=== PATIENT | male | born 1945 | race Caucasian/White ===

== ENCOUNTER 2017-01-07 18:11 | Inpatient (IN) | payer OTHER ==
[~2017-01-07] VITALS: Ht 175.3 cm; Wt 81.2 kg
[2017-01-07 18:39] VITALS: BP 150/68
[2017-01-07] MEDS ORDERED: Tylenol #3 tab (300mg/30mg) ORAL ONE (19:15)
[2017-01-07] MEDS ORDERED: ACETAMINOPHEN-1 EAC1 ORAL (20:54)
[2017-01-07 22:00] VITALS: BP 132/88
[2017-01-07] MEDS ORDERED: Diltiazem 25mg/5ml IV ONE ×3 (22:11→23:45)
[2017-01-07 22:19] LABS: BASOPHILS % (AUTO) 2.9 % (0.0-2.0); EOSINOPHILS % (AUTO) 3.4 % (0.0-3.0); LYMPHOCYTES % (AUTO) 25.7 % (20.0-45.0); MEAN CORPUSCULAR HEMOGLOBIN 29.4 PG (27.0-31.0); MEAN CORPUSCULAR HGB CONC 32.1 G/DL (32.0-36.0); MEAN CORPUSCULAR VOLUME 92 FL (80-99); MEAN PLATELET VOLUME 9.5 FL (6.5-10.1); MONOCYTES % (AUTO) 8.4 % (1.0-10.0); NEUTROPHILS % (AUTO) 59.6 % (45.0-75.0); PLATELET COUNT 219 K/UL (150-450); RED CELL DISTRIBUTION WIDTH 12.7 % (11.6-14.8)
--- NOTE | 2017-01-07 22:20 | Emergency Room Report ---
History of Present Illness General Chief Complaint: Multiple Trauma/Fall Source: Patient Present Illness HPI The patient is a 71-year-old male with a history of hypertension and diabetes presenting for a fall. The patient states that he had a mechanical fall last night but is unsure what he tripped on. He fell onto his right wrist, and left elbow, and then hit the left side of his face. He denies loss of consciousness. Pain is described as a 5/10 dull ache and does not radiate from these locations. It worse with touch. He denies other symptoms including nausea, vomiting, fever, dizziness, blurred vision, neck pain, redness of breath, chest pain, numbness or tingling Allergies: Coded Allergies: No Known Allergies (Unverified , 01/07/17) Patient History Past Medical History: see triage record Pertinent Family History: none Reviewed Nursing Documentation: PMH: Agreed, PSxH: Agreed Nursing Documentation-[facility] Past Medical History: No History, Except For Hx Hypertension: Yes Hx Diabetes: Yes Hx Cerebrovascular Accident: Yes - 2008 Review of Systems All Other Systems: negative except mentioned in HPI Physical Exam Vital Signs Date Time Temp Pulse Resp B/P Pulse Ox O2 Delivery O2 Flow Rate FiO2 01/07/17 18:29 98.1 85 18 150/68 97 Room Air Sp02 EP Interpretation: reviewed, normal General Appearance: no apparent distress, alert, GCS 15, non-toxic Head: normocephalic, other - Contusion To L eye Eyes: left eye lid inflammation, left eye other - contusion , bilateral eye EOMI, bilateral eye PERRL ENT: hearing grossly normal, normal pharynx, no angioedema, normal voice Neck: full range of motion, no bony tend, supple/symm/no masses Respiratory: chest non-tender, lungs clear, normal breath sounds, speaking full sentences Cardiovascular #1: no edema, no murmur, tachycardia Musculoskeletal: back normal, gait/station normal, normal range of motion, calf tenderness, tender - TTP over the R wrist and L elbow Neurologic: alert, oriented x3, responsive, motor strength/tone normal, sensory intact, normal gait, speech normal Psychiatric: judgement/insight normal, memory normal, mood/affect normal, no suicidal/homicidal ideation Skin: normal color, no rash, warm/dry, well hydrated Lymphatic: no adenopathy Procedures Splinting Splinting : Consent: Verbal Location: R wrist Hand-Made Type: plaster Splint: sugar-tong Pre-Proc Neuro Vasc Exam: normal Post-Proc Neuro Vasc Exam: normal Patient Tolerated: Well Complications: None Medical Decision Making PA Attestation Dr. Stone is my supervising physician. Patient management was discussed with my supervising physician Diagnostic Impression: Primary Impression: Contusion, eye, left Qualified Codes: S05.12XA - Contusion of eyeball and orbital tissues, left eye , initial encounter Additional Impressions: Wrist fracture, right Qualified Codes: S62.101A - Fracture of unspecified carpal bone, right wrist, initial encounter for closed fracture Rapid atrial fibrillation Head injury, acute, without loss of consciousness Qualified Codes: S09.90XA - Unspecified injury of head, initial encounter ER Course The patient is a 71-year-old male with a history of hypertension diabetes presenting for a fall. Differential diagnoses considered but not limited to: Fracture, sprain, contusion, dislocation, among others Physical exam: Upon being triaged and first assessment, heart rate is within normal limits. No apparent distress. Head is normocephalic. There is ecchymosis surrounding the left eye. Right wrist is diffusely tender. Limited active range of motion. There is edema. Left elbow: Tenderness to palpation over olecranon. No edema. Full active range of motion. Otherwise exam unremarkable Imaging: CT of facial bones shows soft tissue swelling around left eye. Otherwise unremarkable Right wrist x-ray shows a fracture of the distal radius. Left elbow x-ray unremarkable The patient is placed in a right arm sugar tong splint. Upon being discharged, the patient's heart rate was noted to be significantly elevated ranging from 130 to 150. An EKG was done and the patient was found to be in atrial fibrillation. The patient denies any cardiac history and currently denies any chest pain or shortness of breath. The patient will be reevaluated at this time and is signed out to Dr. Stone. Laboratory Tests Test 01/07/17 21:45 White Blood Count 9.0 K/UL (4.8-10.8) Red Blood Count 4.30 M/UL (4.70-6.10) L Hemoglobin 12.6 G/DL (14.2-18.0) L Hematocrit 39.4 % (42.0-52.0) L Mean Corpuscular Volume 92 FL (80-99) Mean Corpuscular Hemoglobin 29.4 PG (27.0-31.0) Mean Corpuscular Hemoglobin Concent 32.1 G/DL (32.0-36.0) Red Cell Distribution Width 12.7 % (11.6-14.8) Platelet Count 219 K/UL (150-450) Mean Platelet Volume 9.5 FL (6.5-10.1) Neutrophils (%) (Auto) 59.6 % (45.0-75.0) Lymphocytes (%) (Auto) 25.7 % (20.0-45.0) Monocytes (%) (Auto) 8.4 % (1.0-10.0) Eosinophils (%) (Auto) 3.4 % (0.0-3.0) H Basophils (%) (Auto) 2.9 % (0.0-2.0) H Prothrombin Time 10.0 SEC (9.30-11.50) Prothrombin Time INR 1.0 (0.9-1.1) PTT 26 SEC (23-33) Sodium Level 143 mEQ/L (135-145) Potassium Level 4.4 mEQ/L (3.4-4.9) Chloride Level 103 mEQ/L (98-107) Carbon Dioxide Level 21 mEQ/L (20-30) Anion Gap 19 (5-15) H Blood Urea Nitrogen 18 mg/dL (7-23) Creatinine 1.3 mg/dL (0.7-1.2) H Estimate Glomerular Filtration Rate mL/min (>60) Glucose Level 125 mg/dL (74-106) H Calcium Level 9.3 mg/dL (8.6-10.2) Total Bilirubin 1.0 mg/dL (0.0-1.2) Aspartate Amino Transferase (AST) 11 U/L (5-40) Alanine Aminotransferase (ALT) 7 U/L (3-41) Alkaline Phosphatase 58 U/L (40-129) Total Creatine Kinase 102 U/L (38-174) Creatine Kinase MB 2.2 ng/mL (< 6.7) Creatine Kinase MB Relative Index 2.1 Troponin I < 0.30 ng/mL (<=0.30) Total Protein 7.1 g/dL (6.6-8.7) Albumin 4.0 g/dL (3.5-5.2) Globulin 3.1 g/dL Albumin/Globulin Ratio 1.2 (1.0-2.7) Lab Results Impression CBC unremarkable. No leukocytosis. CMP unremarkable. No electrolyte imbalance. Cardiac markers unremarkable EKG Diagnostic Results EP Interpretation: Atrial fibrillation Rate: tachycardiac Rhythm: other - irregular ST Segments: no acute changes ASA given to the pt in ED: Lalita RODRIGUEZ Scribe Text I reviewed this EKG with Dr. Stone during the singing out of this patient. Dr. Stone has taken over for this patient. Chest X-Ray Diagnostic Results # of Views/Limited/Complete: 1 View Interpretation: no consolidation, no effusion, no pneumothorax Indication: Other - Tachycardia Impression: No acute disease Date Electronically Signed: Jan 07, 2017 Time Electronically Signed: 22:30 Interpreting ER Physician: Dr. Bertha RODRIGUEZ Scribe Text This CXR was reviewed with Dr. Stone and was found to be unremarkable. Other X-Ray Diagnostic Results X-Ray ordered: R wrist # of Views/Limited Vs Complete: 3 View Interpretation: other - fracture of distal radius Indication: Pain Impression: No acute disease Date Electronically Signed: Jan 07, 2017 Time Electronically Signed: 22:18 Interpreting ER Physician: Dr. Bertha RODRIGUEZ Scribe Text I am acting as scribe for my supervising physician. My supervising physician's interpretation of the R wrist xrays are there are no fractures, dislocations or soft tissue swelling. CT/MRI/US Diagnostic Results CT/MRI/US Diagnostic Results #1: Imaging Test Ordered: CT facial bones Impression There is soft tissue swelling around the left eye. Otherwise unremarkable CT/MRI/US Diagnostic Results #2: Imaging Test Ordered: CT head Impression unremarkable Last Vital Signs Date Time Temp Pulse Resp B/P Pulse Ox O2 Delivery O2 Flow Rate FiO2 01/07/17 20:12 98.1 01/07/17 18:39 18 150/68 97 Room Air 01/07/17 18:29 85 Status: worsened Disposition: ADMITTED INPATIENT Condition: Serious Signed Out To: Dr. Stone Scripts Acetaminophen With Codeine (T#3) (TYLENOL #3 TAB*) Y Tab 1 TAB ORAL Q6HR Y for For Pain, #10 TAB Prov: FERCHO CHAN P.A. 6/19/17 Patient Instructions: Eye Contusion, Wrist Fracture, Cast or Splint Care Additional Instructions: I discussed my findings with the patient. All questions and concerns have been answered. Treatment and medication compliance have been addressed. I advised the patient that they need to follow up with PMD in 3-5 days. Return to ED if pain remains or worsens, numbness or tingling occurs, new rash is noticed, fever is noticed, or if needed for any reason. Patient verbalized understanding of discharge instructions. FERCHO CHAN. Jan 07, 2017 22:19
[2017-01-07 22:33] LABS: TROPONIN I < 0.30 ng/mL (<=0.30)
[2017-01-07 22:37] LABS: ALANINE AMINOTRANSFERASE 7 U/L (3-41); ALBUMIN/GLOBULIN RATIO 1.2 (1.0-2.7); ANION GAP 19 (5-15); ASPARTATE AMINO TRANSFERASE 11 U/L (5-40); CALCIUM 9.3 mg/dL (8.6-10.2); CARBON DIOXIDE 21 mEQ/L (20-30); CHLORIDE 103 mEQ/L (98-107); CREATININE 1.3 mg/dL (0.7-1.2); HEMOLYSIS 4; POTASSIUM 4.4 mEQ/L (3.4-4.9); SODIUM 143 mEQ/L (135-145); TOTAL PROTEIN 7.1 g/dL (6.6-8.7)
[2017-01-07 22:47] LABS: CKMB 2.2 ng/mL (< 6.7)
[2017-01-08] MEDS ORDERED: Ketorolac 30mg Inj IV PRN
[2017-01-08] MEDS ORDERED: Morphine Sulfate 2mg/ml Inj IVP PRN
[2017-01-08] MEDS ORDERED: Miralax 17gm pkt ORAL PRN
[2017-01-08] MEDS ORDERED: Metoprolol 5mg/5ml Inj IVP PRN
[2017-01-08] MEDS ORDERED: DuoNeb 0.5-3(2.5)mg/3ml neb HHN PRN
[2017-01-08] MEDS ORDERED: Enalaprilat 2.5mg/2ml Inj IV PRN
[2017-01-08] MEDS ORDERED: Diltiazem 25mg/5ml IV PRN
[2017-01-08] MEDS ORDERED: Nitroglycerin Subl 0.4mg tab (Bottle Of 25) SL PRN
--- NOTE | 2017-01-08 | Emergency Room Report ---
History of Present Illness General Chief Complaint: Multiple Trauma/Fall Source: Patient Present Illness HPI This is a 71-year-old male who initially presents with chief complaint of mechanical fall with head injury and had a wrist fracture. As he was being discharged, his heart rate was in the 140-150. He has no complaint. Never had this problem before. He was sent to the main ER and signed out to me. Patient denies any fever chills denies any nausea vomiting. Again he fell last night. He said he tripped but not remember how. Allergies: Coded Allergies: No Known Allergies (Unverified , 01/07/17) Patient History Past Medical History: see triage record, old chart reviewed, HTN Past Surgical History: other Pertinent Family History: none Social History: Denies: smoking Immunizations: other Reviewed Nursing Documentation: PMH: Agreed, PSxH: Agreed Nursing Documentation-PMH Past Medical History: No History, Except For Hx Hypertension: Yes Hx Diabetes: Yes Hx Cerebrovascular Accident: Yes - 2008 Review of Systems Eye: Denies: blurred vision, eye pain ENT: Denies: ear pain, nose congestion, throat swelling Respiratory: Denies: cough, shortness of breath Cardiovascular: Denies: chest pain, palpitations Gastrointestinal: Denies: abdominal pain, diarrhea, nausea, vomiting Musculoskeletal: Denies: back pain, joint pain Skin: Denies: rash Neurological: Denies: headache, numbness Endocrine: Denies: increased thirst, increased urine Hematologic/Lymphatic: Denies: easy bruising All Other Systems: negative except mentioned in HPI Physical Exam Vital Signs Date Time Temp Pulse Resp B/P Pulse Ox O2 Delivery O2 Flow Rate FiO2 01/07/17 18:29 98.1 85 18 150/68 97 Room Air initial vitals unremarkable. Repeat heart rate was 140, atrial fibrillation. Sp02 EP Interpretation: reviewed, normal General Appearance: well appearing, no apparent distress, alert Head: normocephalic, other - Periorbital ecchymosis of the left thigh Eyes: bilateral eye EOMI, bilateral eye PERRL ENT: hearing grossly normal, normal pharynx Neck: full range of motion, supple, no meningismus Respiratory: chest non-tender, lungs clear, normal breath sounds Cardiovascular #1: regular rate, rhythm, no murmur Gastrointestinal: normal bowel sounds, non tender, no mass, no organomegaly, no bruit, non-distended Musculoskeletal: back normal, gait/station normal, normal range of motion, other - Right forearm in a volar splint Neurologic: alert, oriented x3 Psychiatric: mood/affect normal Skin: warm/dry Procedures Critical Care Time Critical Care Time Critical care is mandated in this patient who presented with up in A. fib. Patient require my urgent intervention to attenuate the risks of metabolic collapse which may lead to cardiovascular collapse and . Critical care time is 35 minutes excluding any reportable procedure. Critical care time included evaluation, multiple reevaluation, looking at old charts, interpreting laboratory and diagnostic data, discussing case with patient and family and consultants, and charting. Medical Decision Making Diagnostic Impression: Primary Impression: Contusion, eye, left Qualified Codes: S05.12XA - Contusion of eyeball and orbital tissues, left eye , initial encounter Additional Impressions: Wrist fracture, right Qualified Codes: S62.101A - Fracture of unspecified carpal bone, right wrist, initial encounter for closed fracture Head injury, acute, without loss of consciousness Qualified Codes: S09.90XA - Unspecified injury of head, initial encounter Rapid atrial fibrillation ER Course Patient presents with fall. He may have had a syncopal episode from rapid A. fib. Rate control with Cardizem. He has no symptoms from it. Labs unremarkable. Blood in it for further workup and cardiology consult. EKG Diagnostic Results EKG Time: 23:59 EP Interpretation: yes Rate: tachycardiac Rhythm: other - Atrial fib ST Segments: other - Nonspecific ST changes Rhythm Strip Diag. Results Rhythm Strip Time: 23:59 EP Interpretation: yes Rate: 89 Rhythm: no PVC's, no ectopy, other - A. fib Chest X-Ray Diagnostic Results Chest X-Ray Ordered: Yes # of Views/Limited/Complete: 1 View Interpretation: no consolidation, no effusion, no pneumothorax Indication: Shortness of Breath Impression: No acute disease Date Electronically Signed: Jan 07, 2017 Time Electronically Signed: 23:59 Interpreting ER Physician: Dillan Stone MD CT/MRI/US Diagnostic Results CT/MRI/US Diagnostic Results : Imaging Test Ordered: CT head Impression read by radiologist. Negative. Last Vital Signs Date Time Temp Pulse Resp B/P Pulse Ox O2 Delivery O2 Flow Rate FiO2 01/07/17 23:47 147 148/87 01/07/17 20:12 98.1 01/07/17 18:39 18 97 Room Air Status: improved Disposition: ADMITTED INPATIENT Condition: Serious Scripts Acetaminophen With Codeine (T#3) (TYLENOL #3 TAB*) Y Tab 1 TAB ORAL Q6HR Y for For Pain, #10 TAB Prov: ROCIOFERCHO Ayaan 01/07/17 Patient Instructions: Eye Contusion, Wrist Fracture, Cast or Splint Care Additional Instructions: I discussed my findings with the patient. All questions and concerns have been answered. Treatment and medication compliance have been addressed. I advised the patient that they need to follow up with PMD in 3-5 days. Return to ED if pain remains or worsens, numbness or tingling occurs, new rash is noticed, fever is noticed, or if needed for any reason. Patient verbalized understanding of discharge instructions. DILLAN STONE M.D. Jan 08, 2017 00:00
[2017-01-08] MEDS ORDERED: Diltiazem 25mg/5ml IV ONE (01:00)
[2017-01-08 02:15] VITALS: BP 107/56
[2017-01-08] MEDS ORDERED: LOVASTATIN40 MG ORAL (02:30)
[2017-01-08] MEDS ORDERED: METFORMIN HCL1000 M3 PO (02:30)
[2017-01-08] MEDS ORDERED: LISINOPRIL20 MG ORAL (02:30)
[2017-01-08] MEDS ORDERED: KCL 10MEQ/10 MEQ/100 IVPB (02:30)
[2017-01-08] MEDS ORDERED: POTASSIUM CHLO10 ME2 PO (02:30)
[2017-01-08] MEDS ORDERED: ATENOLOL50 MG ORAL (02:30)
[2017-01-08] MEDS ORDERED: TENORMIN50 MG ORAL (05:06)
[2017-01-08] MEDS ORDERED: PRINIVIL20 MG ORAL (05:08)
[2017-01-08] MEDS ORDERED: POTASSIUM40 MEQ/11 PO (05:10)
[2017-01-08] MEDS ORDERED: FELODIPINE ER5 MG PO (05:13)
[2017-01-08] MEDS ORDERED: CLOPIDOGREL75 MG ORAL (05:13)
[2017-01-08] MEDS ORDERED: GLIPIZIDE5 MG ORAL (05:15)
[2017-01-08] MEDS ORDERED: METFORMIN HCL1000 M1 ORAL (05:16)
[2017-01-08 07:51] VITALS: BP 131/77
[2017-01-08 08:11] LABS: BASOPHILS % (AUTO) 2.1 % (0.0-2.0); EOSINOPHILS % (AUTO) 4.7 % (0.0-3.0); LYMPHOCYTES % (AUTO) 26.7 % (20.0-45.0); MEAN CORPUSCULAR HEMOGLOBIN 29.1 PG (27.0-31.0); MEAN CORPUSCULAR HGB CONC 32.4 G/DL (32.0-36.0); MEAN CORPUSCULAR VOLUME 90 FL (80-99); MEAN PLATELET VOLUME 8.2 FL (6.5-10.1); MONOCYTES % (AUTO) 8.8 % (1.0-10.0); NEUTROPHILS % (AUTO) 57.7 % (45.0-75.0); PLATELET COUNT 206 K/UL (150-450); RED BLOOD COUNT 4.41 M/UL (4.70-6.10); RED CELL DISTRIBUTION WIDTH 12.6 % (11.6-14.8); WHITE BLOOD COUNT 9.8 K/UL (4.8-10.8)
[2017-01-08 08:23] LABS: TROPONIN I < 0.30 ng/mL (<=0.30)
[2017-01-08 08:25] LABS: CRP QUANT 5.6 mg/dL (< 0.5)
[2017-01-08 08:35] LABS: THYROID STIMULATING HORMONE 1.16 uIU/mL (0.300-4.500)
[2017-01-08] MEDS ORDERED: Digoxin 0.5mg/2ml Inj IVP SCH (09:00)
--- NOTE | 2017-01-08 09:32 | Diagnostic Imaging Report ---
Indication: TRAUMA head trauma status post fall Technique: spiral acquisitions obtained through the brain. Angled axial and coronal 5 x 5 mm slices were reconstructed. No IV contrast utilized. Radiation dose was minimized using automated exposure control Total dose length product 1411 mGycm. CTDIvol(s) 70 mGy Comparison: none FINDINGS: There is left periorbital soft tissue swelling. No acute hemorrhage or edema. No mass effect or midline shift. There is age-related enlargement of the ventricles and extra axial CSF spaces. There is periventricular deep white matter ischemic change. There is also focal widening of the high left parietal sulcus which may indicate old cortical infarct. Normal grant-white differentiation. Visualized orbits are unremarkable. Visualized sinuses are unremarkable. Intact calvarium. IMPRESSION: Chronic and age-related changes. 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 The CT scanner at [facility] is accredited by the [employer] and the scans are performed using protocols designed to limit radiation exposure to as low as reasonably achievable to attain images of sufficient resolution adequate for diagnostic evaluation
--- NOTE | 2017-01-08 10:51 | Diagnostic Imaging Report ---
Indications: PAIN, status post fall, left eye injury Technique: Spiral images obtained through the facial bones. No IV contrast utilized. Multiplanar reconstructions were generated.Total dose length product 516 mGycm. CTDIvol(s) 28mGy. Dose reduction achieved using automated exposure control Comparison: None Findings: There is left periorbital soft tissue swelling noted. No acute fracture. No worrisome sinus opacification. The optic globes are intact. There is minimal mucosal thickening in the inferior left maxillary sinus. The remaining sinuses are clear. The nasal septum is slightly deviated to the right. There is evidence of extensive dental disease, with multiple caries as well as evidence of multiple apical root abscesses of the latter particularly evident at the level of the mandibular teeth. The visualized intracranial structures demonstrates cerebral volume loss, otherwise unremarkable. The facial soft tissues are unremarkable Impression: Left periorbital soft tissue swelling. No underlying bony trauma Sinus disease This agrees with the preliminary interpretation provided overnight by Dr. Smith The CT scanner at [facility] is accredited by the [employer] and the scans are performed using protocols designed to limit radiation exposure to as low as reasonably achievable to attain images of sufficient resolution adequate for diagnostic evaluation.
[2017-01-08 11:24] VITALS: BP 148/79
--- NOTE | 2017-01-08 12:51 | History and Physical ---
History of Present Illness General Date patient seen: Jan 08, 2017 Reason for Hospitalization: Multiple Trauma/Fall Present Illness HPI 71-year-old male with a history of hypertension and diabetes presented to ER with CC of a fall. The patient states that he had a mechanical fall last night but is unsure what he tripped on. He denies loss of consciousness. Pain is described as a 5/10 dull ache and does not radiate from these locations. It worse with touch. He was found to be in atrial fibrillation and admitted to telemetry for further evaluation. Allergies: Coded Allergies: No Known Allergies (Unverified , 01/07/17) Medication History Scheduled Atenolol* (Tenormin*), 50 MG ORAL BID, (Reported) Clopidogrel* (Clopidogrel*), 75 MG ORAL DAILY, (Reported) Felodipine (Felodipine Er), 5 MG PO DAILY, (Reported) Glipizide* (Glipizide*), 5 MG ORAL BIDAC, (Reported) Lisinopril* (Prinivil*), 20 MG ORAL BID, (Reported) Lovastatin (Lovastatin), 40 MG ORAL BEDTIME, (Reported) Metformin Hcl* (Metformin Hcl*), 1,000 MG ORAL BID, (Reported) Potassium Chloride (Potassium Chloride), 40 MEQ PO BID, (Reported) Scheduled PRN Acetaminophen With Codeine (T#3) (Tylenol #3 Tab*), 1 TAB ORAL Q6HR PRN for For Pain Discontinued Medications Potassium Chloride (Potassium Chloride), 10 MEQ IVPB, (Reported) Discontinued Reason: Prescription changed Patient History Healthcare decision maker Resuscitation status Full Code Advanced Directive on File Past Medical/Surgical History Past Medical/Surgical History: (1) History of CVA (cerebrovascular accident) (2) Diabetes (3) Hypertension Review of Systems All Other Systems: negative except mentioned in HPI Physical Exam General Appearance: WD/WN Lines, tubes and drains: peripheral HEENT: normocephalic, atraumatic Neck: non-tender, normal alignment Respiratory/Chest: chest wall non-tender, lungs clear Cardiovascular/Chest: normal peripheral pulses, normal rate Abdomen: normal bowel sounds Genitourinary/Rectal: normal genital exam Extremities: normal range of motion 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 Last 24 Hour Vital Signs Date Time Temp Pulse Resp B/P Pulse Ox O2 Delivery O2 Flow Rate FiO2 01/08/17 11:24 96.2 74 20 148/79 97 Room Air 01/08/17 08:46 80 01/08/17 08:00 79 01/08/17 07:51 97.9 75 20 131/77 96 Room Air 01/08/17 07:07 75 18 Room Air 01/08/17 04:00 87 01/08/17 03:15 111 01/08/17 02:15 99 28 107/56 99 Room Air 01/08/17 02:15 98.9 99 28 107/56 99 Room Air 01/08/17 01:21 158 148/87 01/08/17 01:06 158 01/07/17 23:47 147 148/87 01/07/17 22:17 85 150/68 01/07/17 22:00 98.9 133 22 132/88 99 Room Air 01/07/17 20:12 98.1 01/07/17 18:39 98.1 18 150/68 97 Room Air 01/07/17 18:29 98.1 85 18 150/68 97 Room Air Intake and Output 01/07/17 01/08/17 19:00 07:00 Intake Total 240 ml Balance 240 ml Intake Oral 240 ml # Voids 1 Laboratory Tests Test 01/07/17 21:45 01/08/17 07:45 White Blood Count 9.0 K/UL (4.8-10.8) 9.8 K/UL (4.8-10.8) Red Blood Count 4.30 M/UL (4.70-6.10) L 4.41 M/UL (4.70-6.10) L Hemoglobin 12.6 G/DL (14.2-18.0) L 12.8 G/DL (14.2-18.0) L Hematocrit 39.4 % (42.0-52.0) L 39.7 % (42.0-52.0) L Mean Corpuscular Volume 92 FL (80-99) 90 FL (80-99) Mean Corpuscular Hemoglobin 29.4 PG (27.0-31.0) 29.1 PG (27.0-31.0) Mean Corpuscular Hemoglobin Concent 32.1 G/DL (32.0-36.0) 32.4 G/DL (32.0-36.0) Red Cell Distribution Width 12.7 % (11.6-14.8) 12.6 % (11.6-14.8) Platelet Count 219 K/UL (150-450) 206 K/UL (150-450) Mean Platelet Volume 9.5 FL (6.5-10.1) 8.2 FL (6.5-10.1) Neutrophils (%) (Auto) 59.6 % (45.0-75.0) 57.7 % (45.0-75.0) Lymphocytes (%) (Auto) 25.7 % (20.0-45.0) 26.7 % (20.0-45.0) Monocytes (%) (Auto) 8.4 % (1.0-10.0) 8.8 % (1.0-10.0) Eosinophils (%) (Auto) 3.4 % (0.0-3.0) H 4.7 % (0.0-3.0) H Basophils (%) (Auto) 2.9 % (0.0-2.0) H 2.1 % (0.0-2.0) H Prothrombin Time 10.0 SEC (9.30-11.50) 10.0 SEC (9.30-11.50) Prothromb Time International Ratio 1.0 (0.9-1.1) 1.0 (0.9-1.1) Activated Partial Thromboplast Time 26 SEC (23-33) 26 SEC (23-33) Sodium Level 143 mEQ/L (135-145) Potassium Level 4.4 mEQ/L (3.4-4.9) Chloride Level 103 mEQ/L (98-107) Carbon Dioxide Level 21 mEQ/L (20-30) Anion Gap 19 (5-15) H Blood Urea Nitrogen 18 mg/dL (7-23) Creatinine 1.3 mg/dL (0.7-1.2) H Estimat Glomerular Filtration Rate mL/min (>60) Glucose Level 125 mg/dL (74-106) H Calcium Level 9.3 mg/dL (8.6-10.2) Total Bilirubin 1.0 mg/dL (0.0-1.2) Aspartate Amino Transf (AST/SGOT) 11 U/L (5-40) Alanine Aminotransferase (ALT/SGPT) 7 U/L (3-41) Alkaline Phosphatase 58 U/L (40-129) Total Creatine Kinase 102 U/L (38-174) Creatine Kinase MB 2.2 ng/mL (< 6.7) Creatine Kinase MB Relative Index 2.1 Troponin I < 0.30 ng/mL (<=0.30) < 0.30 ng/mL (<=0.30) Total Protein 7.1 g/dL (6.6-8.7) Albumin 4.0 g/dL (3.5-5.2) Globulin 3.1 g/dL Albumin/Globulin Ratio 1.2 (1.0-2.7) C-Reactive Protein, Quantitative 5.6 mg/dL (< 0.5) H Triglycerides Level 90 mg/dL (< 150) Cholesterol Level 133 mg/dL (< 200) LDL Cholesterol 49 mg/dL (60-99) L HDL Cholesterol 66 mg/dL (> 60) H Cholesterol/HDL Ratio 2.0 (3.3-4.4) L Thyroid Stimulating Hormone (TSH) 1.160 uIU/mL (0.300-4.500) Height (Feet): 5 Height (Inches): 9.00 Weight (Pounds): 179 Medications Current Medications Medications (Trade) Dose Ordered Sig/Kim Route PRN Reason Start Time Stop Time Status Last Admin Dose Admin Acetaminophen (Tylenol) 650 mg Q4H PRN ORAL FEVER 01/08/17 00:00 02/07/17 00:00 Albuterol/ Ipratropium (DuoNeb 0.5-3(2.5)mg/3ml) 3 ml Q4H PRN HHN Shortness of Breath 01/08/17 00:00 01/13/17 00:00 Digoxin (Lanoxin) 0.25 mg DAILY IVP 01/08/17 09:00 02/07/17 08:59 01/08/17 08:46 Diltiazem HCl (Cardizem) 10 mg Q1H PRN IV heart rate more than 120, 01/08/17 00:00 02/07/17 00:00 Enalaprilat (Vasotec) 2.5 mg Q6H PRN IV sbp more than 160 01/08/17 00:00 02/07/17 00:00 Ketorolac Tromethamine (Toradol 30mg) 15 mg Q6H PRN IV moderate pain ( 4-6) 01/08/17 00:00 01/13/17 00:00 Metoprolol Tartrate (Lopressor) 5 mg Q1H PRN IVP heart rate more than 140 01/08/17 00:00 02/07/17 00:00 Morphine Sulfate (Morphine Sulfate) 2 mg Q4H PRN IVP severe Pain (Pain Scale 7-10) 01/08/17 00:00 01/15/17 00:00 Nitroglycerin (Ntg) 0.4 mg Q5M PRN SL Prn Chest Pain 01/08/17 00:00 02/07/17 00:00 Ondansetron HCl (Zofran) 4 mg Q6H PRN IVP Nausea & Vomiting 01/08/17 00:00 02/07/17 00:00 Pantoprazole (Protonix) 40 mg DAILY ORAL 01/08/17 09:00 02/07/17 08:59 01/08/17 08:46 Polyethylene Glycol (Miralax) 17 gm DAILYPRN PRN ORAL Constipation 01/08/17 00:00 02/07/17 00:00 Temazepam (Restoril) 15 mg HSPRN PRN ORAL Insomnia 01/08/17 00:00 01/15/17 00:00 Assessment/Plan Problem List: (1) Rapid atrial fibrillation ICD Codes: I48.91 - Unspecified atrial fibrillation SNOMED: 392621722 (2) History of CVA (cerebrovascular accident) ICD Codes: Z86.73 - Personal history of transient ischemic attack (TIA), and cerebral infarction without residual deficits SNOMED: 266766739 (3) Hypertension ICD Codes: I10 - Essential (primary) hypertension SNOMED: 42680754 (4) Diabetes ICD Codes: E11.9 - Type 2 diabetes mellitus without complications SNOMED: 69551796 Assessment/Plan rate control cardio evaluation echo cardiogram anticoagulation symptomatic treatment VERONICA WILD Jan 08, 2017 12:51
--- NOTE | 2017-01-08 12:59 | Diagnostic Imaging Report ---
Clinical Indication:PAIN Technique: 3 views of the right wrist Comparison: None Findings: There is a comminuted nondisplaced fracture of the distal radius. This is slightly anteriorly angulated. No associated ulnar fracture. Fracture involves the articular surface. No carpal fracture. Impression: Positive for distal radial fracture Review of the electronic medical record indicates this was recognized by the ED physician
--- NOTE | 2017-01-08 13:04 | Diagnostic Imaging Report ---
Indication: PAIN, status post fall Technique: One view of the chest Comparison: none Findings: Lungs and pleural spaces are clear. Heart size is normal. The bones are grossly intact Impression: No acute process
--- NOTE | 2017-01-08 13:33 | Consultation ---
Consult Note Consult Note Cardiology for Dr. Carney Full note dictated # [id number] MICHAEL HUNT Jan 08, 2017 13:33
--- NOTE | 2017-01-08 13:37 | Diagnostic Imaging Report ---
Indications:PAIN Technique: Three or 4 views of the left elbow Comparison: None Findings:No acute fractures. No dislocations. Joint spaces are preserved Impression:Negative
--- NOTE | 2017-01-08 14:47 | Cardiology Report ---
APPROVED REPORT EXAM: Two-dimensional and M-mode echocardiogram with Doppler and color Doppler. INDICATION Left Ventricular Function M-Mode DIMENSIONS IVSd0.6 (0.7-1.1cm)Left Atrium (MM)3.8 (1.6-4.0cm) LVDd4.7 (3.5-5.6cm)Aortic Root2.6 (2.0-3.7cm) PWd0.7 (0.7-1.1cm)Aortic Cusp Exc.2.0 (1.5-2.0cm) LVDs3.1 (2.5-4.0cm) PWs1.2 cm Normal left ventricular chamber size, systolic function and wall motion. Left ventricular ejection fraction estimated to be 55 %. No evidence of ventricular hypertrophy. Trivial pericardial effusion. All other cardiac chamber sizes are within normal limits. Mild focal aortic valve sclerosis with adequate cusp excursion. Mildly thickened mitral valve leaflets with normal excursion. Mild mitral annulus and aortic root calcification. Pulmonic valve not well visualized. Normal tricuspid valve structure. IVC is normal in size with physiologic collapse. A color flow and spectral Doppler study was performed and revealed: No aortic regurgitation. Trace mitral regurgitation. Mitral inflow velocities indicates normal left ventricular diastolic function. Trace tricuspid regurgitation. Tricuspid systolic velocities suggests peak right ventricular systolic pressure of 10 mmHg. Trace pulmonic regurgitation present.
--- NOTE | 2017-01-08 14:58 | Cardiology Report ---
APPROVED REPORT EKG Measurement Heart [id number] Atrial flutter with variable AV block with premature ventricular or aberrantly conducted complexes Abnormal ECG
[2017-01-08 15:38] VITALS: BP 125/71
[2017-01-08] MEDS ORDERED: Warfarin Sodium 5mg ORAL ONE (17:00)
[2017-01-08] MEDS ORDERED: Sotalol 80mg tab ORAL SCH (21:00)
--- NOTE | 2017-01-08 21:30 | Consultation ---
DATE OF CONSULTATION: REASON FOR CONSULT: Atrial fibrillation with rapid ventricular rate. HISTORY OF PRESENT ILLNESS: The patient is a 71-year-old white male, with history of type 2 diabetes, hypertension, remote history of CVA, and history of recent syncopal episodes, who was admitted following a fall outside. He states that he tripped, but did not lose consciousness. He suffered a right wrist fracture and ecchymosis and injury to the left side of his face during the fall. He did not have any fractures of the facial bones and had no acute findings on head CT. There was an old left parietal cortical infarct noted. He was noted to be in atrial fibrillation with ventricular rate 114 beats per minute. On admission, rate subsequently increased to the 140s. He received diltiazem and digoxin and is currently back in normal sinus rhythm. He denies palpitations, dyspnea, or chest pain. PAST MEDICAL HISTORY: As noted above. Type 2 diabetes, hypertension, and syncope. MEDICATIONS: Currently digoxin 0.25 mg intravenous daily, Protonix 40 mg daily, DuoNeb nebulizer every hours p.r.n., nitroglycerin p.r.n., Tylenol p.r.n., and metoprolol p.r.n. ALLERGIES: No known drug allergies. SOCIAL HISTORY: The patient has a remote history of tobacco use [id number]-half packs per day for about 20 years, but stopped smoking about 30 years ago. There is no history of alcohol or drug abuse. PHYSICAL EXAMINATION: VITAL SIGNS: Blood pressure is 148/79, pulse 74 and regular, respirations 20, and afebrile. GENERAL: Alert and well-developed white male, in no acute distress. HEENT: There is ecchymosis of the left periorbital area and temporal area. Pupils are equal, round, and reactive to light. NECK: Supple. There is no jugular venous distention. No carotid bruits. LUNGS: Clear to auscultation bilaterally. HEART: Regular S1 and S2. No murmurs, rubs, S3, or S4. ABDOMEN: Soft and nontender. No palpable mass. EXTREMITIES: There is a splint on the left forearm. No peripheral edema. Pulses are 2+ bilaterally. LABORATORY AND DIAGNOSTIC DATA: Hemoglobin 12.8, white blood count 9800, and platelets 206,000. Potassium 4.4, BUN 18, and creatinine 1.3. Troponin less than 0.3. EKG showed atrial fibrillation with a ventricular rate of 145 beats per minute. Jud -[address]-segment or T-wave changes. Current telemetry shows normal sinus rhythm in the 70s. Chest x-ray shows clear lung scales. No cardiomegaly. ASSESSMENT AND RECOMMENDATIONS: The patient is a 71-year-old man with hypertension, diabetes, and previous history of cerebrovascular accident, who was admitted with a non-syncopal fall although he has had recent episodes of syncope, which are being evaluated. Per the patient's report, he has undergone stress testing, carotid ultrasound, and an event monitor, which did not reveal any cardiac cause of his syncopal episodes. He did have atrial fibrillation on admission with rapid ventricular rates, though not associated with hemodynamic compromise and is now back in normal sinus rhythm. Given his elevated [id number] score, I would favor anticoagulation either with warfarin or NOAC. Sotalol will be started for maintenance of sinus rhythm. Further evaluation for his syncope will be as per the primary cardiologists, who have been taking care of him. Based on his history with one syncopal episode occurring while he was getting up to go the bathroom at night and another while cycling at a spin class and in view of the negative reported cardiac workup, his syncope may be due to a vasovagal response, however, this would be a diagnosis of exclusion. While he is here, we will obtain an echo and check orthostatic vital signs. However, would need to definitively rule out cardiac causes including structural heart disease and arrhythmias. Kathy Hill M.D. DR: LUIS JOB#: [id number] CC:
[2017-01-09] MEDS ORDERED: Digoxin 0.125mg tab ORAL SCH (09:00)
--- NOTE | 2017-01-10 10:51 | Discharge Summary ---
Discharge Summary Hospital Course Date of Admission Jan 07, 2017 at 22:55 Date of Discharge Jan 08, 2017 at 18:45 Admitting Diagnosis new onset rapid afib HPI Everardo Woodard is a 71 year old male who was admitted on Jan 07, 2017 at 22:55 for New Onset Rapid Atrial Fibrilation Hospital Course [id number] Discharge Discharge Disposition Patient was discharged to Acute Care Facility(02) Discharge Diagnoses: Emma Anderson NP Jan 10, 2017 10:51
--- NOTE | 2017-01-10 17:30 | Discharge Summary 2 SIG ---
DATE OF ADMISSION: 01/07/2017 DATE OF DISCHARGE: 01/08/2017 EDUCATION REPORTER: Kathy Hill M.D. BRIEF HOSPITAL COURSE: The patient is a 71-year-old male with history of hypertension and diabetes who presented to ED complaining of a fall. The patient had a mechanical fall the night prior, unsure if he tripped. He denied loss of consciousness. He presented with dull ache on his wrist and left elbow. On evaluation at ED, he had a contusion on the left eye. There was ecchymosis surrounding the left eye. Right wrist was tender with limited active range of motion. Left elbow showed tenderness on palpation over the olecranon. Imaging was done. Left elbow x-ray was unremarkable. Right wrist x-ray showed fracture of the distal radius. CT of the facial bones showed soft tissue swelling around the left eye, otherwise, unremarkable. He was placed on right arm splint. EKG was done and was found to be in rapid atrial fibrillation. The patient was admitted to telemetry for rapid atrial fibrillation and was seen by a java architect. He received diltiazem and digoxin. Troponin was less than 0.3. He had an echocardiogram done that showed EF of 55%. He was started on anticoagulation and was eventually transferred to a contracted facility. FINAL DIAGNOSES: 1. Rapid atrial fibrillation. 2. Hypertension. 3. Diabetes. 4. Non-syncopal fall. 5. Recent episodes of syncope. DISPOSITION: The patient was transferred to a contracted facility. Tania Angel M.D. I have been assigned to dictate discharge summary on this account and I was not involved in the patient's management. Emma Anderson N.P. DR: ALICE JOB#: [id number] CC:
== END 2017-01-08 18:45 | disposition short-term general hospital (02) | DRG 309 ==
LOC: EMR 19:05 → 2E 22:55 → EDBEDREQ 01-08 01:45 → 2E 01-08 06:07
PROC: 2W3CX1Z Immobilization of Right Lower Arm using Splint (ICD-10-PCS; principal; 2017-01-07)
DX: I48.91 Unspecified atrial fibrillation (principal); S52.501A Unspecified fracture of the lower end of right radius, initial encounter for closed fracture; E11.9 Type 2 diabetes mellitus without complications; I10 Essential (primary) hypertension; W01.0XXA Fall on same level from slipping, tripping and stumbling without subsequent striking against object, initial encounter; Z86.73 Personal history of transient ischemic attack (TIA), and cerebral infarction without residual deficits; S00.12XA Contusion of left eyelid and periocular area, initial encounter; Z87.891 Personal history of nicotine dependence
CPT/HCPCS: 36415; 70450; 70486; 71010; 80053; 80061; 82550; 82553; 84443; 84484; 85025; 85610; 85730; 86140; 93005; 93306; 94664

== ENCOUNTER 2017-12-07 18:02 | Emergency (ER) | payer MEDICARE, OTHER ==
[~2017-12-07] VITALS: Ht 180.3 cm; Wt 74.8 kg
[~2017-12-07 18:02] MED LIST: ACETAMINOPHEN-1 EAC1 ORAL; ASPIR 8181 MG ORAL; ATENOLOL50 MG ORAL; CLOPIDOGREL75 MG ORAL; FELODIPINE ER5 MG PO; GLIPIZIDE5 MG ORAL; HYDROCHLOROTHIA25 MG ORAL; KCL 10MEQ/10 MEQ/100 IVPB; LISINOPRIL10 MG ORAL; LISINOPRIL20 MG ORAL; LOVASTATIN40 MG ORAL; METFORMIN HCL1000 M1 ORAL; METFORMIN HCL1000 M3 PO; PLAVIX75 MG ORAL; POTASSIUM CHLO10 ME2 PO; POTASSIUM40 MEQ/11 PO; PRINIVIL20 MG ORAL; TENORMIN50 MG ORAL
[2017-12-07 18:05] VITALS: BP 144/69
[2017-12-07] MEDS ORDERED: Sodium Chloride 500ML 500 ML IV ONE (18:10)
[2017-12-07 18:54] LABS: ANION GAP 13 mmol/L (5-15); BLOOD UREA NITROGEN 29 mg/dL (7-18); CALCIUM 9.3 MG/DL (8.5-10.1); CARBON DIOXIDE 25 MMOL/L (21-32); CHLORIDE 101 MMOL/L (98-107); CREATININE 2.2 MG/DL (0.55-1.30); EOSINOPHILS % (AUTO) 2.1 % (0.0-3.0); HEMATOCRIT 34.2 % (42.0-52.0); MEAN CORPUSCULAR VOLUME 93 FL (80-99); MONOCYTES % (AUTO) 4.2 % (1.0-10.0); NEUTROPHILS % (AUTO) 80.7 % (45.0-75.0); PLATELET COUNT 205 K/UL (150-450); POTASSIUM 4.8 MMOL/L (3.5-5.1); RED BLOOD COUNT 3.68 M/UL (4.70-6.10); SODIUM 139 MMOL/L (136-145); WHITE BLOOD COUNT 9.5 K/UL (4.8-10.8)
--- NOTE | 2017-12-07 19:02 | Diagnostic Imaging Report ---
EXAM: XR Chest, 1 View CLINICAL HISTORY: SYNCOPE TECHNIQUE: Frontal view of the chest. COMPARISON: cxr 01/07/17 FINDINGS: Lungs: Unremarkable. No consolidation. Pleural space: Unremarkable. No pneumothorax. Heart: Unremarkable. No cardiomegaly. Mediastinum: Unremarkable. Bones/joints: Unremarkable. Other findings: IMPRESSION: No acute findings.
[2017-12-07 19:19] LABS: ALANINE AMINOTRANSFERASE 28 U/L (12-78); ALBUMIN 3.8 G/DL (3.4-5.0); ALBUMIN/GLOBULIN RATIO 1.1 (1.0-2.7); ALKALINE PHOSPHATASE 55 U/L (46-116); ASPARTATE AMINO TRANSFERASE 20 U/L (15-37); BILIRUBIN,TOTAL 0.4 MG/DL (0.2-1.0); CKMB 1.8 NG/ML (0.0-3.6); CREATINE KINASE 78 U/L (26-308)
[2017-12-07 19:28] VITALS: BP 131/74
[2017-12-07 20:05] VITALS: BP 131/74
[2017-12-08] MEDS ORDERED: CARVEDILOL25 MG ORAL (02:50)
[2017-12-08] MEDS ORDERED: AMIODARONE HCL400 M1 ORAL (02:50)
--- NOTE | 2017-12-08 14:18 | Emergency Room Report ---
History of Present Illness General Chief Complaint: Syncope Source: Patient, EMS Present Illness HPI Patient is a 72-year-old male brought in by EMS after syncopal episode. Patient reportedly was at a grocery store and suddenly passed out. Patient reports having the premonitory symptoms of lightheadedness. The patient reports having the previous syncopal episodes. Patient states he has been admitted multiple times for this in the past. The patient states he feels normal currently. Patient denies any vomiting or diarrhea. He denies hematemesis or bloody stools. He reports blood sugars greater than 100. Allergies: Coded Allergies: FUROSEMIDE (Unverified Allergy, Unknown, 12/07/17) Patient History Past Medical History: see triage record Reviewed Nursing Documentation: PMH: Agreed; PSxH: Agreed Nursing Documentation-PMH Past Medical History: No History, Except For Hx Cardiac Problems: Yes - AFIB Hx Hypertension: Yes Hx Diabetes: Yes Hx Cancer: No Hx Gastrointestinal Problems: No Hx Cerebrovascular Accident: Yes - 2008 Review of Systems All Other Systems: negative except mentioned in HPI Physical Exam Vital Signs Date Time Temp Pulse Resp B/P (MAP) Pulse Ox O2 Delivery O2 Flow Rate FiO2 12/07/17 17:56 71 20 142/89 100 Room Air 12/07/17 18:05 97.8 97.8 Sp02 EP Interpretation: reviewed, normal General Appearance: normal inspection, well appearing, no apparent distress, alert, GCS 15 Head: atraumatic ENT: normal ENT inspection, hearing grossly normal, normal voice Neck: normal inspection, full range of motion, supple, no bony tend Respiratory: normal inspection, lungs clear, normal breath sounds, no respiratory distress, no retraction, no wheezing Cardiovascular #1: regular rate, rhythm, no edema Gastrointestinal: normal inspection, normal bowel sounds, non tender, soft, no guarding, no hernia Genitourinary: no CVA tenderness Musculoskeletal: normal inspection, back normal, normal range of motion Neurologic: normal inspection, alert, oriented x3, responsive, director commercial sales III-XII nml as tested, speech normal Psychiatric: normal inspection, judgement/insight normal, mood/affect normal Skin: normal inspection, normal color, no rash Medical Decision Making Diagnostic Impression: Primary Impression: Syncope Additional Impressions: CHF (congestive heart failure) Renal insufficiency ER Course Patient presented for syncope. Differential diagnosis included but was not limited to arrhythmia, orthostatic hypotension, hypovolemia, vasovagal, anemia among others.Because of complexity of patient's case laboratory testing and imaging studies were ordered.The laboratory studies are notable for elevated BNP as well as evidence of renal insufficiency. The patient blood sugars noted to be moderately elevatedThe patient was advised that he had high risk of complications due to congestive heart failure associated with syncope. The patient stated that he understood the risks and did not want to be admitted to the hospital. 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 The patient is advised to follow up with primary care doctor in 1-2 days. Patient is advised to return if any worsening condition or if any changes in status that are concerning. This report is dictated with [employer] cpa tax software which may occasionally lead to discrepancies related to use of this software. Labs Test 12/07/17 18:23 White Blood Count 9.5 K/UL (4.8-10.8) Red Blood Count 3.68 M/UL (4.70-6.10) Hemoglobin 11.0 G/DL (14.2-18.0) Hematocrit 34.2 % (42.0-52.0) Mean Corpuscular Volume 93 FL (80-99) Mean Corpuscular Hemoglobin 30.0 PG (27.0-31.0) Mean Corpuscular Hemoglobin Concent 32.3 G/DL (32.0-36.0) Red Cell Distribution Width 13.0 % (11.6-14.8) Platelet Count 205 K/UL (150-450) Mean Platelet Volume 9.3 FL (6.5-10.1) Neutrophils (%) (Auto) 80.7 % (45.0-75.0) Lymphocytes (%) (Auto) 11.0 % (20.0-45.0) Monocytes (%) (Auto) 4.2 % (1.0-10.0) Eosinophils (%) (Auto) 2.1 % (0.0-3.0) Basophils (%) (Auto) 2.0 % (0.0-2.0) Prothrombin Time 10.1 SEC (9.30-11.50) Prothromb Time International Ratio 1.0 (0.9-1.1) Activated Partial Thromboplast Time 18 SEC (23-33) Sodium Level 139 MMOL/L (136-145) Potassium Level 4.8 MMOL/L (3.5-5.1) Chloride Level 101 MMOL/L (98-107) Carbon Dioxide Level 25 MMOL/L (21-32) Anion Gap 13 mmol/L (5-15) Blood Urea Nitrogen 29 mg/dL (7-18) Creatinine 2.2 MG/DL (0.55-1.30) Estimat Glomerular Filtration Rate mL/min (>60) Glucose Level 235 MG/DL (74-106) Calcium Level 9.3 MG/DL (8.5-10.1) Total Bilirubin 0.4 MG/DL (0.2-1.0) Aspartate Amino Transf (AST/SGOT) 20 U/L (15-37) Alanine Aminotransferase (ALT/SGPT) 28 U/L (12-78) Alkaline Phosphatase 55 U/L (46-116) Total Creatine Kinase 78 U/L (26-308) Creatine Kinase MB 1.8 NG/ML (0.0-3.6) Creatine Kinase MB Relative Index 2.3 Troponin I 0.000 ng/mL (0.000-0.056) Pro-B-Type Natriuretic Peptide 1397 pg/mL (0-125) Total Protein 7.4 G/DL (6.4-8.2) Albumin 3.8 G/DL (3.4-5.0) Globulin 3.6 g/dL Albumin/Globulin Ratio 1.1 (1.0-2.7) Lipase 118 U/L (73-393) EKG Diagnostic Results Rate: normal Rhythm: NSR ST Segments: no acute changes Rhythm Strip Diag. Results EP Interpretation: yes Rhythm: NSR, no PVC's, no ectopy Last Vital Signs Date Time Temp Pulse Resp B/P (MAP) Pulse Ox O2 Delivery O2 Flow Rate FiO2 12/07/17 20:05 98.2 75 12 131/74 100 Room Air 98.2 Status: improved Disposition: HOME, SELF-CARE Condition: Stable Patient Instructions: Syncope Shaw Ortega MD December 08, 2017 14:18
--- NOTE | 2017-12-09 13:52 | Cardiology Report ---
APPROVED REPORT EKG Measurement Heart [id number] [place] [id number] Normal sinus rhythm Prolonged QT Abnormal ECG
== END 2017-12-07 20:15 | disposition home or self-care (01) ==
LOC: EDBD 18:02 → EMR 19:36 → CANBEDREQ 19:41 → EMR 20:15
DX: R55 Syncope and collapse (principal); I11.0 Hypertensive heart disease with heart failure; I50.9 Heart failure, unspecified; N28.9 Disorder of kidney and ureter, unspecified; E11.9 Type 2 diabetes mellitus without complications; I48.91 Unspecified atrial fibrillation; Z86.73 Personal history of transient ischemic attack (TIA), and cerebral infarction without residual deficits
CPT/HCPCS: 36415; 71045; 80053; 82550; 82553; 83690; 83880; 84484; 85025; 85610; 85730; 93005; 96361; 96374; 99284

== ENCOUNTER 2017-12-08 00:30 | Inpatient (IN) | payer MEDICARE ==
[~2017-12-08] VITALS: Ht 175.3 cm; Wt 66.7 kg
[2017-12-08 01:00] VITALS: BP 184/77
[2017-12-08] MEDS ORDERED: Sodium Chloride 500ML 500 ML IV ONE (01:01)
[2017-12-08 02:14] LABS: BASOPHILS % (AUTO) 1.5 % (0.0-2.0); EOSINOPHILS % (AUTO) 2.6 % (0.0-3.0); HEMATOCRIT 33.4 % (42.0-52.0); HEMOGLOBIN 10.8 G/DL (14.2-18.0); LYMPHOCYTES % (AUTO) 18.2 % (20.0-45.0); MEAN CORPUSCULAR VOLUME 93 FL (80-99); MONOCYTES % (AUTO) 7.8 % (1.0-10.0); NEUTROPHILS % (AUTO) 69.9 % (45.0-75.0); PLATELET COUNT 249 K/UL (150-450); RED CELL DISTRIBUTION WIDTH 12.6 % (11.6-14.8); WHITE BLOOD COUNT 8.6 K/UL (4.8-10.8)
[2017-12-08] MEDS ORDERED: CARVEDILOL25 MG ORAL (02:50)
[2017-12-08] MEDS ORDERED: AMIODARONE HCL400 M1 ORAL (02:50)
[2017-12-08 03:00] VITALS: BP 168/73
[2017-12-08 03:25] LABS: ANION GAP 9 mmol/L (5-15); BLOOD UREA NITROGEN 28 mg/dL (7-18); CALCIUM 9.3 MG/DL (8.5-10.1); CARBON DIOXIDE 29 MMOL/L (21-32); CHLORIDE 101 MMOL/L (98-107); CREATININE 2.2 MG/DL (0.55-1.30); POTASSIUM 4.2 MMOL/L (3.5-5.1); SODIUM 139 MMOL/L (136-145)
--- NOTE | 2017-12-08 03:30 | Diagnostic Imaging Report ---
EXAM: CT Head Without Intravenous Contrast CLINICAL HISTORY: SYNCOPE TECHNIQUE: Axial computed tomography images of the head/brain without intravenous contrast. CTDI is 70 mGy and DLP is 1446 mGy-cm. One or more of the following dose reduction techniques were used: automated exposure control, adjustment of the mA and/or kV according to patient size, use of iterative reconstruction technique. COMPARISON: No relevant prior studies available. FINDINGS: Brain: Chronic white matter changes. No hemorrhage. Ventricles: Unremarkable. No ventriculomegaly. Bones/joints: Unremarkable. No acute fracture. Soft tissues: Unremarkable. Sinuses: Unremarkable as visualized. No acute sinusitis. Mastoid air cells: Unremarkable as visualized. No mastoid effusion. IMPRESSION: No acute findings.
[2017-12-08 03:43] LABS: ALANINE AMINOTRANSFERASE 23 U/L (12-78); ALBUMIN 3.9 G/DL (3.4-5.0); ALBUMIN/GLOBULIN RATIO 1.1 (1.0-2.7); ALKALINE PHOSPHATASE 53 U/L (46-116); ASPARTATE AMINO TRANSFERASE 21 U/L (15-37); BILIRUBIN,TOTAL 0.3 MG/DL (0.2-1.0); CKMB 1.8 NG/ML (0.0-3.6); CREATINE KINASE 89 U/L (26-308)
[2017-12-08 03:49] LABS: APPEARANCE,URINE SLIGHTLY CLOUDY; BILIRUBIN, URINE NEGATIVE (NEGATIVE); COLOR,URINE PALE YELLOW; GLUCOSE, URINE (UA) 1+ (NEGATIVE); KETONES,URINE NEGATIVE (NEGATIVE); LEUKOCYTE ESTERASE ,URINE 2+ (NEGATIVE); NITRITE,URINE NEGATIVE (NEGATIVE); PH,URINE 8 (4.5-8.0); PROTEIN,URINE 1+ (NEGATIVE); UROBILINOGEN,URINE NORMAL MG/DL (0.0-1.0)
--- NOTE | 2017-12-08 03:51 | Emergency Room Report ---
History of Present Illness General Chief Complaint: Syncope Source: Patient, Medical Record Present Illness HPI 72-year-old male presents ED status post syncopal episode. Patient was at home tonight watching TV when he passed out. Patient is here for evaluation. Patient was seen earlier last night also for syncopal episode while he was at the grocery store. At that time his blood pressure was low. Patient was seen by ER physician and was recommended to be admitted however patient declined asked to be discharged. Patient agrees to admission at this time since he passed out again. Denies any headache. Denies dizziness. Denies any chest pain or shortness of breath. No other aggravating relieving factors. Denies any other associated symptoms Allergies: Coded Allergies: FUROSEMIDE (Unverified Allergy, Unknown, 12/07/17) Patient History Past Medical History: DM, HTN, AFib, CVA/TIA Past Surgical History: none Pertinent Family History: none Social History: Denies: smoking, alcohol use, drug use Immunizations: UTD Reviewed Nursing Documentation: PMH: Agreed; PSxH: Agreed Nursing Documentation-PMH Past Medical History: No History, Except For Hx Cardiac Problems: Yes - A. FIB Hx Hypertension: Yes Hx Diabetes: Yes - Type 2 Hx Cancer: No Hx Gastrointestinal Problems: No Hx Cerebrovascular Accident: Yes - 2008 Review of Systems All Other Systems: negative except mentioned in HPI Physical Exam Vital Signs Date Time Temp Pulse Resp B/P (MAP) Pulse Ox O2 Delivery O2 Flow Rate FiO2 12/08/17 00:50 98.6 74 16 148/81 98 Room Air 98.6 Sp02 EP Interpretation: reviewed, normal General Appearance: no apparent distress, alert, GCS 15, non-toxic Head: normocephalic, atraumatic Eyes: bilateral eye normal inspection, bilateral eye PERRL ENT: hearing grossly normal, normal pharynx, no angioedema, normal voice Neck: full range of motion, supple/symm/no masses Respiratory: chest non-tender, lungs clear, normal breath sounds, speaking full sentences Cardiovascular #1: regular rate, rhythm, no edema Cardiovascular #2: 2+ carotid (R), 2+ carotid (L), 2+ radial (R), 2+ radial (L) , 2+ dorsalis pedis (R), 2+ dorsalis pedis (L) Gastrointestinal: normal bowel sounds, non tender, soft, non-distended, no guarding, no rebound Rectal: deferred Genitourinary: normal inspection, no CVA tenderness Musculoskeletal: back normal, gait/station normal, normal range of motion, non- tender Neurologic: alert, oriented x3, responsive, motor strength/tone normal, sensory intact, speech normal Psychiatric: judgement/insight normal, memory normal, mood/affect normal, no suicidal/homicidal ideation Reflexes: 3+ bicep (R), 3+ bicep (L), 3+ tricep (R), 3+ tricep (L), 3+ knee (R) , 3+ knee (L) Skin: normal color, no rash, warm/dry, well hydrated Lymphatic: no adenopathy Medical Decision Making Diagnostic Impression: Primary Impression: Syncope Qualified Codes: R55 - Syncope and collapse Additional Impressions: CHF (congestive heart failure) Qualified Codes: I50.9 - Heart failure, unspecified Renal insufficiency ER Course Hospital Course 72-year-old M presents ED s/p syncopal episode. Differential diagnoses include: [place]/unstable angina, arrythmia, dehydration, CVA/ TIA Clinical course Patient placed on stretcher. on helmet hat sweatband puncher. After initial history and physical I ordered labs, EKG, IVFs, CT Brain labs reviewed- no leukocytosis, hemoglobin/hematocrit ok, BUN/Cr elevated, trop negative, BNP elevated EKG- NSR, no acute ischemic changes interpreted by me CT brain-unremarkable Patient seen a few hours prior and had chest x-ray which was unremarkable Given age, history of CHF and repeat episodes of syncope I believe patient should be admitted. Patient agrees to admission at this time. Case discussed with Dr. Richard and he agreed to accept the patient to his service for further care and support I. I feel this is a highly complex case requiring extensive working including EKG/Rhythm strip, Xray/CT/US, Blood/urine lab work, repeat exams while in ED, and administration of strong opiates/narcotics for pain control, admission to hospital or close patient follow up. Diagnosis - syncope, CHF, renal insufficiency admitted to telemetry in serious condition Labs Test 12/08/17 01:35 12/08/17 03:40 White Blood Count 8.6 K/UL (4.8-10.8) Red Blood Count 3.60 M/UL (4.70-6.10) Hemoglobin 10.8 G/DL (14.2-18.0) Hematocrit 33.4 % (42.0-52.0) Mean Corpuscular Volume 93 FL (80-99) Mean Corpuscular Hemoglobin 29.8 PG (27.0-31.0) Mean Corpuscular Hemoglobin Concent 32.2 G/DL (32.0-36.0) Red Cell Distribution Width 12.6 % (11.6-14.8) Platelet Count 249 K/UL (150-450) Mean Platelet Volume 9.4 FL (6.5-10.1) Neutrophils (%) (Auto) 69.9 % (45.0-75.0) Lymphocytes (%) (Auto) 18.2 % (20.0-45.0) Monocytes (%) (Auto) 7.8 % (1.0-10.0) Eosinophils (%) (Auto) 2.6 % (0.0-3.0) Basophils (%) (Auto) 1.5 % (0.0-2.0) Sodium Level 139 MMOL/L (136-145) Potassium Level 4.2 MMOL/L (3.5-5.1) Chloride Level 101 MMOL/L (98-107) Carbon Dioxide Level 29 MMOL/L (21-32) Anion Gap 9 mmol/L (5-15) Blood Urea Nitrogen 28 mg/dL (7-18) Creatinine 2.2 MG/DL (0.55-1.30) Estimat Glomerular Filtration Rate mL/min (>60) Glucose Level 222 MG/DL (74-106) Calcium Level 9.3 MG/DL (8.5-10.1) Total Bilirubin 0.3 MG/DL (0.2-1.0) Aspartate Amino Transf (AST/SGOT) 21 U/L (15-37) Alanine Aminotransferase (ALT/SGPT) 23 U/L (12-78) Alkaline Phosphatase 53 U/L (46-116) Total Creatine Kinase 89 U/L (26-308) Creatine Kinase MB 1.8 NG/ML (0.0-3.6) Creatine Kinase MB Relative Index 2.0 Troponin I 0.000 ng/mL (0.000-0.056) Pro-B-Type Natriuretic Peptide 1313 pg/mL (0-125) Total Protein 7.5 G/DL (6.4-8.2) Albumin 3.9 G/DL (3.4-5.0) Globulin 3.6 g/dL Albumin/Globulin Ratio 1.1 (1.0-2.7) EKG Diagnostic Results Rate: normal Rhythm: NSR ST Segments: no acute changes ASA given to the pt in ED: No Rhythm Strip Diag. Results EP Interpretation: yes Rhythm: NSR, no PVC's, no ectopy CT/MRI/US Diagnostic Results CT/MRI/US Diagnostic Results : Imaging Test Ordered: CT Head Impression no acute process Last Vital Signs Date Time Temp Pulse Resp B/P (MAP) Pulse Ox O2 Delivery O2 Flow Rate FiO2 12/08/17 01:00 65 13 184/77 100 Room Air 12/08/17 00:50 98.6 98.6 Status: improved Disposition: ADMITTED INPATIENT Condition: Serious Referrals: NOT CHOSEN IPA/,REFERRING (PCP) Tre Ivy MD December 08, 2017 03:51
[2017-12-08 04:13] VITALS: BP 123/93
[2017-12-08] MEDS: Carvedilol 25mg Tab ORAL SCH ×2 (05:57→21:08)
[2017-12-08] MEDS: NovoLOG Insulin Flexpen SUBQ SCH ×4 (06:30→21:00)
[2017-12-08 08:00] VITALS: BP 110/58
[2017-12-08] MEDS: Amiodarone 200mg tab ORAL SCH ×2 (08:28→21:00)
[2017-12-08] MEDS: Aspirin Baby 81mg ORAL SCH (08:28)
[2017-12-08 09:37] LABS: BASOPHILS % (AUTO) 1.7 % (0.0-2.0); HEMATOCRIT 28.9 % (42.0-52.0); HEMOGLOBIN 9.3 G/DL (14.2-18.0); LYMPHOCYTES % (AUTO) 18.9 % (20.0-45.0); MEAN CORPUSCULAR VOLUME 92 FL (80-99); MONOCYTES % (AUTO) 7.8 % (1.0-10.0); NEUTROPHILS % (AUTO) 68.6 % (45.0-75.0); PLATELET COUNT 190 K/UL (150-450); RED BLOOD COUNT 3.13 M/UL (4.70-6.10); RED CELL DISTRIBUTION WIDTH 12.5 % (11.6-14.8); WHITE BLOOD COUNT 6.6 K/UL (4.8-10.8)
[2017-12-08 09:49] LABS: ALANINE AMINOTRANSFERASE 17 U/L (12-78); ALKALINE PHOSPHATASE 47 U/L (46-116); ANION GAP 9 mmol/L (5-15); ASPARTATE AMINO TRANSFERASE 13 U/L (15-37); BILIRUBIN,TOTAL 0.4 MG/DL (0.2-1.0); BLOOD UREA NITROGEN 24 mg/dL (7-18); CALCIUM 8.5 MG/DL (8.5-10.1); CARBON DIOXIDE 30 MMOL/L (21-32); CHLORIDE 103 MMOL/L (98-107); CREATININE 2.1 MG/DL (0.55-1.30); POTASSIUM 3.4 MMOL/L (3.5-5.1); SODIUM 141 MMOL/L (136-145)
[2017-12-08 12:00] VITALS: BP 151/76
--- NOTE | 2017-12-08 17:18 | History and Physical ---
History of Present Illness General Date patient seen: December 08, 2017 Time patient seen: 17:18 Reason for Hospitalization: Syncope Present Illness HPI 72 y/o male with a PMH of CHF, renal failure, CVA, HTN, and history of syncopal episodes that presented to the ED for a syncopal episode. Patient states that he had had a syncopal episode while at the grocery store after checking his blood pressure, which was systolic 70s. Patient was brought into the ED by EMS. Patient was noted to have low blood sugar and was given D50. Patient's blood sugar and blood pressure stabilized and patient refused to be admitted at the time. Patient went home and stated that he had another syncopal episode while he was watching TV on his couch. Thereafter, patient returned to the ED. CT head was negative and EKG was NSR. Patient was further admitted for syncopal episode. Denies any chest pain, sob, f/c, n/v, abdominal pain, focal deficits. Allergies: Coded Allergies: FUROSEMIDE (Unverified Allergy, Unknown, 12/07/17) Medication History Scheduled Amiodarone Hcl* (Amiodarone Hcl*), 200 MG ORAL EVERY 12 HOURS, (Reported) Aspirin* (Aspir 81*), 81 MG ORAL DAILY, (Reported) Atenolol* (Tenormin*), 50 MG ORAL BID, (Reported) Carvedilol* (Carvedilol*), 25 MG ORAL EVERY 12 HOURS, (Reported) Clopidogrel Bisulfate* (Plavix*), 75 MG ORAL DAILY, (Reported) Clopidogrel* (Clopidogrel*), 75 MG ORAL DAILY, (Reported) Felodipine (Felodipine Er), 5 MG PO DAILY, (Reported) Glipizide* (Glipizide*), 5 MG ORAL BIDAC, (Reported) Hydrochlorothiazide* (Hydrochlorothiazide*), 25 MG ORAL DAILY, (Reported) Lisinopril* (Prinivil*), 20 MG ORAL BID, (Reported) Lisinopril* (Lisinopril*), 20 MG ORAL DAILY, (Reported) Lovastatin (Lovastatin), 40 MG ORAL BEDTIME, (Reported) Metformin Hcl* (Metformin Hcl*), 1,000 MG ORAL BID, (Reported) Metformin Hcl* (Metformin Hcl*), 1,000 MG ORAL BID, (Reported) Potassium Chloride (Potassium Chloride), 40 MEQ PO BID, (Reported) Scheduled PRN Acetaminophen With Codeine (T#3) (Tylenol #3 Tab*), 1 TAB ORAL Q6HR PRN for For Pain Patient History History Provided By: Patient Healthcare decision maker Resuscitation status Full Code Advanced Directive on File Review of Systems All Other Systems: negative except mentioned in HPI Physical Exam General Appearance: no apparent distress, alert HEENT: normocephalic, atraumatic, PERRL Neck: non-tender, normal alignment, supple Respiratory/Chest: chest wall non-tender, lungs clear, normal breath sounds Cardiovascular/Chest: normal peripheral pulses, normal rate, regular rhythm Abdomen: normal bowel sounds, non tender, soft Skin Exam: normal pigmentation, warm/dry 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, no motor/sensory deficits, alert, oriented x 3 Last 24 Hour Vital Signs Date Time Temp Pulse Resp B/P (MAP) Pulse Ox O2 Delivery O2 Flow Rate FiO2 12/08/17 12:00 60 12/08/17 12:00 97.7 63 18 151/76 98 Room Air 97.7 12/08/17 08:31 72 113/58 12/08/17 08:00 97.5 72 18 110/58 98 Room Air 97.5 12/08/17 08:00 71 12/08/17 05:57 67 160/83 12/08/17 04:53 69 12/08/17 04:44 98.6 67 14 123/93 99 Room Air 98.6 12/08/17 04:13 67 14 123/93 99 Room Air 12/08/17 03:00 66 16 168/73 99 Room Air 12/08/17 01:00 65 13 184/77 100 Room Air 12/08/17 00:50 98.6 74 16 148/81 98 Room Air 98.6 Intake and Output 12/07/17 12/08/17 19:00 07:00 Intake Total 0 ml Balance 0 ml Intake Oral 0 ml # Voids 4 Laboratory Tests Test 12/08/17 01:35 12/08/17 03:40 12/08/17 09:23 White Blood Count 8.6 K/UL (4.8-10.8) 6.6 K/UL (4.8-10.8) Red Blood Count 3.60 M/UL (4.70-6.10) L 3.13 M/UL (4.70-6.10) L Hemoglobin 10.8 G/DL (14.2-18.0) L 9.3 G/DL (14.2-18.0) L Hematocrit 33.4 % (42.0-52.0) L 28.9 % (42.0-52.0) L Mean Corpuscular Volume 93 FL (80-99) 92 FL (80-99) Mean Corpuscular Hemoglobin 29.8 PG (27.0-31.0) 29.8 PG (27.0-31.0) Mean Corpuscular Hemoglobin Concent 32.2 G/DL (32.0-36.0) 32.3 G/DL (32.0-36.0) Red Cell Distribution Width 12.6 % (11.6-14.8) 12.5 % (11.6-14.8) Platelet Count 249 K/UL (150-450) 190 K/UL (150-450) Mean Platelet Volume 9.4 FL (6.5-10.1) 8.3 FL (6.5-10.1) Neutrophils (%) (Auto) 69.9 % (45.0-75.0) 68.6 % (45.0-75.0) Lymphocytes (%) (Auto) 18.2 % (20.0-45.0) L 18.9 % (20.0-45.0) L Monocytes (%) (Auto) 7.8 % (1.0-10.0) 7.8 % (1.0-10.0) Eosinophils (%) (Auto) 2.6 % (0.0-3.0) 3.0 % (0.0-3.0) Basophils (%) (Auto) 1.5 % (0.0-2.0) 1.7 % (0.0-2.0) Sodium Level 139 MMOL/L (136-145) 141 MMOL/L (136-145) Potassium Level 4.2 MMOL/L (3.5-5.1) 3.4 MMOL/L (3.5-5.1) L Chloride Level 101 MMOL/L (98-107) 103 MMOL/L (98-107) Carbon Dioxide Level 29 MMOL/L (21-32) 30 MMOL/L (21-32) Anion Gap 9 mmol/L (5-15) 9 mmol/L (5-15) Blood Urea Nitrogen 28 mg/dL (7-18) H 24 mg/dL (7-18) H Creatinine 2.2 MG/DL (0.55-1.30) H 2.1 MG/DL (0.55-1.30) H Estimat Glomerular Filtration Rate mL/min (>60) mL/min (>60) Glucose Level 222 MG/DL (74-106) H 263 MG/DL (74-106) H Calcium Level 9.3 MG/DL (8.5-10.1) 8.5 MG/DL (8.5-10.1) Total Bilirubin 0.3 MG/DL (0.2-1.0) 0.4 MG/DL (0.2-1.0) Aspartate Amino Transf (AST/SGOT) 21 U/L (15-37) 13 U/L (15-37) L Alanine Aminotransferase (ALT/SGPT) 23 U/L (12-78) 17 U/L (12-78) Alkaline Phosphatase 53 U/L (46-116) 47 U/L (46-116) Total Creatine Kinase 89 U/L (26-308) Creatine Kinase MB 1.8 NG/ML (0.0-3.6) Creatine Kinase MB Relative Index 2.0 Troponin I 0.000 ng/mL (0.000-0.056) Pro-B-Type Natriuretic Peptide 1313 pg/mL (0-125) H Total Protein 7.5 G/DL (6.4-8.2) 6.0 G/DL (6.4-8.2) L Albumin 3.9 G/DL (3.4-5.0) 3.0 G/DL (3.4-5.0) L Globulin 3.6 g/dL 3.0 g/dL Albumin/Globulin Ratio 1.1 (1.0-2.7) 1.0 (1.0-2.7) Urine Color Pale yellow Urine Appearance Slightly cloudy Urine pH 8 (4.5-8.0) Urine Specific [place] 1.010 (1.005-1.035) Urine Protein 1+ (NEGATIVE) H Urine Glucose (UA) 1+ (NEGATIVE) H Urine Ketones Negative (NEGATIVE) Urine Occult Blood 1+ (NEGATIVE) H Urine Nitrite Negative (NEGATIVE) Urine Bilirubin Negative (NEGATIVE) Urine Urobilinogen Normal MG/DL (0.0-1.0) Urine Leukocyte Esterase 2+ (NEGATIVE) H Urine RBC 2-4 /HPF (0 - 0) H Urine WBC 60-80 /HPF (0 - 0) H Urine Squamous Epithelial Cells Few /LPF (NONE/OCC) Urine Bacteria Moderate /HPF (NONE) H Hemoglobin A1c 7.2 % (4.3-6.0) H Magnesium Level 1.4 MG/DL (1.8-2.4) L Height (Feet): 5 Height (Inches): 9.00 Weight (Pounds): 147 Medications Current Medications Medications (Trade) Dose Ordered Sig/Kim Route PRN Reason Start Time Stop Time Status Last Admin Dose Admin Acetaminophen (Tylenol) 650 mg Q6H PRN ORAL Mild Pain/Temp > 100.5 12/08/17 05:00 01/07/18 04:59 Amiodarone HCl (Cordarone) 200 mg EVERY 12 HOURS ORAL 12/08/17 09:00 01/07/18 08:59 12/08/17 08:28 Amlodipine Besylate (Norvasc) 5 mg DAILY ORAL 12/08/17 09:00 01/07/18 08:59 12/08/17 08:31 Aspirin (ASA) 81 mg DAILY ORAL 12/08/17 09:00 01/07/18 08:59 12/08/17 08:28 Atorvastatin Calcium (Lipitor) 10 mg DAILY ORAL 12/08/17 09:00 01/07/18 08:59 12/08/17 08:28 Carvedilol (Coreg) 25 mg EVERY 12 HOURS ORAL 12/08/17 05:00 01/07/18 04:59 12/08/17 05:57 Clopidogrel Bisulfate (Plavix) 75 mg DAILY ORAL 12/08/17 09:00 01/07/18 08:59 12/08/17 08:29 Dextrose (Dextrose 50%) 25 ml STAT PRN IV Hypoglycemia 12/08/17 05:00 01/07/18 04:59 Dextrose (Dextrose 50%) 50 ml STAT PRN IV Hypoglycemia 12/08/17 05:00 01/07/18 04:59 Hydrochlorothiazide (Hydrodiuril) 25 mg DAILY ORAL 12/08/17 09:00 01/07/18 08:59 Insulin Aspart (NovoLOG) BEFORE MEALS AND HS SUBQ 12/08/17 06:30 01/07/18 06:29 12/08/17 11:36 Assessment/Plan Problem List: (1) Hypertension ICD Codes: I10 - Essential (primary) hypertension SNOMED: 54695106 (2) Diabetes ICD Codes: E11.9 - Type 2 diabetes mellitus without complications SNOMED: 21943095 (3) CHF (congestive heart failure) ICD Codes: I50.9 - Heart failure, unspecified SNOMED: 78529765 Qualifiers: Qualified Codes: I50.9 - Heart failure, unspecified (4) Renal insufficiency ICD Codes: N28.9 - Disorder of kidney and ureter, unspecified SNOMED: 046424759, 715343572 (5) Syncope ICD Codes: R55 - Syncope and collapse SNOMED: 481539693 Qualifiers: Qualified Codes: R55 - Syncope and collapse (6) Rapid atrial fibrillation ICD Codes: I48.91 - Unspecified atrial fibrillation SNOMED: 051380043 (7) History of CVA (cerebrovascular accident) ICD Codes: Z86.73 - Personal history of transient ischemic attack (TIA), and cerebral infarction without residual deficits SNOMED: 332120896 Status: stable Assessment/Plan Admit to tele Cardiology consulted EKG NSR check TTE, carotids check orthostatics Continue home meds, including lantus and CLEMENCIA Continue BP meds CT head negative. Consider MRI brain. Neurology unavailable for the weekend. Will consult neurology in AM. Pain control and supportive care DVT Prophylaxis: SCD, HSQ Code Status: Full Hospital Classification Declaration: Based on this initial evaluation, and depending on the patient's clinical course, I anticipate that this patient will require hospitalization for 2-3 days for syncopal workup and close respiratory/ hemodynamic monitoring. Disposition: Once the patient is stable to leave the hospital, I anticipate the patient will likely be discharged to the following environment: home with HH vs SNF I spent 78 minutes on this patient's case, and 44 minutes were dedicated to counseling and/or care coordination. Discussed with patient/family, nursing staff, SW/CM, cardiology regarding clinical status, treatment course, and disposition planning. Time of note may not reflect time of encounter. Flo,Ifeoma PARTS AND SERVICE MANAGER December 08, 2017 17:18
--- NOTE | 2017-12-08 18:39 | General Progress Note ---
Subjective Date patient seen: December 08, 2017 Allergies: Coded Allergies: FUROSEMIDE (Unverified Allergy, Unknown, 12/07/17) Objective Last 24 Hour Vital Signs Date Time Temp Pulse Resp B/P (MAP) Pulse Ox O2 Delivery O2 Flow Rate FiO2 12/08/17 16:00 66 12/08/17 12:00 60 12/08/17 12:00 97.7 63 18 151/76 98 Room Air 97.7 12/08/17 08:31 72 113/58 12/08/17 08:00 97.5 72 18 110/58 98 Room Air 97.5 12/08/17 08:00 71 12/08/17 05:57 67 160/83 12/08/17 04:53 69 12/08/17 04:44 98.6 67 14 123/93 99 Room Air 98.6 12/08/17 04:13 67 14 123/93 99 Room Air 12/08/17 03:00 66 16 168/73 99 Room Air 12/08/17 01:00 65 13 184/77 100 Room Air 12/08/17 00:50 98.6 74 16 148/81 98 Room Air 98.6 Intake and Output 12/07/17 12/08/17 19:00 07:00 Intake Total 0 ml Balance 0 ml Intake Oral 0 ml # Voids 4 Laboratory Tests 12/08/17 01:35: White Blood Count 8.6, Red Blood Count 3.60L, Hemoglobin 10.8L, Hematocrit 33.4L , Mean Corpuscular Volume 93, Mean Corpuscular Hemoglobin 29.8, Mean Corpuscular Hemoglobin Concent 32.2, Red Cell Distribution Width 12.6, Platelet Count 249, Mean Platelet Volume 9.4, Neutrophils (%) (Auto) 69.9, Lymphocytes (% ) (Auto) 18.2L, Monocytes (%) (Auto) 7.8, Eosinophils (%) (Auto) 2.6, Basophils (%) (Auto) 1.5, Sodium Level 139, Potassium Level 4.2, Chloride Level 101, Carbon Dioxide Level 29, Anion Gap 9, Blood Urea Nitrogen 28H, Creatinine 2.2H, Estimat Glomerular Filtration Rate , Glucose Level 222H, Calcium Level 9.3, Total Bilirubin 0.3, Aspartate Amino Transf (AST/SGOT) 21, Alanine Aminotransferase (ALT/SGPT) 23, Alkaline Phosphatase 53, Total Creatine Kinase 89, Creatine Kinase MB 1.8, Creatine Kinase MB Relative Index 2.0, Troponin I 0.000, Pro-B-Type Natriuretic Peptide 1313H, Total Protein 7.5, Albumin 3.9, Globulin 3.6, Albumin/Globulin Ratio 1.1 12/08/17 03:40: Urine Color Pale yellow, Urine Appearance Slightly cloudy, Urine pH 8, Urine Specific [place] 1.010, Urine Protein 1+H, Urine Glucose (UA) 1+H, Urine Ketones Negative, Urine Occult Blood 1+H, Urine Nitrite Negative, Urine Bilirubin Negative, Urine Urobilinogen Normal, Urine Leukocyte Esterase 2+H, Urine RBC 2-4H, Urine WBC 60-80H, Urine Squamous Epithelial Cells Few, Urine Bacteria ModerateH 12/08/17 09:23: White Blood Count 6.6, Red Blood Count 3.13L, Hemoglobin 9.3L, Hematocrit 28.9L , Mean Corpuscular Volume 92, Mean Corpuscular Hemoglobin 29.8, Mean Corpuscular Hemoglobin Concent 32.3, Red Cell Distribution Width 12.5, Platelet Count 190, Mean Platelet Volume 8.3, Neutrophils (%) (Auto) 68.6, Lymphocytes (% ) (Auto) 18.9L, Monocytes (%) (Auto) 7.8, Eosinophils (%) (Auto) 3.0, Basophils (%) (Auto) 1.7, Sodium Level 141, Potassium Level 3.4L, Chloride Level 103, Carbon Dioxide Level 30, Anion Gap 9, Blood Urea Nitrogen 24H, Creatinine 2.1H, Estimat Glomerular Filtration Rate , Glucose Level 263H, Calcium Level 8.5, Total Bilirubin 0.4, Aspartate Amino Transf (AST/SGOT) 13L, Alanine Aminotransferase (ALT/SGPT) 17, Alkaline Phosphatase 47, Total Protein 6.0L, Albumin 3.0L, Globulin 3.0, Albumin/Globulin Ratio 1.0, Hemoglobin A1c 7.2H, Magnesium Level 1.4L Height (Feet): 5 Height (Inches): 9.00 Weight (Pounds): 147 Raul Contreras MD December 08, 2017 18:39
[2017-12-08 20:00] VITALS: BP 169/86
[2017-12-08] MEDS ORDERED: HydrALAZINE 10mg Tab ORAL PRN (22:15)
[2017-12-09] VITALS: BP 146/79
[2017-12-09 04:00] VITALS: BP 126/56
[2017-12-09] MEDS: NovoLOG Insulin Flexpen SUBQ SCH ×4 (06:49→21:07)
[2017-12-09 08:00] VITALS: BP 130/68
[2017-12-09] MEDS: cefTRIAXone 1 GM in D5W 110 ML IVPB SCH (08:47)
[2017-12-09] MEDS: Aspirin Baby 81mg ORAL SCH (08:47)
[2017-12-09] MEDS: Amiodarone 200mg tab ORAL SCH (08:49)
[2017-12-09] MEDS: Carvedilol 25mg Tab ORAL SCH ×2 (09:00→21:04)
--- NOTE | 2017-12-09 11:22 | Consultation ---
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 Since 2013 he has had about a dozen episodes of LOC. He suddenly passes out for a few seconds and when he wakes up the mind is relatively clear. He was in a supermarket on 12/07/17 and had an episode of fainting there and then had another episode while he was at home sitting up on a sofa. Recently he has also felt off balance. ON EXAM: Trace right VII central. Globally diminished DTRs with loss of ankle jerks. Minimally wide based stance and gait. IMPRESSION: Multiple episodes of syncope. Etiology of syncope - possibly autonomic. UTI could have also contributed. REC: W/U for treatable causes of syncope. Cardiac monitoring Carotid duplex. Consider tilt table test. Evert Jean Baptiste M.D., M.S.P.H. EVERT JEAN BAPTISTE December 09, 2017 11:22
[2017-12-09 12:00] VITALS: BP 130/61
--- NOTE | 2017-12-09 12:04 | General Progress Note ---
Assessment/Plan Problem List: (1) Hypertension ICD Codes: I10 - Essential (primary) hypertension SNOMED: 70078007 (2) Diabetes ICD Codes: E11.9 - Type 2 diabetes mellitus without complications SNOMED: 63795744 (3) CHF (congestive heart failure) ICD Codes: I50.9 - Heart failure, unspecified SNOMED: 53082404 Qualifiers: Qualified Codes: I50.9 - Heart failure, unspecified (4) Renal insufficiency ICD Codes: N28.9 - Disorder of kidney and ureter, unspecified SNOMED: 809113967, 356868584 (5) Syncope ICD Codes: R55 - Syncope and collapse SNOMED: 972501351 Qualifiers: Qualified Codes: R55 - Syncope and collapse (6) Rapid atrial fibrillation ICD Codes: I48.91 - Unspecified atrial fibrillation SNOMED: 038281393 (7) History of CVA (cerebrovascular accident) ICD Codes: Z86.73 - Personal history of transient ischemic attack (TIA), and cerebral infarction without residual deficits SNOMED: 336853206 (8) Hypokalemia ICD Codes: E87.6 - Hypokalemia SNOMED: 78020794 (9) Hypomagnesemia ICD Codes: E83.42 - Hypomagnesemia SNOMED: 918198423 (10) UTI (urinary tract infection) ICD Codes: N39.0 - Urinary tract infection, site not specified SNOMED: 38830141 (11) QT prolongation ICD Codes: R94.31 - Abnormal electrocardiogram [ECG] [EKG] SNOMED: 797480636 Status: stable, progressing Assessment/Plan Cardiology and neurology consulted, appreciate rec's EKG NSR TTE 60-65%. carotid u/s pending check orthostatics - negative Check renal ultrasound Trend Cr IV CTX for UTI. F/u urine cx.- GNB replete lytes prn. monitor bmp and mg check a1c and lipid panel Continue home meds, including lantus and CLEMENCIA Continue BP meds CT head negative. Pain control and supportive care Patient's syncopal episodes may be 2/2 infection vs. autonomic dysfunction given his history of diabetes. Will continues to r/o other etiologies for syncope. Will continue to monitor. DVT Prophylaxis: SCD, HSQ Code Status: Full Hospital Classification Declaration: Based on this initial evaluation, and depending on the patient's clinical course, I anticipate that this patient will require hospitalization for 2-3 days for syncopal workup and close respiratory/ hemodynamic monitoring. Disposition: Once the patient is stable to leave the hospital, I anticipate the patient will likely be discharged to the following environment: home with HH vs SNF I spent 38 minutes on this patient's case, and 24 minutes were dedicated to counseling and/or care coordination. Discussed with patient/family, nursing staff, SW/CM, cardiology and neurology regarding clinical status, treatment course, and disposition planning. Time of note may not reflect time of encounter. Subjective Date patient seen: December 09, 2017 Time patient seen: 11:57 Allergies: Coded Allergies: FUROSEMIDE (Unverified Allergy, Unknown, 12/07/17) Subjective - no acute events overnight - Cr stable at 2 - TTE showing 60-65% EF with no wall motion abnormality - EKG with QT prolongation at 458 but otherwise NSR. patient has been NSR on tele since hospital admission - seen by neurology - denies n/v, abdominal pain, f/c, cp, sob Objective Last 24 Hour Vital Signs Date Time Temp Pulse Resp B/P (MAP) Pulse Ox O2 Delivery O2 Flow Rate FiO2 12/09/17 09:00 58 130/68 12/09/17 08:49 62 130/68 12/09/17 08:00 97.2 62 19 130/68 99 Room Air 97.2 12/09/17 08:00 62 12/09/17 06:40 77 12/09/17 06:35 63 12/09/17 06:30 63 12/09/17 04:00 61 12/09/17 04:00 97.3 100 24 126/56 100 Room Air 97.3 12/09/17 00:00 61 12/09/17 00:00 97.5 65 20 146/79 98 Room Air 97.5 12/08/17 21:08 67 169/86 12/08/17 20:00 65 12/08/17 20:00 97.0 67 21 169/86 98 Room Air 97.0 12/08/17 18:10 73 12/08/17 18:05 72 12/08/17 18:00 68 12/08/17 16:00 60 12/08/17 16:00 66 12/08/17 12:00 60 12/08/17 12:00 97.7 63 18 151/76 98 Room Air 97.7 Intake and Output 12/08/17 12/09/17 19:00 07:00 Intake Total 600 ml Balance 600 ml Intake Oral 600 ml # Voids 3 2 Height (Feet): 5 Height (Inches): 9.00 Weight (Pounds): 147 General Appearance: no apparent distress, alert EENT: PERRL/EOMI, normal ENT inspection Neck: non-tender, normal alignment, supple Cardiovascular: normal peripheral pulses, normal rate, regular rhythm Respiratory/Chest: chest wall non-tender, lungs clear, normal breath sounds Abdomen: normal bowel sounds, non tender, soft Extremities: normal range of motion, non-tender 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
[2017-12-09 12:26] LABS: ANION GAP 9 mmol/L (5-15); BLOOD UREA NITROGEN 19 mg/dL (7-18); CALCIUM 8.7 MG/DL (8.5-10.1); CARBON DIOXIDE 29 MMOL/L (21-32); CHLORIDE 103 MMOL/L (98-107); CREATININE 1.8 MG/DL (0.55-1.30); POTASSIUM 3.5 MMOL/L (3.5-5.1); SODIUM 141 MMOL/L (136-145)
[2017-12-09 12:31] LABS: BASOPHILS % (AUTO) 1.5 % (0.0-2.0); EOSINOPHILS % (AUTO) 3.4 % (0.0-3.0); HEMATOCRIT 30.5 % (42.0-52.0); HEMOGLOBIN 10.1 G/DL (14.2-18.0); LYMPHOCYTES % (AUTO) 18.9 % (20.0-45.0); MEAN CORPUSCULAR VOLUME 92 FL (80-99); MONOCYTES % (AUTO) 7.4 % (1.0-10.0); NEUTROPHILS % (AUTO) 68.9 % (45.0-75.0); PLATELET COUNT 222 K/UL (150-450); RED BLOOD COUNT 3.31 M/UL (4.70-6.10); RED CELL DISTRIBUTION WIDTH 12.7 % (11.6-14.8)
[2017-12-09 12:39] LABS: ALANINE AMINOTRANSFERASE 18 U/L (12-78); ALBUMIN 3.3 G/DL (3.4-5.0); ALKALINE PHOSPHATASE 51 U/L (46-116); ASPARTATE AMINO TRANSFERASE 14 U/L (15-37); BILIRUBIN,TOTAL 0.3 MG/DL (0.2-1.0)
--- NOTE | 2017-12-09 13:20 | Cardiology Report ---
APPROVED REPORT EXAM: Two-dimensional and M-mode echocardiogram with Doppler and color Doppler. INDICATION Syncope M-Mode DIMENSIONS IVSd0.7 (0.7-1.1cm)Left Atrium (MM)3.7 (1.6-4.0cm) LVDd4.7 (3.5-5.6cm)Aortic Root2.5 (2.0-3.7cm) PWd0.9 (0.7-1.1cm)Aortic Cusp Exc.2.0 (1.5-2.0cm) LVDs3.1 (2.5-4.0cm) PWs0.8 cm Normal left ventricular chamber size, systolic function and wall motion. Left ventricular ejection fraction estimated to be 60-65%. No evidence of left ventricular hypertrophy. Small posterior pericardial effusion. All other cardiac chamber sizes are within normal limits. Focal aortic valve sclerosis with adequate cusp excursion. Thickened mitral valve leaflets with normal excursion. Mild mitral annulus and aortic root calcification. Pulmonic valve not well visualized. Normal tricuspid valve structure. IVC is not obtainable. A color flow and spectral Doppler study was performed and revealed: No aortic regurgitation. Trace mitral regurgitation. Mitral diastolic velocities suggest reduced left ventricular relaxation c/w diastolic dysfunction grade 1. No tricuspid regurgitation.
--- NOTE | 2017-12-09 13:51 | Cardiology Report ---
APPROVED REPORT EKG Measurement Heart [id number] Normal sinus rhythm Nonspecific ST abnormality Prolonged QT Abnormal ECG
--- NOTE | 2017-12-09 14:59 | Cardiac Electrophysiology PN ---
Subjective Subjective [id number] Objective Last 24 Hour Vital Signs Date Time Temp Pulse Resp B/P (MAP) Pulse Ox O2 Delivery O2 Flow Rate FiO2 12/09/17 12:10 72 12/09/17 12:05 70 12/09/17 12:00 97.7 68 19 130/61 99 Room Air 97.7 12/09/17 12:00 157 12/09/17 09:00 58 130/68 12/09/17 08:49 62 130/68 12/09/17 08:00 97.2 62 19 130/68 99 Room Air 97.2 12/09/17 08:00 62 12/09/17 06:40 77 12/09/17 06:35 63 12/09/17 06:30 63 12/09/17 04:00 61 12/09/17 04:00 97.3 100 24 126/56 100 Room Air 97.3 12/09/17 00:00 61 12/09/17 00:00 97.5 65 20 146/79 98 Room Air 97.5 12/08/17 21:08 67 169/86 12/08/17 20:00 65 12/08/17 20:00 97.0 67 21 169/86 98 Room Air 97.0 12/08/17 18:10 73 12/08/17 18:05 72 12/08/17 18:00 68 12/08/17 16:00 60 12/08/17 16:00 66 Intake and Output 12/08/17 12/09/17 19:00 07:00 Intake Total 600 ml Balance 600 ml Intake Oral 600 ml # Voids 3 2 Laboratory Tests Test 12/09/17 11:30 White Blood Count 7.0 K/UL (4.8-10.8) Red Blood Count 3.31 M/UL (4.70-6.10) L Hemoglobin 10.1 G/DL (14.2-18.0) L Hematocrit 30.5 % (42.0-52.0) L Mean Corpuscular Volume 92 FL (80-99) Mean Corpuscular Hemoglobin 30.5 PG (27.0-31.0) Mean Corpuscular Hemoglobin Concent 33.1 G/DL (32.0-36.0) Red Cell Distribution Width 12.7 % (11.6-14.8) Platelet Count 222 K/UL (150-450) Mean Platelet Volume 9.6 FL (6.5-10.1) Neutrophils (%) (Auto) 68.9 % (45.0-75.0) Lymphocytes (%) (Auto) 18.9 % (20.0-45.0) L Monocytes (%) (Auto) 7.4 % (1.0-10.0) Eosinophils (%) (Auto) 3.4 % (0.0-3.0) H Basophils (%) (Auto) 1.5 % (0.0-2.0) Erythrocyte Sedimentation Rate 50 MM/HR (0-20) H Sodium Level 141 MMOL/L (136-145) Potassium Level 3.5 MMOL/L (3.5-5.1) Chloride Level 103 MMOL/L (98-107) Carbon Dioxide Level 29 MMOL/L (21-32) Anion Gap 9 mmol/L (5-15) Blood Urea Nitrogen 19 mg/dL (7-18) H Creatinine 1.8 MG/DL (0.55-1.30) H Estimat Glomerular Filtration Rate mL/min (>60) Glucose Level 193 MG/DL (74-106) H Hemoglobin A1c 7.4 % (4.3-6.0) H Calcium Level 8.7 MG/DL (8.5-10.1) Magnesium Level 1.9 MG/DL (1.8-2.4) Total Bilirubin 0.3 MG/DL (0.2-1.0) Aspartate Amino Transf (AST/SGOT) 14 U/L (15-37) L Alanine Aminotransferase (ALT/SGPT) 18 U/L (12-78) Alkaline Phosphatase 51 U/L (46-116) Total Protein 6.7 G/DL (6.4-8.2) Total Protein (PEP) Pending Albumin 3.3 G/DL (3.4-5.0) L Albumin (PEP) Pending Globulin 3.4 g/dL Globulin (PEP) Pending Albumin/Globulin Ratio Pending Cpmcc-3-Ozkmpavmn Pending Ufhms-3-Uwvroiicg Pending Beta Globulins Pending Beta Gamma Globulin Pending PEP Abnormal Protein Bands Pending Protein Electrophoresis Interpret Pending Thyroid Stimulating Hormone (TSH) 0.514 uiU/mL (0.358-3.740) Rapid Plasma Reagin Pending Microbiology Date/Time Source Procedure Growth Status 12/08/17 03:40 Urine,Clean Catch Urine Culture - Preliminary Gram Negative Bacillus 1 Resulted Abiodun Sands MD December 09, 2017 14:59
--- NOTE | 2017-12-09 15:39 | Diagnostic Imaging Report ---
Indication:Elevated Bun and Creatinine. Technique: Grayscale and duplex Doppler imaging of the kidneys performed. Comparison: None Findings: The right kidney is not seen. The left kidney measures 13.5 cm in length and demonstrates some fullness of the renal pelvis without neetu hydronephrosis. If there is concern for obstruction consider noncontrast CT for further evaluation. Urinary bladder is unremarkable in appearance. Subcentimeter cysts are noted in the left kidney. The IVC is unremarkable. IMPRESSION: Nonvisualization of the right kidney. Renal cysts on the left.
[2017-12-09 16:00] VITALS: BP 127/58
--- NOTE | 2017-12-09 16:15 | Consultation ---
DATE OF CONSULTATION: 12/09/2017 NEUROLOGY CONSULTATION CONSULTING PHYSICIAN: Jona Jean Baptiste M.D. REQUESTING PHYSICIAN: Todd Burnett M.D. HISTORY: Mr. Everardo Woodard is a 72-year-old, right-handed, gentleman, who does have a past history of hypertension, dyslipidemia, diabetes mellitus, congestive heart failure, a stroke with right upper extremity weakness a few years ago and since 2014 multiple episodes of loss of consciousness. As per the patient, the first episode of loss of consciousness was when he was at a gym sitting on a stationary bicycle and exercising when he apparently passed out and found himself on the floor with people looking over him. Since then, he has had approximately a dozen more episodes of loss of consciousness. On 12/07/2017, he was at a supermarket and standing in line to get his groceries and then apparently his vision darkened and he passed out. The supermarket land leasing information clerk was able to get him to sit on a chair and there was no injury. He was brought into the [facility] emergency room and evaluated there, but then he did not want to be admitted and left and went home. When he was at home, he was watching television sitting up on a sofa and then apparently woke up a few hours later and thinks that he may have again passed out. All his episodes of passing out are quite sudden and usually not preceded any symptoms, but on occasion he has felt a little dizzy and on one occasion his vision has darkened prior to these episodes. Recently, he has felt off balance and he has seen a neurologist for this problem. PAST MEDICAL HISTORY: Significant for hypertension, dyslipidemia, diabetes mellitus, congestive heart failure, a stroke a few years ago and multiple episodes of loss of consciousness thought to be fainting spells. FAMILY HISTORY: Significant for high blood pressure and diabetes mellitus in other family members. PERSONAL HISTORY: Home: He lives alone. Work: He is retired now. Habits: He used to have a rare alcoholic drink in the past, but has not had a drink for quite some time now. He denies use of tobacco or illicit drugs. PRESENT MEDICATIONS: Atorvastatin, amiodarone, ceftriaxone, hydralazine, hydrochlorothiazide, aspirin, Plavix, Norvasc, insulin, Tylenol p.r.n., and carvedilol. PHYSICAL EXAMINATION: GENERAL: He is a well-developed, well-nourished, pleasant gentleman, lying in bed, in no acute distress. VITAL SIGNS: Pulse 58 per minute, blood pressure 130/68 mmHg, respirations 19 per minute, and temperature 97.2 degrees Fahrenheit. HEAD: Normocephalic and atraumatic. EENT: Examination benign. NECK: No neck rigidity was observed. NEUROLOGIC EXAMINATION: MENTAL STATUS EXAMINATION: He was awake and alert. He was oriented to person, place, and time. He was able to recall 3/3 words immediately after 1 minute and after 3 minutes on the second trial. He was able to remember presidents Trump through Nicholson senior with hints. His mathematical skills were good. His visuospatial function was preserved. SPEECH: He had no dysarthria. LANGUAGE: He had no aphasia. CRANIAL NERVE EXAMINATION: II: The visual scales were intact to confrontation testing. III, IV & : External ocular movements were full and the pupils 3 mm in diameter, equal, round, regular, and reactive to light. V: He had normal facial sensations and the temporales, masseters, and pterygoids functioned normally. VII: He had a trace right VII central facial paresis. VIII: He was able to hear well bilaterally and had no nystagmus. IX: The palate moved symmetrically on phonation. X: He had no hoarseness of voice. XI: The sternocleidomastoids and trapezii functioned normally. XII: The tongue was in the midline without any fasciculations or atrophy. MOTOR SYSTEM: The tone was normal in all four extremities. Examination of muscle mass revealed no focal wasting. Examination of power revealed G 5/5 power in all muscle groups tested. SENSORY EXAMINATION: He had intact sensations to pinprick, light touch, and graphesthesia. COORDINATION: He performed well on kkrfep-qi-tssx and iyca-wm-ffyn testing. On Romberg test, he swayed, but did not fall to one side or the other. REFLEXES: Trace+ and bilaterally symmetrical at the biceps, triceps, brachioradialis, knees, and zero at both ankles. The plantar responses were flexor bilaterally. STANCE: He had a minimally wide-based, but stable stance. GAIT: He walked with a minimally wide-based, but stable gait. DIAGNOSTIC IMPRESSION: 1. Mr. Everardo Woodard is a 72-year-old, right-handed, gentleman, who does have a past history of hypertension, dyslipidemia, diabetes mellitus, congestive heart failure, cerebrovascular disease with a prior stroke a few years ago and multiple episodes of loss of consciousness thought to be fainting spells. He was hospitalized after having had possibly 1 or 2 episodes of loss of consciousness. 2. On neurological examination at this time, he does have a trace right VII central facial paresis, globally diminished deep tendon reflexes with loss of ankle jerks, a wide-based stance and a wide-based gait. 3. The CT scan of the brain without contrast reveals no acute pathology. 4. Laboratory Data obtained thus far revealed that he is mildly anemic with a hemoglobin of 9.3. His chemistry panel reveals that his BUN is elevated to 24, creatinine elevated, blood glucose elevated to 263, hemoglobin A1c elevated to 7.2%, BNP elevated to 1313 and his albumin is low at 3.0. His urinalysis reveals 2+ leukocyte esterase, 2-4 red blood cells, and 60-80 white blood cells per high-power field. 5. The patient's history and neurological examination are most compatible with multiple episodes of loss of consciousness most probably syncopal episodes. The most likely etiology for the syncopal episodes would be autonomic dysfunction. He also has a urinary tract infection at this point in time, which could have contributed to his present episode of loss of consciousness. RECOMMENDATIONS: 1. Agree with management thus far. 2. The patient should be worked up thoroughly for treatable causes of syncope. 3. Cardiac monitoring as is being done right now. 4. A Carotid duplex should be performed to evaluate the patient for hemodynamically significant carotid disease. 5. In the future, it may be worth considering performing a tilt-table test to evaluate him for his syncope. Thank you for entrusting me with the care of Mr. Woodard. I shall follow him with you. Jona Jean Baptiste M.D., M.S.P.H. DR: PITA JOB#: [id number] TOMY
--- NOTE | 2017-12-09 18:45 | Consultation ---
DATE OF CONSULTATION: 12/09/2017 CARDIOLOGY CONSULTATION CONSULTING PHYSICIAN: Abiodun Sands M.D. REFERRING PHYSICIAN: Todd Burnett M.D. REASON FOR CONSULTATION: Recurrent syncope in a patient with hypertension. HISTORY OF PRESENT ILLNESS: The patient is a 72-year-old Turkish gentleman with history of hypertension, diabetes, and hyperlipidemia as well as history of severe right upper extremity paresis who has had recurrent episodes of syncope. The patient stated that he has had these episodes in the last 4 years that happened about once every 3 months. The patient has had multiple evaluations that reported all have come negative. These are including event monitor as an outpatient. The patient was at [facility] on 12/07/2017, had episode of syncope and then had an episode while he was at home sitting up on a sofa. The patient was admitted and was noted to be severely orthostatic with blood pressure dropping from 150s to 120s. PAST MEDICAL HISTORY: As mentioned above. FAMILY HISTORY: Noncontributory. SOCIAL HISTORY: He lives at home. Does not smoke or drink alcohol. REVIEW OF SYSTEMS: Review of systems was performed and otherwise negative other than what was mentioned in the history of present illness. PHYSICAL EXAMINATION: VITAL SIGNS: Blood pressure of 130/61, pulse is 72, respirations 18, and he is afebrile. HEAD AND NECK: No JVD or carotid bruits. LUNGS: Clear. CARDIOVASCULAR: Regular S1 and S2 with no gallop or murmur. ABDOMEN: Soft. EXTREMITIES: No pitting edema. LABORATORY AND DIAGNOSTIC DATA: His EKG shows sinus rhythm with nonspecific ST abnormalities and mild prolonged QT of 408 milliseconds. His echocardiogram showed normal left ventricular systolic function, ejection fraction of 60% to 65%. His lab showed white count 7, hemoglobin 10, hematocrit 30 and platelet count is 222,000. Sodium 141, potassium 3.5, BUN of 19 and 1.8, and glucose of 193. His troponin is negative. BNP is 1313. ASSESSMENT AND PLAN: 1. Recurrent syncope. The patient was orthostatic and would be rehydrated. However, the patient also has prolonged QT with corrected QT of 408 milliseconds. The patient likely would benefit from event monitoring in the form of implantable loop recorder, as these episodes happen 3 to 4 times a year. Also, he may benefit from electrophysiology study. 2. Paroxysmal atrial fibrillation. The patient on amiodarone 200 mg daily as well as Coreg 25 mg b.i.d. The patient is on aspirin and Plavix. The patient used to be on Eliquis and Xarelto, however, these were stopped as the patient has had recurrent falls and bleeding. 3. Hypertension, on Norvasc 5 mg daily and Coreg 25 mg b.i.d. 4. failure. The patient is on hydrochlorothiazide 25 mg daily. 5. , on Lipitor. Thank you very much, Dr. Burnett, for allowing me to participate in the care of this patient. Please do not hesitate to contact me for any questions regarding my evaluation. Abiodun Sands M.D. DR: FELICITAS JOB#: [id number] CC:
[2017-12-09 20:00] VITALS: BP 154/97
[2017-12-10] VITALS: BP 127/68
--- NOTE | 2017-12-10 02:45 | Consultation ---
DATE OF CONSULTATION: 12/09/2017 NOTE: POOR AUDIO HEMATOLOGY/ONCOLOGY CONSULTATION CONSULTING PHYSICIAN: Raul Contreras M.D. REQUESTING PHYSICIAN: Todd Burnett M.D. REASON FOR CONSULTATION: Evaluation of anemia. IDENTIFYING DATA: Dear Dr. Burnett, The patient is a pleasant 72-year-old right-handed male with past medical history significant for hypertension, dyslipidemia, diabetes mellitus, CHF, history of stroke , at this time presents with loss of consciousness when he was going to the gym, on a stationary bike exercising apparently passed out. him, has had more episodes of loss of consciousness. It was noted to be . Hematology Service was called for evaluation and treatment. PAST MEDICAL HISTORY: Hypertension, dyslipidemia, diabetes mellitus, CHF, multiple episodes of loss of consciousness. MEDICATIONS: , hydrochlorothiazide, hydralazine. FAMILY HISTORY: High blood pressure and diabetes mellitus. PERSONAL HISTORY: Lives alone, retired. No recent alcohol. No drug use at this time. Denies any smoking. REVIEW OF SYSTEMS: CONSTITUTIONAL: No fevers, chills, or night sweats. SKIN: No rash, bumps, or itching. HEENT: No headache, hearing or vision changes. BREASTS: No lumps, pain, or discharge. PULMONARY: No cough, sputum, or shortness of breath. GASTROINTESTINAL: No nausea, vomiting, or diarrhea. GENITOURINARY: No dysuria, frequency, or urgency. MUSCULOSKELETAL: No joint swelling, muscle pain, or trauma. PHYSICAL EXAMINATION: VITAL SIGNS: Reviewed. GENERAL: No distress. LUNGS: Decreased breath sounds. Some crackles noted. CARDIOVASCULAR: Regular rate. No S3 or S4. ABDOMEN: Soft, nontender, and nondistended. EXTREMITIES: No cyanosis, swelling, or edema. LABORATORY AND DIAGNOSTIC DATA: WBC of 7, hemoglobin 10.1, hematocrit 31, and platelet count 222,000. BUN of 19 and creatinine 1.8. Serum protein electrophoresis is pending. TSH . Ferritin is pending at this time as well. ASSESSMENT AND RECOMMENDATIONS: 1. Anemia due to underlying chronic disease. Anemia workup has been reviewed. Ferritin is pending at this time. Hemoglobin goal is above 7. 2. Anemia, likely due to underlying hemodilution congestive heart failure. Continue to closely monitor. Has been seen by Dr. Sands, Cardiology Service. 3. Congestive heart failure. Further management per Cardiology. 4. Multiple episodes of syncope. . 5. Urinary tract infection, currently on ceftriaxone. 6. Carotid duplex, cardiac monitoring. I appreciate the consultation. Raul Contreras M.D. DR: ANDREA JOB#: [id number] CC:
[2017-12-10 04:00] VITALS: BP 122/71
[2017-12-10] MEDS: NovoLOG Insulin Flexpen SUBQ SCH (06:30)
[2017-12-10 07:37] LABS: BASOPHILS % (AUTO) 2.1 % (0.0-2.0); EOSINOPHILS % (AUTO) 4.8 % (0.0-3.0); HEMATOCRIT 31.2 % (42.0-52.0); HEMOGLOBIN 10.3 G/DL (14.2-18.0); LYMPHOCYTES % (AUTO) 32.4 % (20.0-45.0); MEAN CORPUSCULAR VOLUME 92 FL (80-99); MONOCYTES % (AUTO) 7.5 % (1.0-10.0); NEUTROPHILS % (AUTO) 53.2 % (45.0-75.0); PLATELET COUNT 223 K/UL (150-450); RED CELL DISTRIBUTION WIDTH 12.6 % (11.6-14.8); WHITE BLOOD COUNT 6.4 K/UL (4.8-10.8)
[2017-12-10 07:48] LABS: ALANINE AMINOTRANSFERASE 19 U/L (12-78); ALBUMIN 3.2 G/DL (3.4-5.0); ALBUMIN/GLOBULIN RATIO 0.9 (1.0-2.7); ALKALINE PHOSPHATASE 50 U/L (46-116); ANION GAP 6 mmol/L (5-15); ASPARTATE AMINO TRANSFERASE 14 U/L (15-37); BILIRUBIN,TOTAL 0.5 MG/DL (0.2-1.0); BLOOD UREA NITROGEN 19 mg/dL (7-18); CALCIUM 8.8 MG/DL (8.5-10.1); CARBON DIOXIDE 34 MMOL/L (21-32); CHLORIDE 104 MMOL/L (98-107); CREATININE 1.6 MG/DL (0.55-1.30); POTASSIUM 3.6 MMOL/L (3.5-5.1); SODIUM 144 MMOL/L (136-145)
[2017-12-10 08:00] VITALS: BP 129/67
--- NOTE | 2017-12-10 08:50 | General Progress Note ---
Assessment/Plan Assessment/Plan #. Anemia due to underlying chronic disease. Anemia workup has been reviewed. Ferritin is 89, therefore no evidence of iron deficiency. --> Hemoglobin goal is above 7. #. Anemia, likely due to underlying hemodilution from congestive heart failure. Continue to closely monitor. --> Has been seen by Dr. Sands, appreciate his recs #. Congestive heart failure. Further management per Cardiology. #. Multiple episodes of syncope. likely anemia related #. Urinary tract infection, currently on ceftriaxone. #. SUNDAY has continued to improve, on slow IVFs Subjective Constitutional: Denies: no symptoms, chills, diaphoresis, fever, malaise, weakness, other HEENT: Denies: no symptoms, eye pain, blurred vision, tearing, double vision, ear pain, ear discharge, nose pain, nose congestion, throat pain, throat swelling, mouth pain, mouth swelling, other Cardiovascular: Denies: no symptoms, chest pain, edema, irregular heart rate, lightheadedness, palpitations, syncope, other Respiratory: Denies: no symptoms, cough, orthopnea, shortness of breath, SOB with excertion, SOB at rest, sputum, stridor, wheezing, other Gastrointestinal/Abdominal: Denies: no symptoms, abdomen distended, abdominal pain, black stools, tarry stools, blood in stool, constipated, diarrhea, difficulty swallowing, nausea, poor appetite, poor fluid intake, rectal bleeding , vomiting, other Genitourinary: Denies: no symptoms, burning, discharge, frequency, flank pain, hematuria, incontinence, pain, urgency, other Neurologic/Psychiatric: Denies: no symptoms, anxiety, depressed, emotional problems, headache, numbness, paresthesia, pre-existing deficit, seizure, tingling, tremors, weakness, other Endocrine: Denies: no symptoms, excessive sweating, flushing, intolerance to cold, intolerance to heat, increased hunger, increased thirst, increased urine, unexplained weight gain, unexplained weight loss, other Hematologic/Lymphatic: Denies: no symptoms, anemia, easy bleeding, easy bruising, other Allergies: Coded Allergies: FUROSEMIDE (Unverified Allergy, Unknown, 12/07/17) Subjective no fevers or chills, no bleeding is noted, in good spirits this am Objective Last 24 Hour Vital Signs Date Time Temp Pulse Resp B/P (MAP) Pulse Ox O2 Delivery O2 Flow Rate FiO2 12/10/17 08:00 96.3 64 18 129/67 99 Room Air 96.3 12/10/17 06:40 80 12/10/17 06:35 70 12/10/17 06:30 75 12/10/17 04:00 55 12/10/17 04:00 97.2 60 20 122/71 100 Room Air 97.2 12/10/17 00:00 56 12/10/17 00:00 97.0 64 20 127/68 98 Room Air 97.0 12/09/17 21:04 63 154/97 12/09/17 20:00 63 12/09/17 20:00 97.3 63 20 154/97 98 Room Air 97.3 12/09/17 16:00 97.1 62 19 127/58 99 Room Air 97.1 12/09/17 16:00 61 12/09/17 12:10 72 12/09/17 12:05 70 12/09/17 12:00 97.7 68 19 130/61 99 Room Air 97.7 12/09/17 12:00 62 12/09/17 12:00 157 12/09/17 09:00 58 130/68 12/09/17 08:49 62 130/68 Intake and Output 12/09/17 12/10/17 19:00 07:00 Intake Total 120 ml Balance 120 ml Intake Oral 120 ml # Voids 1 100 Laboratory Tests 12/09/17 11:30: White Blood Count 7.0, Red Blood Count 3.31L, Hemoglobin 10.1L, Hematocrit 30.5L , Mean Corpuscular Volume 92, Mean Corpuscular Hemoglobin 30.5, Mean Corpuscular Hemoglobin Concent 33.1, Red Cell Distribution Width 12.7, Platelet Count 222, Mean Platelet Volume 9.6, Neutrophils (%) (Auto) 68.9, Lymphocytes (% ) (Auto) 18.9L, Monocytes (%) (Auto) 7.4, Eosinophils (%) (Auto) 3.4H, Basophils (%) (Auto) 1.5, Erythrocyte Sedimentation Rate 50H, Sodium Level 141, Potassium Level 3.5, Chloride Level 103, Carbon Dioxide Level 29, Anion Gap 9, Blood Urea Nitrogen 19H, Creatinine 1.8H, Estimat Glomerular Filtration Rate , Glucose Level 193H, Hemoglobin A1c 7.4H, Calcium Level 8.7, Magnesium Level 1.9 , Ferritin 89, Total Bilirubin 0.3, Aspartate Amino Transf (AST/SGOT) 14L, Alanine Aminotransferase (ALT/SGPT) 18, Alkaline Phosphatase 51, Total Protein 6.7, Total Protein (PEP) [Pending], Albumin 3.3L, Albumin (PEP) [Pending], Globulin 3.4, Globulin (PEP) [Pending], Albumin/Globulin Ratio [Pending], Alpha- 1-Globulins [Pending], Qmxvc-[id number]-Tqxdwlemg [Pending], Beta Globulins [Pending], Beta Gamma Globulin [Pending], PEP Abnormal Protein Bands [Pending], Protein Electrophoresis Interpret [Pending], Thyroid Stimulating Hormone (TSH) 0.514, Rapid Plasma Reagin [Pending] 12/10/17 06:55: White Blood Count 6.4, Red Blood Count 3.40L, Hemoglobin 10.3L, Hematocrit 31.2L , Mean Corpuscular Volume 92, Mean Corpuscular Hemoglobin 30.4, Mean Corpuscular Hemoglobin Concent 33.1, Red Cell Distribution Width 12.6, Platelet Count 223, Mean Platelet Volume 9.5, Neutrophils (%) (Auto) 53.2, Lymphocytes (% ) (Auto) 32.4, Monocytes (%) (Auto) 7.5, Eosinophils (%) (Auto) 4.8H, Basophils (%) (Auto) 2.1H, Sodium Level 144, Potassium Level 3.6, Chloride Level 104, Carbon Dioxide Level 34H, Anion Gap 6, Blood Urea Nitrogen 19H, Creatinine 1.6H , Estimat Glomerular Filtration Rate , Glucose Level 122H, Calcium Level 8.8, Total Bilirubin 0.5, Aspartate Amino Transf (AST/SGOT) 14L, Alanine Aminotransferase (ALT/SGPT) 19, Alkaline Phosphatase 50, Total Protein 6.7, Albumin 3.2L, Globulin 3.5, Albumin/Globulin Ratio 0.9L, Troponin I 0.000 Height (Feet): 5 Height (Inches): 9.00 Weight (Pounds): 147 General Appearance: alert EENT: TMs normal Neck: supple Cardiovascular: regular rhythm Respiratory/Chest: normal breath sounds Abdomen: non tender Extremities: normal range of motion Edema: 1+ Leg (L), 1+ Leg (R) Edema: mild edema Neurologic: alert Skin: warm/dry Raul Contreras MD December 10, 2017 08:50
[2017-12-10] MEDS: Aspirin Baby 81mg ORAL SCH (09:46)
[2017-12-10 09:47] VITALS: BP 129/67
[2017-12-10] MEDS: Carvedilol 25mg Tab ORAL SCH (09:47)
[2017-12-10] MEDS: Amiodarone 200mg tab ORAL SCH (09:47)
[2017-12-10] MEDS: cefTRIAXone 1 GM in D5W 110 ML IVPB SCH (10:20)
[2017-12-10] MEDS ORDERED: CEPHALEXIN500 MG ORAL (10:41)
--- NOTE | 2017-12-10 10:43 | Discharge Instructions ---
Discharge Instructions Discharge Instructions Follow Up Orders F/u with PCP for repeat BMP in 2-3 days. F/u with record librarian within 1 week for implanted loop recorder and electrophysiology study given prolonged QT interval. For Congestive Heart Failure Reminder Report to your physician any weight gain of 5 pounds or more in one week. Ifeoma Rossi NP December 10, 2017 10:43
--- NOTE | 2017-12-10 16:09 | Discharge Summary ---
Discharge Summary Hospital Course Date of Admission December 08, 2017 at 01:49 Date of Discharge December 10, 2017 at 11:42 Admitting Diagnosis syncope DESHAUN Woodard is a 72 year old male who was admitted on December 08, 2017 at 01:49 for Syncope 72 y/o male with a PMH of CHF, renal failure, CVA, HTN, and history of syncopal episodes that presented to the ED for a syncopal episode. Patient states that he had had a syncopal episode while at the grocery store after checking his blood pressure, which was systolic 70s. Patient was brought into the ED by EMS. Patient was noted to have low blood sugar and was given D50. Patient's blood sugar and blood pressure stabilized and patient refused to be admitted at the time. Patient went home and stated that he had another syncopal episode while he was watching TV on his couch. Thereafter, patient returned to the ED. CT head was negative and EKG was NSR. Patient was further admitted for syncopal episode. Denies any chest pain, sob, f/c, n/v, abdominal pain, focal deficits. Consultations Cardiology, Dr. Gasca Neurology, Dr. Jean Baptiste Hospital Course Patient was admitted to telemetry for continued telemetry monitoring given syncope. Neurology and cardiology consultations were requested. EKG was NSR and TTE showed 60-65% EF with no wall motion abnormalities. Carotid u/s was negative. Patient was positive for orthostatics and was started on IVF. Patient was also noted to have Cr of 2.2, which trended down with IVF. Patient was also noted to have a UTI and was started on IV ceftriaxone. Urine culture was sensitive to cephalosporins but also sensitive to flouroquinolones. However, patient was noted to have QT prolongation and therefore flouroquinolones were avoided. Given the QT prolongation, this may have been another possible etiology for patient's frequent syncopal episodes. Patient was advised to follow up with his undertaker assistant as outpatient for an EP study and electronic loop recorder. Patient was therefore hemodynamically stable prior to discharge and was advised to follow up with PCP and undertaker assistant within 1 week. Discharge Medications New Medications: Cephalexin* (Keflex*) 500 Mg Capsule 500 MG ORAL EVERY 12 HOURS for 8 Days, #16 CAP 0 Refills Continued Medications: Acetaminophen With Codeine (T#3) (Tylenol #3 Tab*) Y Tab 1 TAB ORAL Q6HR PRN for For Pain, #10 TAB Amiodarone Hcl* (Amiodarone Hcl*) 400 Mg Tablet 200 MG ORAL EVERY 12 HOURS, TAB (This prescription has been renewed) Aspirin* (Aspir 81*) 81 Mg Tablet.dr 81 MG ORAL DAILY, TAB Atenolol* (Tenormin*) 50 Mg Tablet 50 MG ORAL BID, TAB (This prescription has been renewed) Carvedilol* (Carvedilol*) 25 Mg Tablet 25 MG ORAL EVERY 12 HOURS, TAB (This prescription has been renewed) Clopidogrel Bisulfate* (Plavix*) 75 Mg Tablet 75 MG ORAL DAILY, TAB Clopidogrel* (Clopidogrel*) 75 Mg Tablet 75 MG ORAL DAILY, TAB (This prescription has been renewed) Felodipine (Felodipine Er) 5 Mg Tab.er.24h 5 MG PO DAILY, TAB (This prescription has been renewed) Glipizide* (Glipizide*) 5 Mg Tablet 5 MG ORAL BIDAC, TAB (This prescription has been renewed) Hydrochlorothiazide* (Hydrochlorothiazide*) 25 Mg Tablet 25 MG ORAL DAILY, TAB Lisinopril* (Prinivil*) 20 Mg Tablet 20 MG ORAL BID, TAB (This prescription has been renewed) Lisinopril* (Lisinopril*) 10 Mg Tablet 20 MG ORAL DAILY, TAB Lovastatin (Lovastatin) 40 Mg Tablet 40 MG ORAL BEDTIME, #30 TAB 0 Refills (This prescription has been renewed) Metformin Hcl* (Metformin Hcl*) 1,000 Mg Tablet 1000 MG ORAL BID, TAB (This prescription has been renewed) Metformin Hcl* (Metformin Hcl*) 1,000 Mg Tablet 1000 MG ORAL BID, TAB Discharge Condition Upon Discharge: improving, stable Discharge Disposition Patient was discharged to Home (01) Discharge Diagnoses: (1) CHF (congestive heart failure) (2) Renal insufficiency (3) Syncope (4) Diabetes (5) Hypertension (6) Rapid atrial fibrillation (7) History of CVA (cerebrovascular accident) (8) Hypokalemia (9) UTI (urinary tract infection) (10) Hypomagnesemia (11) QT prolongation Ifeoma Rossi NP December 10, 2017 16:09
--- NOTE | 2017-12-12 07:01 | Diagnostic Imaging Report ---
APPROVED REPORT CPT Code: 57587 Vascular Symptoms Comments: SYNCOPE. Doppler Spectral Velocity Analysis RightLeft BILATERAL: CCA/BULB - Imaging reveals irregular, minimal plaque in both carotid bulbs. arteries. The Doppler spectral flow analysis is within normal limits throughout the internal and external carotid arteries. VERTEBRALS - Imaging reveals both vertebral arteries to be patent, without evidence of stenosis or steal.
== END 2017-12-10 11:42 | disposition home or self-care (01) | DRG 312 ==
LOC: EMR 01:37 → 2E 01:49 → EDBEDREQ 02:13 → 2E 12-10 01:25
DX: I95.1 Orthostatic hypotension (principal); N39.0 Urinary tract infection, site not specified; N17.9 Acute kidney failure, unspecified; I50.9 Heart failure, unspecified; I48.0 Paroxysmal atrial fibrillation; Z88.8 Allergy status to other drugs, medicaments and biological substances; E11.9 Type 2 diabetes mellitus without complications; Z86.73 Personal history of transient ischemic attack (TIA), and cerebral infarction without residual deficits; E87.6 Hypokalemia; I11.0 Hypertensive heart disease with heart failure; E83.42 Hypomagnesemia; I45.81 Long QT syndrome; Z79.4 Long term (current) use of insulin; D63.8 Anemia in other chronic diseases classified elsewhere
CPT/HCPCS: 36415; 70450; 76770; 80053; 81003; 82550; 82553; 82728; 82962; 83036; 83735; 83880; 84165; 84443; 84484; 85025; 85651; 86592; 87086; 87181; 93005; 93306; 93880; 99285; J1815; J8499

== ENCOUNTER 2018-01-22 13:26 | Inpatient (IN) | payer MEDICARE ==
[~2018-01-22] VITALS: Ht 165.1 cm; Wt 67.7 kg
[~2018-01-22 13:26] MED LIST changes: +AMIODARONE HCL400 M1 ORAL; +CARVEDILOL25 MG ORAL; +CEPHALEXIN500 MG ORAL
[2018-01-22] MEDS ORDERED: Bacitracin Oint UD TOPIC ONE (13:30)
[2018-01-22] MEDS ORDERED: Morphine Sulfate 2mg/ml Inj(IV/IM USE ONLY) IVP ONE (13:30)
--- NOTE | 2018-01-22 13:40 | Emergency Room Report ---
History of Present Illness General Chief Complaint: Generalized Weakness Source: Patient, EMS Present Illness HPI The patient presents with generalized weakness. This began 10 days ago. He had just seen his doctor for vomiting which has resolved. An MRI of his head was ordered. He states he had an episode of syncope and woke up on the floor with right-sided chest pain and increased weakness on his left side. He's been barely able to get about. He feels thirsty. He was able to drink some sodas. He last moved his bowels about 10 days ago. He's had a stroke 9 years ago. He supposed be on Plavix but has not been able to take any of his medications including his BP meds. He has some scrapes and pressure areas on his skin at this time after being on the floor for 10 days. He states his tetanus is up-to- date. Paramedics performed an EKG. It showed atrial fibrillation without acute injury - initial rate 118. In addition the performed a blood glucose is 121. He rates the pain in his right chest is 4/10. It's worse when he tries to get up and move about. It goes up to 9/10 sharp and aching. He denies any dyspnea. He denies fevers, chills, other chest pain, palpitations, shortness of breath, headache, nausea, vomiting. He has a history of atrial fibrillation but states that his heart has been regular recently. In addition he has an event monitor on his chest which was supposed be returned last Saturday. He was discharged 12/10 after being admitted for syncope. (H/O multiple syncopal episodes according to the patient). D/C Dx: (1) CHF (congestive heart failure) (2) Renal insufficiency (3) Syncope (4) Diabetes (5) Hypertension (6) Rapid atrial fibrillation (7) History of CVA (cerebrovascular accident) (8) Hypokalemia (9) UTI (urinary tract infection) (10) Hypomagnesemia (11) QT prolongation Allergies: Coded Allergies: FUROSEMIDE (Unverified Allergy, Unknown, 12/07/17) Patient History Past Medical History: see triage record, old chart reviewed Social History: Denies: smoking, alcohol use, drug use Social History Narrative lives by himself Reviewed Nursing Documentation: PMH: Agreed; PSxH: Agreed Nursing Documentation-PMH Hx Cardiac Problems: Yes - A. FIB Hx Hypertension: Yes Hx Diabetes: Yes - Type 2 Hx Cancer: No Hx Gastrointestinal Problems: No Hx Cerebrovascular Accident: Yes - 2008 Review of Systems All Other Systems: negative except mentioned in HPI Physical Exam Vital Signs Date Time Temp Pulse Resp B/P (MAP) Pulse Ox O2 Delivery O2 Flow Rate FiO2 01/22/18 13:21 80 16 198/82 99 Room Air Sp02 EP Interpretation: reviewed, normal General Appearance: no apparent distress, alert, GCS 15, Chronically Ill Head: normocephalic, atraumatic Eyes: bilateral eye normal inspection, bilateral eye PERRL, bilateral eye EOMI ENT: dry mucus membranes Neck: full range of motion, supple, no bony tend Respiratory: lungs clear, normal breath sounds, other - Right-sided chest wall tenderness re-creates the pain when palpated. It's by his liver area also. There is no referred pain to the right upper quadrant with pressure there. Cardiovascular #1: regular rate, rhythm, no edema Cardiovascular #2: 2+ radial (R) Gastrointestinal: normal inspection, normal bowel sounds, no mass, non- distended, tenderness - Right upper quadrant Genitourinary: no CVA tenderness Musculoskeletal: back normal, normal range of motion - Some contractures of the left hand Neurologic: alert, oriented x3, bus steward III-XII nml as tested, DTRs symmetric, sensory intact, speech normal, motor weakness - Left-sided weakness of the upper extremity however lower extremity has symmetrical strength. Psychiatric: mood/affect normal Skin: warm/dry, abrasions - And pressure phenomenon elbows and lower extremities. Medical Decision Making Diagnostic Impression: Primary Impression: NSTEMI (non-ST elevated myocardial infarction) Additional Impressions: Renal insufficiency Stroke Qualified Codes: I63.9 - Cerebral infarction, unspecified Ribs, multiple fractures Qualified Codes: S22.41XA - Multiple fractures of ribs, right side, initial encounter for closed fracture Paroxysmal atrial fibrillation Syncope Qualified Codes: R55 - Syncope and collapse ER Course Patient presents with increased left-sided weakness after syncopal episode and hitting his chest. He is a complicated patient with multiple differentials. Most significant is the patient may have had a stroke, may also be a bleed. CT head is indicated. In addition he's complaining about right-sided chest pain after falling with syncope. Exam is consistent with possible rib fractures and a CT of the chest will be obtained. There is minimal right upper quadrant pain referred to the chest wall and a CT abdomen is not indicated. The fact he's been on the floor for several days makes him at risk for rhabdomyolysis. IV hydration will be started. Lab analysis will include lactate and troponin was CBC and CMP. The patient will be treated for the pain he has on his right side. The patient is too weak to be at home and will be admitted to the hospital. The patient had a fib in the field however, his heart rate is normal and regular now. We need to exclude cardiac injury. EKG, NSR, no acute injury. CXR unremarkable. Labs with + troponin, renal insufficiency (baseline creat 1.6, now 2.5), elevated BNP, slightly elevated LFTs. CT chest with 4 fractured ribs R. Improved with analgesia. Aspirin and nitro bid begun. Also given his antihypertensive medications. Patient denies cardiac chest pain. Admit SDU Dr. Garland. (Dr. Burnett not available.) Laboratory Tests Test 01/22/18 13:30 01/22/18 14:09 White Blood Count 10.8 K/UL (4.8-10.8) Red Blood Count 4.29 M/UL (4.70-6.10) L Hemoglobin 12.1 G/DL (14.2-18.0) L Hematocrit 38.1 % (42.0-52.0) L Mean Corpuscular Volume 89 FL (80-99) Mean Corpuscular Hemoglobin 28.3 PG (27.0-31.0) Mean Corpuscular Hemoglobin Concent 31.8 G/DL (32.0-36.0) L Red Cell Distribution Width 12.7 % (11.6-14.8) Platelet Count 278 K/UL (150-450) Mean Platelet Volume 9.0 FL (6.5-10.1) Neutrophils (%) (Auto) 82.4 % (45.0-75.0) H Lymphocytes (%) (Auto) 7.9 % (20.0-45.0) L Monocytes (%) (Auto) 5.2 % (1.0-10.0) Eosinophils (%) (Auto) 4.1 % (0.0-3.0) H Basophils (%) (Auto) 0.4 % (0.0-2.0) Prothrombin Time 10.2 SEC (9.30-11.50) Prothrombin Time INR 1.0 (0.9-1.1) PTT 26 SEC (23-33) Sodium Level 139 MMOL/L (136-145) Potassium Level 3.2 MMOL/L (3.5-5.1) L Chloride Level 104 MMOL/L (98-107) Carbon Dioxide Level 21 MMOL/L (21-32) Anion Gap 14 mmol/L (5-15) Blood Urea Nitrogen 40 mg/dL (7-18) H Creatinine 2.5 MG/DL (0.55-1.30) H Estimate Glomerular Filtration Rate mL/min (>60) Glucose Level 113 MG/DL (74-106) H Lactic Acid Level 1.30 mmol/L (0.4-2.0) Calcium Level 9.1 MG/DL (8.5-10.1) Total Bilirubin 1.1 MG/DL (0.2-1.0) H Direct Bilirubin 0.5 MG/DL (0.0-0.3) H Aspartate Amino Transferase (AST) 73 U/L (15-37) H Alanine Aminotransferase (ALT) 111 U/L (12-78) H Alkaline Phosphatase 87 U/L (46-116) Total Creatine Kinase 488 U/L (26-308) H Troponin I 0.962 ng/mL (0.000-0.056) Pro-B-Type Natriuretic Peptide 2767 pg/mL (0-125) H Total Protein 6.8 G/DL (6.4-8.2) Albumin 2.7 G/DL (3.4-5.0) L Globulin 4.1 g/dL Albumin/Globulin Ratio 0.7 (1.0-2.7) L Urine Color Yellow Urine Appearance Clear Urine pH 5 (4.5-8.0) Urine Specific [place] 1.020 (1.005-1.035) Urine Protein 2+ (NEGATIVE) H Urine Glucose (UA) 2+ (NEGATIVE) H Urine Ketones 3+ (NEGATIVE) H Urine Occult Blood 4+ (NEGATIVE) H Urine Nitrite Negative (NEGATIVE) Urine Bilirubin Negative (NEGATIVE) Urine Urobilinogen 1 MG/DL (0.0-1.0) H Urine Leukocyte Esterase 1+ (NEGATIVE) H Urine RBC 2-4 /HPF (0 - 0) H Urine WBC 2-4 /HPF (0 - 0) Urine Squamous Epithelial Cells Occasional /LPF Urine Bacteria Occasional /HPF (NONE) EKG Diagnostic Results Rate: normal Rhythm: NSR ST Segments: no acute changes ASA given to the pt in ED: Yes Rhythm Strip Diag. Results EP Interpretation: yes Rhythm: NSR, no PVC's, no ectopy Chest X-Ray Diagnostic Results Chest X-Ray Diagnostic Results : Chest X-Ray Ordered: Yes # of Views/Limited/Complete: 1 View Indication: Other EP Interpretation: Yes Interpretation: no consolidation, no effusion, no pneumothorax Impression: No acute disease Electronically Signed by: Electronically signed by Wellington Castillo MD CT/MRI/US Diagnostic Results CT/MRI/US Diagnostic Results #1: Imaging Test Ordered: head Impression No acute intracranial process. Atrophy with small vessel disease. Small area of encephalomalacia malacia in the right parietal lobe. CT/MRI/US Diagnostic Results #2: Imaging Test Ordered: Chest and abdomen Impression Fractures involving sixth through 10th rib on the right no pneumothorax. Small areas of clustered nodular opacities in the right lung. 2 breathing gallbladder with suspected a component of pancreatitis. Yes anterior pericardial fluid measuring 13 mm. Last Vital Signs Date Time Temp Pulse Resp B/P (MAP) Pulse Ox O2 Delivery O2 Flow Rate FiO2 7/5/18 00:00 97.6 62 20 100/50 100 Room Air 97.6 Status: improved Disposition: ADMITTED INPATIENT Condition: Serious Wellington Castillo M.D. Jan 22, 2018 13:40
[2018-01-22] MEDS: Sodium Chloride 500ML 550 ML IV SCH ×2 (13:51→16:01)
[2018-01-22 14:05] VITALS: BP 170/79
[2018-01-22 14:09] LABS: BASOPHILS % (AUTO) 0.4 % (0.0-2.0); EOSINOPHILS % (AUTO) 4.1 % (0.0-3.0); HEMATOCRIT 38.1 % (42.0-52.0); HEMOGLOBIN 12.1 G/DL (14.2-18.0); LYMPHOCYTES % (AUTO) 7.9 % (20.0-45.0); MEAN CORPUSCULAR VOLUME 89 FL (80-99); MONOCYTES % (AUTO) 5.2 % (1.0-10.0); NEUTROPHILS % (AUTO) 82.4 % (45.0-75.0); PLATELET COUNT 278 K/UL (150-450); RED BLOOD COUNT 4.29 M/UL (4.70-6.10); RED CELL DISTRIBUTION WIDTH 12.7 % (11.6-14.8); WHITE BLOOD COUNT 10.8 K/UL (4.8-10.8)
[2018-01-22 14:29] LABS: ANION GAP 14 mmol/L (5-15); BLOOD UREA NITROGEN 40 mg/dL (7-18); CALCIUM 9.1 MG/DL (8.5-10.1); CARBON DIOXIDE 21 MMOL/L (21-32); CHLORIDE 104 MMOL/L (98-107); CREATININE 2.5 MG/DL (0.55-1.30); POTASSIUM 3.2 MMOL/L (3.5-5.1); SODIUM 139 MMOL/L (136-145)
[2018-01-22 14:43] LABS: APPEARANCE,URINE CLEAR; BILIRUBIN, URINE NEGATIVE (NEGATIVE); GLUCOSE, URINE (UA) 2+ (NEGATIVE); KETONES,URINE 3+ (NEGATIVE); LEUKOCYTE ESTERASE ,URINE 1+ (NEGATIVE); NITRITE,URINE NEGATIVE (NEGATIVE); PH,URINE 5 (4.5-8.0); PROTEIN,URINE 2+ (NEGATIVE); UROBILINOGEN,URINE 1 MG/DL (0.0-1.0)
[2018-01-22 14:48] LABS: ALANINE AMINOTRANSFERASE 111 U/L (12-78); ALBUMIN 2.7 G/DL (3.4-5.0); ALBUMIN/GLOBULIN RATIO 0.7 (1.0-2.7); ALKALINE PHOSPHATASE 87 U/L (46-116); ASPARTATE AMINO TRANSFERASE 73 U/L (15-37); BILIRUBIN,DIRECT 0.5 MG/DL (0.0-0.3); BILIRUBIN,TOTAL 1.1 MG/DL (0.2-1.0); CREATINE KINASE 488 U/L (26-308)
[2018-01-22 14:52] LABS: COLOR,URINE YELLOW
[2018-01-22] MEDS ORDERED: Nitroglycerin 2% oint pkt TOPIC ONE (15:00)
[2018-01-22 16:14] VITALS: BP 166/67
[2018-01-22] MEDS ORDERED: ACTOS15 MG ORAL (16:23)
[2018-01-22 16:30] VITALS: BP 156/75
[2018-01-22] MEDS ORDERED: Carvedilol 25mg Tab ORAL ONE (16:45)
[2018-01-22] MEDS ORDERED: Lisinopril 10mg tab ORAL ONE (16:45)
[2018-01-22] MEDS ORDERED: AMIODARONE HCL400 M1 ORAL (17:14)
[2018-01-22] MEDS ORDERED: POTASSIUM CHLO10 MEQ ORAL (17:25)
[2018-01-22] MEDS ORDERED: Albuterol/Ipratropium 3ml neb HHN PRN (18:00)
[2018-01-22] MEDS ORDERED: Nitroglycerin Subl 0.4mg tab SL PRN (18:02)
[2018-01-22] MEDS ORDERED: LORazepam Inj 2mg/ml 1ml IV PRN (18:02)
[2018-01-22] MEDS ORDERED: Mylanta II UD 30ml ORAL PRN (18:02)
[2018-01-22] MEDS ORDERED: Morphine Sulfate 2mg/ml Inj(IV/IM USE ONLY) IVP PRN (18:03)
[2018-01-22] MEDS ORDERED: Promethazine/Codeine 5ml UD ORAL PRN (18:03)
[2018-01-22] MEDS: D5 1/2NS 1,000 ML IV SCH (19:38)
[2018-01-22 20:00] VITALS: BP 128/55
[2018-01-22] MEDS ORDERED: Miralax 17gm pkt ORAL PRN (21:00)
[2018-01-22] MEDS: Heparin 5000 units/ml inj SUBQ SCH (21:28)
[2018-01-23] VITALS: BP 100/50
[2018-01-23 04:00] VITALS: BP 107/60
[2018-01-23 04:35] LABS: BASOPHILS % (AUTO) 0.6 % (0.0-2.0); EOSINOPHILS % (AUTO) 8.2 % (0.0-3.0); HEMATOCRIT 27.3 % (42.0-52.0); HEMOGLOBIN 8.8 G/DL (14.2-18.0); MEAN CORPUSCULAR VOLUME 89 FL (80-99); MONOCYTES % (AUTO) 5.4 % (1.0-10.0); NEUTROPHILS % (AUTO) 71.8 % (45.0-75.0); PLATELET COUNT 177 K/UL (150-450); RED BLOOD COUNT 3.05 M/UL (4.70-6.10); RED CELL DISTRIBUTION WIDTH 12.8 % (11.6-14.8); WHITE BLOOD COUNT 8.4 K/UL (4.8-10.8)
[2018-01-23 04:48] LABS: AMMONIA 18 umol/L (11-32)
[2018-01-23 05:01] LABS: ALANINE AMINOTRANSFERASE 72 U/L (12-78); ALBUMIN 1.9 G/DL (3.4-5.0); ALBUMIN/GLOBULIN RATIO 0.6 (1.0-2.7); ALKALINE PHOSPHATASE 55 U/L (46-116); ANION GAP 11 mmol/L (5-15); ASPARTATE AMINO TRANSFERASE 42 U/L (15-37); BILIRUBIN,TOTAL 0.6 MG/DL (0.2-1.0); BLOOD UREA NITROGEN 36 mg/dL (7-18); CALCIUM 7.7 MG/DL (8.5-10.1); CARBON DIOXIDE 23 MMOL/L (21-32); CHLORIDE 105 MMOL/L (98-107); CHOLESTEROL 109 MG/DL (< 200); CREATININE 2.3 MG/DL (0.55-1.30); HDL CHOLESTEROL 42 MG/DL (40-60); SODIUM 140 MMOL/L (136-145); TRIGLYCERIDES 96 MG/DL (30-150)
[2018-01-23 05:04] LABS: POTASSIUM 2.5 MMOL/L (3.5-5.1)
[2018-01-23 08:00] VITALS: BP 92/47
[2018-01-23] MEDS: Heparin 5000 units/ml inj SUBQ SCH ×2 (08:43→20:59)
--- NOTE | 2018-01-23 09:18 | Diagnostic Imaging Report ---
Reason For Exam: WEAK Technique: Continuous helical CT scanning of the head was performed utilizing automated exposure control without intravenous contrast material. Axial and coronal reconstructions were obtained. Comparison: 12/08/2017, 01/07/2017 CT dose: Total DLP 1502.36 mGycm; CTDI vol 70.38 mGy Findings: There is no acute intracranial hemorrhage, mass effect, midline shift or cortical edema. There is an unchanged small area of encephalomalacia in the high right parietal lobe, similar to prior exam, likely sequela of remote ischemia. The ventricles, cisterns and sulci are prominent consistent with atrophy. Periventricular hypoattenuation is seen, a nonspecific finding most commonly related to sequela of chronic microvascular ischemia. There are atherosclerotic vascular calcifications. Visualized mastoid air cells and paranasal sinuses are unremarkable. No focal lesions of the bony calvarium or soft tissues of the scalp are seen. IMPRESSION: No evidence of acute intracranial hemorrhage, mass effect or cortical edema. MRI may be obtained for more sensitive evaluation as clinically indicated. Atrophy and nonspecific periventricular hypoattenuation suggestive of chronic ischemic microvascular changes. This corresponds with the statrad preliminary report. The CT scanner at [facility] is accredited by the [employer] and the scans are performed using protocols designed to limit radiation exposure to as low as reasonably achievable to attain images of sufficient resolution adequate for diagnostic evaluation.
--- NOTE | 2018-01-23 09:31 | Diagnostic Imaging Report ---
Reason For Exam: Weakness, trauma Technique: CT chest was performed utilizing automated exposure control without intravenous contrast material. Axial and sagittal and coronal images were generated. CT dose: Total DLP 511.44 mGycm; CTDI vol 13.94 mGy Comparison: None Findings: There are very subtle fractures involving the 6th through 10th anterior right ribs. There are multilevel degenerative changes in the thoracic spine. There is no evidence of pneumothorax or pleural fluid. There are couple areas of clustered nodular densities in the right lung. There is minimal dependent atelectatic change posteriorly. Heart size within normal limits. Anterior pericardial fluid measuring up to 13 mm in thickness. Hypoattenuation of the blood pool relative to the septum raising question for anemia. There is coronary arterial calcifications. No pathologically enlarged hilar or mediastinal lymphadenopathy. Thoracic aorta is normal in caliber. Visualized thyroid unremarkable. High attenuation debris versus vicarious excretion of contrast in the gallbladder. A 7 mm dense cyst is noted within the left kidney which may be a proteinaceous or hemorrhagic cyst. There is some inflammatory stranding about the pancreas with small peripancreatic lymph nodes.. IMPRESSION: Exam without contrast. Within these limitations: * Subtle fractures involving the right 6th through 10th anterior ribs are no pneumothorax or pleural effusion. * Scattered areas of clustered nodular opacities in the right lung which may be infectious or inflammatory in etiology. Correlate clinically. Follow-up chest CT in 3-6 months recommended to assess for stability/resolution. * High attenuation debris in the gallbladder versus vicarious excretion of contrast. * Question stranding about the pancreas with some small peripancreatic lymph nodes. Correlate with amylase/lipase levels to assess for possible pancreatitis. * Anterior pericardial fluid measuring up to 13 mm in thickness. * Coronary arterial calcifications. * Subcentimeter dense lesion in the kidney possibly representing a hemorrhagic or proteinaceous cyst. Consider further evaluation with ultrasound. This corresponds with the statrad preliminary report. The CT scanner at [facility] is accredited by the [employer] and the scans are performed using protocols designed to limit radiation exposure to as low as reasonably achievable to attain images of sufficient resolution adequate for diagnostic evaluation.
--- NOTE | 2018-01-23 10:07 | Diagnostic Imaging Report ---
Indication: Chest pain, cough Technique: XRAY Chest 1v Comparison: None Findings: Heart size and mediastinal contours are within normal limits allowing for mild patient rotation. No focal airspace consolidation, pleural effusion or pneumothorax. No acute osseous abnormality is identified. A device projects over the left upper lung, likely external to the patient. Impression: Clear lungs.
--- NOTE | 2018-01-23 11:01 | Consultation ---
History of Present Illness General Date patient seen: Jan 23, 2018 Chief Complaint: Generalized Weakness Present Illness HPI 72 year old male with history of atrial fibrillation presents with generalized weakness for 10 days. He had an episode of syncope and woke up on the floor with right-sided chest pain and increased weakness on his left side. He's been barely able to get about. He had a stroke 9 years ago. He supposed be on Plavix but has not been able to take any of his medications including his BP meds. Paramedics performed an EKG. It showed atrial fibrillation without acute injury - initial rate 118. In addition the performed a blood glucose is 121. He is admitted to [place] for CVA, uncontrolled Afib and ACS. Allergies: Coded Allergies: FUROSEMIDE (Unverified Allergy, Unknown, 12/07/17) Medication History Scheduled Amiodarone Hcl* (Amiodarone Hcl*), 400 MG ORAL DAILY, (Reported) Aspirin* (Aspir 81*), 81 MG ORAL DAILY, (Reported) Carvedilol* (Carvedilol*), 25 MG ORAL EVERY 12 HOURS, (Reported) Clopidogrel Bisulfate* (Plavix*), 75 MG ORAL DAILY, (Reported) Lisinopril* (Prinivil*), 20 MG ORAL BID, (Reported) Lovastatin (Lovastatin), 40 MG ORAL BEDTIME, (Reported) Pioglitazone Hcl* (Actos*), 15 MG ORAL DAILY, (Reported) Potassium Chloride* (K-Dur*), 10 MEQ ORAL TWICE A DAY, (Reported) Discontinued Medications Atenolol* (Tenormin*), 50 MG ORAL BID, (Reported) Discontinued Reason: MD discontinued med Cephalexin* (Keflex*), 500 MG ORAL EVERY 12 HOURS Discontinued Reason: Therapy completed Felodipine (Felodipine Er), 5 MG PO DAILY, (Reported) Discontinued Reason: MD discontinued med Glipizide* (Glipizide*), 5 MG ORAL BIDAC, (Reported) Discontinued Reason: MD discontinued med Hydrochlorothiazide* (Hydrochlorothiazide*), 25 MG ORAL DAILY, (Reported) Discontinued Reason: MD discontinued med Lisinopril* (Lisinopril*), 20 MG ORAL DAILY, (Reported) Discontinued Reason: MD discontinued med Metformin Hcl* (Metformin Hcl*), 1,000 MG ORAL BID, (Reported) Discontinued Reason: MD discontinued med Metformin Hcl* (Metformin Hcl*), 1,000 MG ORAL BID, (Reported) Discontinued Reason: MD discontinued med Patient History Healthcare decision maker N/A Resuscitation status Full Code Advanced Directive on File No Past Medical/Surgical History Past Medical/Surgical History: (1) Paroxysmal atrial fibrillation (2) History of CVA (cerebrovascular accident) (3) Hypertension (4) Diabetes (5) CHF (congestive heart failure) Review of Systems Constitutional: Reports: no symptoms Eye: Reports: no symptoms ENT: Reports: no symptoms Physical Exam General Appearance: WD/WN, no apparent distress Lines, tubes and drains: peripheral HEENT: normocephalic, atraumatic Neck: non-tender, normal alignment Respiratory/Chest: chest wall non-tender, lungs clear Breasts: no masses Cardiovascular/Chest: normal peripheral pulses, normal rate Abdomen: normal bowel sounds, non tender Genitourinary/Rectal: normal genital exam Extremities: normal range of motion Skin Exam: normal pigmentation Last 24 Hour Vital Signs Date Time Temp Pulse Resp B/P (MAP) Pulse Ox O2 Delivery O2 Flow Rate FiO2 01/23/18 08:00 97.0 57 20 92/47 97 Room Air 97.0 01/23/18 08:00 58 01/23/18 04:12 56 01/23/18 04:00 97.5 60 20 107/60 98 Room Air 97.5 01/23/18 00:00 59 01/23/18 00:00 97.6 62 20 100/50 100 Room Air 97.6 01/22/18 20:00 97.7 65 20 128/55 97 Room Air 97.7 01/22/18 20:00 59 01/22/18 19:01 72 18 Room Air 01/22/18 17:40 68 13 171/81 100 Room Air 01/22/18 16:52 68 171/81 01/22/18 16:43 171/81 01/22/18 16:30 97.2 71 18 156/75 99 Room Air 97.2 01/22/18 16:14 68 13 166/67 100 Room Air 01/22/18 15:02 170/79 01/22/18 14:05 71 15 170/79 100 Room Air 01/22/18 13:21 80 16 198/82 99 Room Air Intake and Output 01/22/18 01/23/18 19:00 07:00 Intake Total 550 ml 668 ml Balance 550 ml 668 ml Intake Oral 100 ml IV Total 550 ml 568 ml # Voids 1 1 Laboratory Tests Test 01/22/18 13:30 01/22/18 14:09 01/23/18 04:12 White Blood Count 10.8 K/UL (4.8-10.8) 8.4 K/UL (4.8-10.8) Red Blood Count 4.29 M/UL (4.70-6.10) L 3.05 M/UL (4.70-6.10) L Hemoglobin 12.1 G/DL (14.2-18.0) L 8.8 G/DL (14.2-18.0) L Hematocrit 38.1 % (42.0-52.0) L 27.3 % (42.0-52.0) L Mean Corpuscular Volume 89 FL (80-99) 89 FL (80-99) Mean Corpuscular Hemoglobin 28.3 PG (27.0-31.0) 28.9 PG (27.0-31.0) Mean Corpuscular Hemoglobin Concent 31.8 G/DL (32.0-36.0) L 32.2 G/DL (32.0-36.0) Red Cell Distribution Width 12.7 % (11.6-14.8) 12.8 % (11.6-14.8) Platelet Count 278 K/UL (150-450) 177 K/UL (150-450) Mean Platelet Volume 9.0 FL (6.5-10.1) 8.4 FL (6.5-10.1) Neutrophils (%) (Auto) 82.4 % (45.0-75.0) H 71.8 % (45.0-75.0) Lymphocytes (%) (Auto) 7.9 % (20.0-45.0) L 14.0 % (20.0-45.0) L Monocytes (%) (Auto) 5.2 % (1.0-10.0) 5.4 % (1.0-10.0) Eosinophils (%) (Auto) 4.1 % (0.0-3.0) H 8.2 % (0.0-3.0) H Basophils (%) (Auto) 0.4 % (0.0-2.0) 0.6 % (0.0-2.0) Prothrombin Time 10.2 SEC (9.30-11.50) 10.8 SEC (9.30-11.50) Prothromb Time International Ratio 1.0 (0.9-1.1) 1.0 (0.9-1.1) Activated Partial Thromboplast Time 26 SEC (23-33) 30 SEC (23-33) Sodium Level 139 MMOL/L (136-145) 140 MMOL/L (136-145) Potassium Level 3.2 MMOL/L (3.5-5.1) L 2.5 MMOL/L (3.5-5.1) *L Chloride Level 104 MMOL/L (98-107) 105 MMOL/L (98-107) Carbon Dioxide Level 21 MMOL/L (21-32) 23 MMOL/L (21-32) Anion Gap 14 mmol/L (5-15) 11 mmol/L (5-15) Blood Urea Nitrogen 40 mg/dL (7-18) H 36 mg/dL (7-18) H Creatinine 2.5 MG/DL (0.55-1.30) H 2.3 MG/DL (0.55-1.30) H Estimat Glomerular Filtration Rate mL/min (>60) mL/min (>60) Glucose Level 113 MG/DL (74-106) H 118 MG/DL (74-106) H Lactic Acid Level 1.30 mmol/L (0.4-2.0) Calcium Level 9.1 MG/DL (8.5-10.1) 7.7 MG/DL (8.5-10.1) L Total Bilirubin 1.1 MG/DL (0.2-1.0) H 0.6 MG/DL (0.2-1.0) Direct Bilirubin 0.5 MG/DL (0.0-0.3) H Aspartate Amino Transf (AST/SGOT) 73 U/L (15-37) H 42 U/L (15-37) H Alanine Aminotransferase (ALT/SGPT) 111 U/L (12-78) H 72 U/L (12-78) Alkaline Phosphatase 87 U/L (46-116) 55 U/L (46-116) Total Creatine Kinase 488 U/L (26-308) H Troponin I 0.962 ng/mL (0.000-0.056) 0.893 ng/mL (0.000-0.056) Pro-B-Type Natriuretic Peptide 2767 pg/mL (0-125) H Total Protein 6.8 G/DL (6.4-8.2) 4.9 G/DL (6.4-8.2) L Albumin 2.7 G/DL (3.4-5.0) L 1.9 G/DL (3.4-5.0) L Globulin 4.1 g/dL 3.0 g/dL Albumin/Globulin Ratio 0.7 (1.0-2.7) L 0.6 (1.0-2.7) L Urine Color Yellow Urine Appearance Clear Urine pH 5 (4.5-8.0) Urine Specific [place] 1.020 (1.005-1.035) Urine Protein 2+ (NEGATIVE) H Urine Glucose (UA) 2+ (NEGATIVE) H Urine Ketones 3+ (NEGATIVE) H Urine Occult Blood 4+ (NEGATIVE) H Urine Nitrite Negative (NEGATIVE) Urine Bilirubin Negative (NEGATIVE) Urine Urobilinogen 1 MG/DL (0.0-1.0) H Urine Leukocyte Esterase 1+ (NEGATIVE) H Urine RBC 2-4 /HPF (0 - 0) H Urine WBC 2-4 /HPF (0 - 0) Urine Squamous Epithelial Cells Occasional /LPF Urine Bacteria Occasional /HPF (NONE) Ammonia 18 umol/L (11-32) Triglycerides Level 96 MG/DL (30-150) Cholesterol Level 109 MG/DL (< 200) LDL Cholesterol 53 mg/dL (<100) HDL Cholesterol 42 MG/DL (40-60) Cholesterol/HDL Ratio 2.6 (3.3-4.4) L Thyroid Stimulating Hormone (TSH) 1.391 uiU/mL (0.358-3.740) Height (Feet): 5 Height (Inches): 5.00 Weight (Pounds): 150 Medications Current Medications Medications (Trade) Dose Ordered Sig/Kim Route PRN Reason Start Time Stop Time Status Last Admin Dose Admin Acetaminophen (Tylenol) 650 mg Q4H PRN ORAL fever 01/22/18 18:01 02/21/18 18:00 Al Hydroxide/Mg Hydroxide (Mylanta II) 30 ml Q6H PRN ORAL dyspepsia 01/22/18 18:02 02/21/18 18:01 Albuterol/ Ipratropium (Albuterol/ Ipratropium) 3 ml Q4H PRN HHN Shortness of Breath 01/22/18 18:00 01/27/18 17:59 Clonidine HCl (Catapres Tab) 0.1 mg Q4H PRN ORAL For SBP>160 01/22/18 18:06 02/21/18 18:05 Dextrose (Dextrose 50%) 25 ml STAT PRN IV Hypoglycemia 01/22/18 18:04 02/21/18 18:03 Dextrose (Dextrose 50%) 50 ml STAT PRN IV Hypoglycemia 01/22/18 18:04 02/21/18 18:03 Dextrose/Sodium Chloride 1,000 ml @ 50 mls/hr Q20H IV 01/22/18 18:30 02/21/18 18:29 01/22/18 19:38 Heparin Sodium (Porcine) (Heparin 5000 units/ml) 5,000 units EVERY 12 HOURS SUBQ 01/22/18 21:00 02/21/18 20:59 01/23/18 08:43 Lorazepam (Ativan 2mg/ml 1ml) 0.5 mg Q4H PRN IV For Anxiety 01/22/18 18:02 01/29/18 18:01 Morphine Sulfate (Morphine Sulfate) 1 mg Q4H PRN IVP For Pain 7-10 01/22/18 18:03 01/29/18 18:02 01/23/18 00:36 Nitroglycerin (Ntg) 0.4 mg Q5M X 3 DOSES PRN SL Prn Chest Pain 01/22/18 18:02 02/21/18 18:01 Ondansetron HCl (Zofran) 4 mg Q6H PRN IVP Nausea & Vomiting 01/22/18 18:01 02/21/18 18:00 Polyethylene Glycol (Miralax) 17 gm HSPRN PRN ORAL Constipation 01/22/18 21:00 02/21/18 20:59 Potassium Chloride 100 ml @ 100 mls/hr Q1HR IVPB 01/23/18 08:00 01/23/18 11:59 01/23/18 10:25 Promethazine HCl/ Codeine (Phenergan with Codeine) 5 ml Q4H PRN ORAL For Cough 01/22/18 18:03 02/21/18 18:02 Temazepam (Restoril) 15 mg HSPRN PRN ORAL Insomnia 01/22/18 21:00 01/29/18 20:59 01/22/18 21:32 Assessment/Plan Problem List: (1) Pulmonary nodule ICD Codes: R91.1 - Solitary pulmonary nodule SNOMED: 965175885 (2) NSTEMI (non-ST elevated myocardial infarction) ICD Codes: I21.4 - Non-ST elevation (NSTEMI) myocardial infarction SNOMED: 387838599 (3) Paroxysmal atrial fibrillation ICD Codes: I48.0 - Paroxysmal atrial fibrillation SNOMED: 131747072 (4) Ribs, multiple fractures ICD Codes: S22.49XA - Multiple fractures of ribs, unspecified side, initial encounter for closed fracture SNOMED: 6474163 Qualifiers: Qualified Codes: S22.41XA - Multiple fractures of ribs, right side, initial encounter for closed fracture (5) Hypertension ICD Codes: I10 - Essential (primary) hypertension SNOMED: 19114424 (6) History of CVA (cerebrovascular accident) ICD Codes: Z86.73 - Personal history of transient ischemic attack (TIA), and cerebral infarction without residual deficits SNOMED: 160243724 (7) Diabetes ICD Codes: E11.9 - Type 2 diabetes mellitus without complications SNOMED: 06056312 Assessment/Plan serial ekg, troponin echo cardiology to see MRI of brain, ( CT Head was negative) sliding scale diabetic diet pt/ot monitor and control heart rate. Tania Angel MD Jan 23, 2018 11:01
--- NOTE | 2018-01-23 11:08 | Cardiac Electrophysiology PN ---
Subjective Subjective Dictated [id number] Objective Last 24 Hour Vital Signs Date Time Temp Pulse Resp B/P (MAP) Pulse Ox O2 Delivery O2 Flow Rate FiO2 01/23/18 08:00 97.0 57 20 92/47 97 Room Air 97.0 01/23/18 08:00 58 01/23/18 04:12 56 01/23/18 04:00 97.5 60 20 107/60 98 Room Air 97.5 01/23/18 00:00 59 01/23/18 00:00 97.6 62 20 100/50 100 Room Air 97.6 01/22/18 20:00 97.7 65 20 128/55 97 Room Air 97.7 01/22/18 20:00 59 01/22/18 19:01 72 18 Room Air 01/22/18 17:40 68 13 171/81 100 Room Air 01/22/18 16:52 68 171/81 01/22/18 16:43 171/81 01/22/18 16:30 97.2 71 18 156/75 99 Room Air 97.2 01/22/18 16:14 68 13 166/67 100 Room Air 01/22/18 15:02 170/79 01/22/18 14:05 71 15 170/79 100 Room Air 01/22/18 13:21 80 16 198/82 99 Room Air Intake and Output 01/22/18 01/23/18 19:00 07:00 Intake Total 550 ml 668 ml Balance 550 ml 668 ml Intake Oral 100 ml IV Total 550 ml 568 ml # Voids 1 1 Laboratory Tests Test 01/22/18 13:30 01/22/18 14:09 01/23/18 04:12 White Blood Count 10.8 K/UL (4.8-10.8) 8.4 K/UL (4.8-10.8) Red Blood Count 4.29 M/UL (4.70-6.10) L 3.05 M/UL (4.70-6.10) L Hemoglobin 12.1 G/DL (14.2-18.0) L 8.8 G/DL (14.2-18.0) L Hematocrit 38.1 % (42.0-52.0) L 27.3 % (42.0-52.0) L Mean Corpuscular Volume 89 FL (80-99) 89 FL (80-99) Mean Corpuscular Hemoglobin 28.3 PG (27.0-31.0) 28.9 PG (27.0-31.0) Mean Corpuscular Hemoglobin Concent 31.8 G/DL (32.0-36.0) L 32.2 G/DL (32.0-36.0) Red Cell Distribution Width 12.7 % (11.6-14.8) 12.8 % (11.6-14.8) Platelet Count 278 K/UL (150-450) 177 K/UL (150-450) Mean Platelet Volume 9.0 FL (6.5-10.1) 8.4 FL (6.5-10.1) Neutrophils (%) (Auto) 82.4 % (45.0-75.0) H 71.8 % (45.0-75.0) Lymphocytes (%) (Auto) 7.9 % (20.0-45.0) L 14.0 % (20.0-45.0) L Monocytes (%) (Auto) 5.2 % (1.0-10.0) 5.4 % (1.0-10.0) Eosinophils (%) (Auto) 4.1 % (0.0-3.0) H 8.2 % (0.0-3.0) H Basophils (%) (Auto) 0.4 % (0.0-2.0) 0.6 % (0.0-2.0) Prothrombin Time 10.2 SEC (9.30-11.50) 10.8 SEC (9.30-11.50) Prothromb Time International Ratio 1.0 (0.9-1.1) 1.0 (0.9-1.1) Activated Partial Thromboplast Time 26 SEC (23-33) 30 SEC (23-33) Sodium Level 139 MMOL/L (136-145) 140 MMOL/L (136-145) Potassium Level 3.2 MMOL/L (3.5-5.1) L 2.5 MMOL/L (3.5-5.1) *L Chloride Level 104 MMOL/L (98-107) 105 MMOL/L (98-107) Carbon Dioxide Level 21 MMOL/L (21-32) 23 MMOL/L (21-32) Anion Gap 14 mmol/L (5-15) 11 mmol/L (5-15) Blood Urea Nitrogen 40 mg/dL (7-18) H 36 mg/dL (7-18) H Creatinine 2.5 MG/DL (0.55-1.30) H 2.3 MG/DL (0.55-1.30) H Estimat Glomerular Filtration Rate mL/min (>60) mL/min (>60) Glucose Level 113 MG/DL (74-106) H 118 MG/DL (74-106) H Lactic Acid Level 1.30 mmol/L (0.4-2.0) Calcium Level 9.1 MG/DL (8.5-10.1) 7.7 MG/DL (8.5-10.1) L Total Bilirubin 1.1 MG/DL (0.2-1.0) H 0.6 MG/DL (0.2-1.0) Direct Bilirubin 0.5 MG/DL (0.0-0.3) H Aspartate Amino Transf (AST/SGOT) 73 U/L (15-37) H 42 U/L (15-37) H Alanine Aminotransferase (ALT/SGPT) 111 U/L (12-78) H 72 U/L (12-78) Alkaline Phosphatase 87 U/L (46-116) 55 U/L (46-116) Total Creatine Kinase 488 U/L (26-308) H Pending Troponin I 0.962 ng/mL (0.000-0.056) 0.893 ng/mL (0.000-0.056) Pro-B-Type Natriuretic Peptide 2767 pg/mL (0-125) H Total Protein 6.8 G/DL (6.4-8.2) 4.9 G/DL (6.4-8.2) L Albumin 2.7 G/DL (3.4-5.0) L 1.9 G/DL (3.4-5.0) L Globulin 4.1 g/dL 3.0 g/dL Albumin/Globulin Ratio 0.7 (1.0-2.7) L 0.6 (1.0-2.7) L Urine Color Yellow Urine Appearance Clear Urine pH 5 (4.5-8.0) Urine Specific [place] 1.020 (1.005-1.035) Urine Protein 2+ (NEGATIVE) H Urine Glucose (UA) 2+ (NEGATIVE) H Urine Ketones 3+ (NEGATIVE) H Urine Occult Blood 4+ (NEGATIVE) H Urine Nitrite Negative (NEGATIVE) Urine Bilirubin Negative (NEGATIVE) Urine Urobilinogen 1 MG/DL (0.0-1.0) H Urine Leukocyte Esterase 1+ (NEGATIVE) H Urine RBC 2-4 /HPF (0 - 0) H Urine WBC 2-4 /HPF (0 - 0) Urine Squamous Epithelial Cells Occasional /LPF Urine Bacteria Occasional /HPF (NONE) Uric Acid Pending Ammonia 18 umol/L (11-32) Triglycerides Level 96 MG/DL (30-150) Cholesterol Level 109 MG/DL (< 200) LDL Cholesterol 53 mg/dL (<100) HDL Cholesterol 42 MG/DL (40-60) Cholesterol/HDL Ratio 2.6 (3.3-4.4) L Thyroid Stimulating Hormone (TSH) 1.391 uiU/mL (0.358-3.740) Abiodun Sands MD Jan 23, 2018 11:08
[2018-01-23 11:30] LABS: CREATINE KINASE 179 U/L (26-308)
[2018-01-23 12:00] VITALS: BP 113/60
[2018-01-23 14:00] LABS: APPEARANCE,URINE CLEAR; BILIRUBIN, URINE 1+ (NEGATIVE); GLUCOSE, URINE (UA) 1+ (NEGATIVE); KETONES,URINE 2+ (NEGATIVE); LEUKOCYTE ESTERASE ,URINE NEGATIVE (NEGATIVE); NITRITE,URINE NEGATIVE (NEGATIVE); PH,URINE 5 (4.5-8.0); PROTEIN,URINE 2+ (NEGATIVE); UROBILINOGEN,URINE 1 MG/DL (0.0-1.0)
[2018-01-23 14:14] LABS: COLOR,URINE YELLOW
[2018-01-23] MEDS: D5 1/2NS 1,000 ML IV SCH ×2 (15:16→18:14)
[2018-01-23 16:00] VITALS: BP 95/50
--- NOTE | 2018-01-23 17:00 | Consultation ---
DATE OF CONSULTATION: 01/23/2018 CARDIAC ELECTROPHYSIOLOGY CONSULTATION CONSULTING PHYSICIAN: Abiodun Sands M.D. REFERRING PHYSICIAN: Tania Angel M.D. ADDITIONAL REFERRING PHYSICIAN: Reynaldo Garland M.D. REASON FOR CONSULTATION: Atrial fibrillation and elevated troponin. HISTORY OF PRESENT ILLNESS: The patient is a 72-year-old gentleman with history of hypertension, paroxysmal atrial fibrillation as well as CVA 9 years ago who has had recurrent episodes of syncope. The patient underwent a Zio patch by his laboratory technologist, Dr. Gillespie to find out why he is having recurrent syncopal episodes. He had yet another episode of syncope and woke from the floor with right-sided chest pain, increased weakness on the left side. The patient was barely able to get out of bed. The patient was brought to the emergency room and EKG showed atrial fibrillation without acute injury, with a rate of 110 to 120 beats per minute. His blood glucose also 121. At the time of evaluation, the patient denies any chest pain, palpitation, or shortness of breath. REVIEW OF SYSTEMS: Review of systems was negative other than what was mentioned in the history of present illness. PAST MEDICAL HISTORY: As mentioned above. FAMILY HISTORY: Noncontributory. MEDICATIONS: Amiodarone 400 mg daily, aspirin 81 mg daily, Coreg 25 mg b.i.d., Plavix 75 mg daily, lisinopril 20 mg b.i.d., Pravachol 40 mg daily, Actos and K-Dur. SOCIAL HISTORY: He does not smoke or drink alcohol. PHYSICAL EXAMINATION: VITAL SIGNS: Blood pressure of 92/47, pulse 57, respiration is 20 and he is afebrile. HEAD AND NECK: No JVD. LUNGS: Clear. CARDIOVASCULAR: Irregular S1 and S2 with no gallop or murmur. He has a Zio patch that left side of his chest. ABDOMEN: Soft. EXTREMITIES: No pitting edema. LABORATORY DATA: His labs show white count of 8.4, hemoglobin 8.8, hematocrit of 27.3, and platelet count is 177. Sodium 140, potassium 2.5, BUN of 36, creatinine 2.3, and glucose of 118. Troponin is 0.96 and 0.893. ASSESSMENT AND PLAN: 1. Troponin elevation. The levels are flat at 0.9 and 0.9, most likely due to the patient's renal failure, the creatinine is 2.3. The patient does not have any chest pain either. We will get an echocardiogram to evaluate for ejection fraction and wall motion abnormality. At the meantime, the patient will be treated with aspirin and Plavix. We will hold off on beta-gayla, as the blood pressure is only 92. 2. Atrial fibrillation. The patient is already on amiodarone, that would be resumed. We will hold off on beta-gayla in view of hypotension at this time. The patient is on aspirin and Plavix to find out why the patient was not on full anticoagulation. 3. Status post recurrent syncope. The patient has a Zio Patch. We will try to find out the cause of syncopal episodes. 4. History of cerebrovascular accident. 5. Renal failure, creatinine of 2.5. Thank you very much, Dr. Angel and Dr. Garland, for allowing me to participate in the care of this patient. Please do not hesitate to contact me for any questions regarding my evaluation. Abiodun Sansd M.D. DR: FELICITAS JOB#: [id number] CC:
[2018-01-23] MEDS ORDERED: Nitroglycerin Subl 0.4mg tab SL PRN (17:15)
[2018-01-23] MEDS ORDERED: Albuterol/Ipratropium 3ml neb HHN PRN (18:00)
[2018-01-23] MEDS ORDERED: Mylanta II UD 30ml ORAL PRN (18:15)
[2018-01-23] MEDS ORDERED: Promethazine/Codeine 5ml UD ORAL PRN (18:15)
[2018-01-23] MEDS ORDERED: Morphine Sulfate 2mg/ml Inj(IV/IM USE ONLY) IVP PRN (18:15)
[2018-01-23] MEDS ORDERED: LORazepam Inj 2mg/ml 1ml IV PRN (18:15)
--- NOTE | 2018-01-23 18:24 | History & Physical ---
History and Physical History & Physicial Dictated for Int Med-Dr Garland no. [id number]. Renzo Buckner MD Jan 23, 2018 18:24
[2018-01-23 20:00] VITALS: BP 108/58
--- NOTE | 2018-01-23 22:00 | History and Physical Report ---
DATE OF ADMISSION: 01/22/2018 CHIEF COMPLAINT: The patient is a 72-year-old white male, who presents with chief complaint of syncopal episode. HISTORY OF PRESENT ILLNESS: It began on January 13, 2018. The patient passed out. The patient has pretty much been on the floor since that time. The patient was checked on by his neighbor on 01/22/2018. The patient was found on the floor. EMS was called. The patient was transported to [facility]. The patient is admitted with syncopal episode to rule out acute cerebrovascular accident versus acute myocardial infarction. REVIEW OF SYSTEMS: CONSTITUTIONAL: The patient denies weight loss or weight gain. The patient denies fevers or chills. HEENT: The present denies ear or throat pain. The patient denies headache. CARDIOVASCULAR: The patient denies palpitations or chest pain. CHEST: The patient denies wheeze or shortness of breath. ABDOMEN: The patient denies nausea, vomiting, diarrhea, or constipation. GENITOURINARY: The patient denies dysuria or increased frequency of urination. NEUROMUSCULAR: The patient complains of syncopal episode as above. The patient denies seizures or generalized weakness. PAST MEDICAL HISTORY: Significant for: 1. Type 2 diabetes. 2. Hypertension. 3. History of cerebrovascular accident in 2008. PAST SURGICAL HISTORY: Significant for cardiac angioplasty with balloon in 2017. CURRENT MEDICATIONS: 1. Amiodarone 400 mg p.o. daily. 2. Aspirin 81 mg p.o. daily. 3. Carvedilol 25 mg p.o. twice daily. 4. Clopidogrel 75 mg p.o. daily. 5. Lisinopril 20 mg p.o. twice daily. 6. Lovastatin 40 mg p.o. nightly. 7. Actos 15 mg p.o. daily. 8. Potassium chloride 10 mEq p.o. twice daily. ALLERGIES: To furosemide. SOCIAL HISTORY: The patient is single and lives alone. The patient denies tobacco use, having quit 30 years ago. The patient denies alcohol use. PHYSICAL EXAMINATION: VITAL SIGNS: Temperature 97.2 degrees, respirations 18, pulse 71, and blood pressure . GENERAL: The patient is a well-developed and well-nourished male, in no apparent distress. HEENT: Eyes, pupils equal and responsive to light and accommodation. Extraocular movements are intact. NECK: Supple without lymphadenopathy. CHEST: Lungs are clear to auscultation bilaterally without wheezes or rales. CARDIOVASCULAR: Regular rate. S1 and S2 normal without murmurs, rubs, or gallops. ABDOMEN: Soft, nontender, and nondistended. Positive bowel sounds. No evidence of hepatosplenomegaly. Currently, no rebound or guarding noted. EXTREMITIES: Negative for clubbing, cyanosis, or edema. RECTAL: Refused. GENITAL: Refused. NEUROLOGIC: The patient does have a left hemiplegia. Motor strength is 2/5 on the left and 4/5 on the right. Deep tendon reflexes are 2+, plantar. LABORATORY STUDIES: WBC 10.8, hemoglobin 12.1, hematocrit 38.1, and platelets 278,000. Sodium 139, potassium 3.2, chloride 104, CO2 21, BUN 40, creatinine 2.5, and glucose 113. CT scan of the chest revealed nondisplaced fractures of ribs #6 through #10 and right pulmonary nodules. A CT scan of the brain was reported as no acute disease. ASSESSMENT: This is a 72-year-old white male with: 1. Syncopal episode. 2. Elevated troponin. 3. Cerebrovascular disease. 4. Left hemiparesis. 5. Diabetes type 2. 6. Hypertension. 7. Fracture of the right #6 through #10 ribs. 8. Right lung nodules. TREATMENT: 1. Syncopal episode/elevated troponin. A Cardiology consultation has been obtained with Dr. Sibley. We will follow recommendations of Cardiology. The patient may have had a cerebrovascular accident versus myocardial infarction. An MRI of the brain is pending. 2. History of cerebrovascular disease. As above, an MRI of the brain is pending. Carotid duplex and Dopplers are pending. An echocardiogram is pending. 3. Left hemiparesis, this is probably secondary to new cerebrovascular accident. Physical therapy and occupational therapy have been ordered. 4. Diabetes type 2. The patient has been placed on a NovoLog sliding scale. 5. Hypertension. The patient is currently hypotensive. 6. Fracture of the right #6 through #10 ribs. 7. Right lung nodules. Renzo Buckner M.D. DR: MEENA JOB#: [id number] CC:
[2018-01-24] VITALS: BP 109/57
--- NOTE | 2018-01-24 00:37 | Cardiology Report ---
APPROVED REPORT EKG Measurement Heart [id number] Normal sinus rhythm Possible Anterior infarct, age undetermined Abnormal ECG
[2018-01-24 04:00] VITALS: BP 124/59
[2018-01-24 05:50] LABS: BASOPHILS % (AUTO) 0.8 % (0.0-2.0); EOSINOPHILS % (AUTO) 4.9 % (0.0-3.0); HEMATOCRIT 27.2 % (42.0-52.0); LYMPHOCYTES % (AUTO) 10.4 % (20.0-45.0); MEAN CORPUSCULAR VOLUME 90 FL (80-99); MONOCYTES % (AUTO) 7.7 % (1.0-10.0); NEUTROPHILS % (AUTO) 76.2 % (45.0-75.0); PLATELET COUNT 207 K/UL (150-450); RED BLOOD COUNT 3.03 M/UL (4.70-6.10); RED CELL DISTRIBUTION WIDTH 13.1 % (11.6-14.8); WHITE BLOOD COUNT 8.9 K/UL (4.8-10.8)
[2018-01-24 06:24] LABS: ANION GAP 7 mmol/L (5-15); BLOOD UREA NITROGEN 33 mg/dL (7-18); CALCIUM 7.5 MG/DL (8.5-10.1); CARBON DIOXIDE 25 MMOL/L (21-32); CHLORIDE 105 MMOL/L (98-107); CREATININE 2.3 MG/DL (0.55-1.30); SODIUM 137 MMOL/L (136-145)
[2018-01-24 08:00] VITALS: BP 128/55
[2018-01-24] MEDS: Docusate 100mg cap ORAL SCH ×2 (08:49→18:04)
[2018-01-24] MEDS: Amiodarone 200mg tab ORAL SCH (08:49)
[2018-01-24] MEDS: Aspirin Baby 81mg ORAL SCH (08:49)
[2018-01-24] MEDS: Heparin 5000 units/ml inj SUBQ SCH ×2 (08:51→21:00)
[2018-01-24] MEDS ORDERED: Amiodarone 200mg tab ORAL SCH (09:00)
[2018-01-24] MEDS ORDERED: Aspirin Baby 81mg ORAL SCH (09:00)
[2018-01-24] MEDS ORDERED: D5 1/2NS 1000ml IV ONE (10:07)
[2018-01-24] MEDS ORDERED: Tubing IV Secondary IV ONE (10:07)
[2018-01-24] MEDS ORDERED: NS 275ml ONE (10:07)
[2018-01-24 12:00] VITALS: BP 123/58
--- NOTE | 2018-01-24 12:26 | Pulmonology Progress Note ---
Assessment/Plan Problems: (1) Pulmonary nodule (2) NSTEMI (non-ST elevated myocardial infarction) (3) Paroxysmal atrial fibrillation (4) Ribs, multiple fractures (5) Hypertension (6) History of CVA (cerebrovascular accident) (7) Diabetes Assessment/Plan MRI postponed because of the device pt is carrying DVT f/u by Dr. Rodriguez Monitor BP hear rate control. Subjective ROS Limited/Unobtainable: No Constitutional: Reports: no symptoms HEENT: Repors: no symptoms Respiratory: Reports: no symptoms Allergies: Coded Allergies: FUROSEMIDE (Unverified Allergy, Unknown, 12/07/17) Objective Last 24 Hour Vital Signs Date Time Temp Pulse Resp B/P (MAP) Pulse Ox O2 Delivery O2 Flow Rate FiO2 01/24/18 12:00 97.5 74 18 123/58 99 Room Air 97.5 01/24/18 08:00 97.4 72 18 128/55 99 Room Air 97.4 01/24/18 08:00 71 01/24/18 04:00 97.9 73 17 124/59 98 Room Air 97.9 01/24/18 04:00 69 01/24/18 00:00 97.7 73 19 109/57 99 Room Air 97.7 01/24/18 00:00 70 01/23/18 20:47 75 18 Room Air 01/23/18 20:00 74 01/23/18 20:00 97.0 76 18 108/58 93 Room Air 97.0 01/23/18 16:00 68 01/23/18 16:00 97.3 70 18 95/50 97 Room Air 97.3 Intake and Output 01/23/18 01/24/18 19:00 07:00 Intake Total 1690 ml 240 ml Output Total 300 ml 450 ml Balance 1390 ml -210 ml Intake Oral 740 ml 240 ml IV Total 950 ml Output Urine Total 300 ml 450 ml General Appearance: WD/WN HEENT: normocephalic Respiratory/Chest: chest wall non-tender Cardiovascular: normal peripheral pulses, normal rate Abdomen: normal bowel sounds, soft, non tender Genitourinary: normal external genitalia Skin: no rash Laboratory Tests 01/23/18 13:00: Urine Color Yellow, Urine Appearance Clear, Urine pH 5, Urine Specific [place] 1.020, Urine Protein 2+H, Urine Glucose (UA) 1+H, Urine Ketones 2+H, Urine Occult Blood 2+H, Urine Nitrite Negative, Urine Bilirubin 1+H, Urine Ictotest Positive, Urine Urobilinogen 1H, Urine Leukocyte Esterase Negative, Urine RBC 5- 10H, Urine WBC 0-2, Urine Squamous Epithelial Cells Occasional, Urine Bacteria Occasional, Urine Fine Granular Casts 2-4H, Urine Eosinophils None seen, Urine Random Sodium < 20L, Urine Potassium Timed 32 01/24/18 05:20: White Blood Count 8.9, Red Blood Count 3.03L, Hemoglobin 9.0L, Hematocrit 27.2L , Mean Corpuscular Volume 90, Mean Corpuscular Hemoglobin 29.8, Mean Corpuscular Hemoglobin Concent 33.1, Red Cell Distribution Width 13.1, Platelet Count 207, Mean Platelet Volume 8.3, Neutrophils (%) (Auto) 76.2H, Lymphocytes ( %) (Auto) 10.4L, Monocytes (%) (Auto) 7.7, Eosinophils (%) (Auto) 4.9H, Basophils (%) (Auto) 0.8, Sodium Level 137, Potassium Level 3.0L, Chloride Level 105, Carbon Dioxide Level 25, Anion Gap 7, Blood Urea Nitrogen 33H, Creatinine 2.3H, Estimat Glomerular Filtration Rate , Glucose Level 160H, Calcium Level 7.5L, Troponin I 0.611H Current Medications Medications (Trade) Dose Ordered Sig/Kim Route PRN Reason Start Time Stop Time Status Last Admin Dose Admin Acetaminophen (Tylenol) 650 mg Q4H PRN ORAL T>100.5 01/23/18 18:15 02/21/18 18:00 Al Hydroxide/Mg Hydroxide (Mylanta II) 30 ml Q6H PRN ORAL dyspepsia 01/23/18 18:15 02/21/18 18:01 Albuterol/ Ipratropium (Albuterol/ Ipratropium) 3 ml Q4H PRN HHN Shortness of Breath 01/23/18 18:00 01/27/18 17:59 Amiodarone HCl (Cordarone) 400 mg DAILY ORAL 01/24/18 09:00 02/23/18 08:59 01/24/18 08:49 Aspirin (ASA) 81 mg DAILY ORAL 01/24/18 09:00 02/23/18 08:59 01/24/18 08:49 Clonidine HCl (Catapres Tab) 0.1 mg Q4H PRN ORAL For SBP>160 01/23/18 18:15 02/21/18 18:05 Clopidogrel Bisulfate (Plavix) 75 mg DAILY ORAL 01/24/18 09:00 02/23/18 08:59 01/24/18 08:49 Dextrose (Dextrose 50%) 25 ml STAT PRN IV Hypoglycemia 01/23/18 18:15 02/21/18 18:03 Dextrose (Dextrose 50%) 50 ml STAT PRN IV Hypoglycemia 01/23/18 18:15 02/21/18 18:03 Dextrose/Sodium Chloride 1,000 ml @ 50 mls/hr Q20H IV 01/23/18 18:00 02/22/18 17:59 01/23/18 18:14 Docusate Sodium (Colace) 100 mg TWICE A DAY ORAL 01/24/18 09:00 02/23/18 08:59 01/24/18 08:49 Heparin Sodium (Porcine) (Heparin 5000 units/ml) 5,000 units EVERY 12 HOURS SUBQ 01/23/18 21:00 02/21/18 20:59 01/24/18 08:51 Lorazepam (Ativan 2mg/ml 1ml) 0.5 mg Q4H PRN IV For Anxiety 01/23/18 18:15 01/29/18 18:01 Morphine Sulfate (Morphine Sulfate) 1 mg Q4H PRN IVP Severe Pain (Pain Scale 7-10) 01/23/18 18:15 01/29/18 18:02 Nitroglycerin (Ntg) 0.4 mg Q5M X 3 DOSES PRN SL Prn Chest Pain 01/23/18 17:15 02/21/18 18:01 Ondansetron HCl (Zofran) 4 mg Q6H PRN IVP Nausea & Vomiting 01/23/18 18:15 02/21/18 18:00 Polyethylene Glycol (Miralax) 17 gm HSPRN PRN ORAL Constipation 01/23/18 21:00 02/21/18 20:59 Promethazine HCl/ Codeine (Phenergan with Codeine) 5 ml Q4H PRN ORAL For Cough 01/23/18 18:15 02/21/18 18:02 Temazepam (Restoril) 15 mg HSPRN PRN ORAL Insomnia 01/23/18 21:00 01/29/18 20:59 Tania Angel MD Jan 24, 2018 12:26
[2018-01-24] MEDS: D5 1/2NS 1,000 ML IV SCH (13:13)
--- NOTE | 2018-01-24 14:16 | Diagnostic Imaging Report ---
APPROVED REPORT CPT Code: 77374 Present Symptoms Lower Extremity Edema: Bilateral RIGHT LEG: Venous imaging reveals a patent deep venous system. There is no evidence of thrombus within the femoral, popliteal or tibial segments. The greater saphenous vein is also within normal limits. Doppler indicates normal spontaneous flow within these segments. LEFT LEG: Venous imaging reveals acute thrombus in one of the paired calf veins (peroneal tibial). Imaging also reveals patency of the common femoral, popliteal and calf veins (posterior tibial and anterior tibial). [facility] was notified of abnormal results at 1350 hours.
--- NOTE | 2018-01-24 14:16 | Diagnostic Imaging Report ---
APPROVED REPORT CPT Code: 71377 Vascular Symptoms CVA/TIA: Doppler Spectral Velocity Analysis RightLeft RIGHT SIDE: CCA/BULB - Imaging reveals irregular, minimal plaque in the carotid bulb. arteries. The Doppler signal indicates the degree of stenosis is minimal (10% - 20%) in the internal and external carotid arteries. VERTEBRAL- The vertebral arteries are patent without evidence of stenosis or steal. LEFT SIDE: CCA/BULB - Imaging reveals irregular, minimal plaque in the carotid bulb. ICA arteries. The Doppler signal indicates the degree of stenosis is minimal (10% - 20%) in the internal and mild (50%)external carotid arteries. VERTEBRAL- The vertebral arteries are patent without evidence of stenosis or steal.
--- NOTE | 2018-01-24 14:20 | Cardiology Report ---
APPROVED REPORT EKG Measurement Heart [id number] [place] [id number] Normal sinus rhythm Low voltage QRS Nonspecific ST abnormality Prolonged QT Abnormal ECG
--- NOTE | 2018-01-24 15:37 | Cardiac Electrophysiology PN ---
Assessment/Plan Assessment/Plan 1. Troponin elevation. The levels are flat at 0.9 and 0.9, most likely due to the patient's renal failure, the creatinine is 2.3. The patient does not have any chest pain either. Echocardiogram showed EF 55%. Continue aspirin and Plavix. 2. Atrial fibrillation. On aspirin and Plavix and Amiodarone 3. Status post recurrent syncope. The patient has a Zio Patch. We will try to find out the cause of syncopal episodes. MRI Brain pending. Had Zio opatch for more than 2 weeks and can be removed. 4. History of cerebrovascular accident. 5. Renal failure, creatinine of 2.5. Subjective Subjective No CP or SOB. Awaiting MRI Brain. In SR. Objective Last 24 Hour Vital Signs Date Time Temp Pulse Resp B/P (MAP) Pulse Ox O2 Delivery O2 Flow Rate FiO2 01/24/18 12:00 97.5 74 18 123/58 99 Room Air 97.5 01/24/18 12:00 67 01/24/18 08:00 97.4 72 18 128/55 99 Room Air 97.4 01/24/18 08:00 71 01/24/18 04:00 97.9 73 17 124/59 98 Room Air 97.9 01/24/18 04:00 69 01/24/18 00:00 97.7 73 19 109/57 99 Room Air 97.7 01/24/18 00:00 70 01/23/18 20:47 75 18 Room Air 01/23/18 20:00 74 01/23/18 20:00 97.0 76 18 108/58 93 Room Air 97.0 01/23/18 16:00 68 01/23/18 16:00 97.3 70 18 95/50 97 Room Air 97.3 Intake and Output 01/23/18 01/24/18 19:00 07:00 Intake Total 1690 ml 240 ml Output Total 300 ml 450 ml Balance 1390 ml -210 ml Intake Oral 740 ml 240 ml IV Total 950 ml Output Urine Total 300 ml 450 ml Laboratory Tests Test 01/24/18 05:20 White Blood Count 8.9 K/UL (4.8-10.8) Red Blood Count 3.03 M/UL (4.70-6.10) L Hemoglobin 9.0 G/DL (14.2-18.0) L Hematocrit 27.2 % (42.0-52.0) L Mean Corpuscular Volume 90 FL (80-99) Mean Corpuscular Hemoglobin 29.8 PG (27.0-31.0) Mean Corpuscular Hemoglobin Concent 33.1 G/DL (32.0-36.0) Red Cell Distribution Width 13.1 % (11.6-14.8) Platelet Count 207 K/UL (150-450) Mean Platelet Volume 8.3 FL (6.5-10.1) Neutrophils (%) (Auto) 76.2 % (45.0-75.0) H Lymphocytes (%) (Auto) 10.4 % (20.0-45.0) L Monocytes (%) (Auto) 7.7 % (1.0-10.0) Eosinophils (%) (Auto) 4.9 % (0.0-3.0) H Basophils (%) (Auto) 0.8 % (0.0-2.0) Sodium Level 137 MMOL/L (136-145) Potassium Level 3.0 MMOL/L (3.5-5.1) L Chloride Level 105 MMOL/L (98-107) Carbon Dioxide Level 25 MMOL/L (21-32) Anion Gap 7 mmol/L (5-15) Blood Urea Nitrogen 33 mg/dL (7-18) H Creatinine 2.3 MG/DL (0.55-1.30) H Estimat Glomerular Filtration Rate mL/min (>60) Glucose Level 160 MG/DL (74-106) H Calcium Level 7.5 MG/DL (8.5-10.1) L Troponin I 0.611 ng/mL (0.000-0.056) Objective HEAD AND NECK: No JVD. LUNGS: Clear. CARDIOVASCULAR: Irregular S1 and S2 with no gallop or murmur. He has a Zio patch left side of his chest. ABDOMEN: Soft. EXTREMITIES: No pitting edema. Abiodun Sands MD Jan 24, 2018 15:37
[2018-01-24 16:00] VITALS: BP 101/54
--- NOTE | 2018-01-24 16:31 | Internal Med Progress Note ---
Subjective Date of Service: Jan 24, 2018 Physician Name Renzo Bucknre Attending Physician Reynaldo Garland MD Current Medications Medications (Trade) Dose Ordered Sig/Kim Route PRN Reason Start Time Stop Time Status Last Admin Dose Admin Acetaminophen (Tylenol) 650 mg Q4H PRN ORAL T>100.5 01/23/18 18:15 02/21/18 18:00 Al Hydroxide/Mg Hydroxide (Mylanta II) 30 ml Q6H PRN ORAL dyspepsia 01/23/18 18:15 02/21/18 18:01 Albuterol/ Ipratropium (Albuterol/ Ipratropium) 3 ml Q4H PRN HHN Shortness of Breath 01/23/18 18:00 01/27/18 17:59 Amiodarone HCl (Cordarone) 400 mg DAILY ORAL 01/24/18 09:00 02/23/18 08:59 01/24/18 08:49 Aspirin (ASA) 81 mg DAILY ORAL 01/24/18 09:00 02/23/18 08:59 01/24/18 08:49 Clonidine HCl (Catapres Tab) 0.1 mg Q4H PRN ORAL For SBP>160 01/23/18 18:15 02/21/18 18:05 Clopidogrel Bisulfate (Plavix) 75 mg DAILY ORAL 01/24/18 09:00 02/23/18 08:59 01/24/18 08:49 Dextrose (Dextrose 50%) 25 ml STAT PRN IV Hypoglycemia 01/23/18 18:15 02/21/18 18:03 Dextrose (Dextrose 50%) 50 ml STAT PRN IV Hypoglycemia 01/23/18 18:15 02/21/18 18:03 Dextrose/Sodium Chloride 1,000 ml @ 50 mls/hr Q20H IV 01/23/18 18:00 02/22/18 17:59 01/24/18 13:13 Docusate Sodium (Colace) 100 mg TWICE A DAY ORAL 01/24/18 09:00 02/23/18 08:59 01/24/18 08:49 Heparin Sodium (Porcine) (Heparin 5000 units/ml) 5,000 units EVERY 12 HOURS SUBQ 01/23/18 21:00 02/21/18 20:59 01/24/18 08:51 Lorazepam (Ativan 2mg/ml 1ml) 0.5 mg Q4H PRN IV For Anxiety 01/23/18 18:15 01/29/18 18:01 Morphine Sulfate (Morphine Sulfate) 1 mg Q4H PRN IVP Severe Pain (Pain Scale 7-10) 01/23/18 18:15 01/29/18 18:02 Nitroglycerin (Ntg) 0.4 mg Q5M X 3 DOSES PRN SL Prn Chest Pain 01/23/18 17:15 02/21/18 18:01 Ondansetron HCl (Zofran) 4 mg Q6H PRN IVP Nausea & Vomiting 01/23/18 18:15 02/21/18 18:00 Polyethylene Glycol (Miralax) 17 gm HSPRN PRN ORAL Constipation 01/23/18 21:00 02/21/18 20:59 Promethazine HCl/ Codeine (Phenergan with Codeine) 5 ml Q4H PRN ORAL For Cough 01/23/18 18:15 02/21/18 18:02 Temazepam (Restoril) 15 mg HSPRN PRN ORAL Insomnia 01/23/18 21:00 01/29/18 20:59 Allergies: Coded Allergies: FUROSEMIDE (Unverified Allergy, Unknown, 12/07/17) ROS Limited/Unobtainable: No Constitutional: Reports: no symptoms HEENT: Reports: no symptoms Cardiovascular: Reports: no symptoms Respiratory: Reports: no symptoms Gastrointestinal/Abdominal: Reports: no symptoms Genitourinary: Reports: no symptoms Neurologic/Psychiatric: Reports: no symptoms Subjective 72 YO M admitted with syncope. Now elevated troponin and acute DVT. Await MRI brain. Cover for Macario Garland Objective Last Vital Signs Date Time Temp Pulse Resp B/P (MAP) Pulse Ox O2 Delivery O2 Flow Rate FiO2 01/24/18 12:00 97.5 74 18 123/58 99 Room Air 97.5 General Appearance: WD/WN, no apparent distress, alert EENT: PERRL/EOMI, normal ENT inspection, TMs normal Neck: non-tender, normal alignment, supple, normal inspection Cardiovascular: normal peripheral pulses, normal rate, regular rhythm, no gallop/murmur, no JVD Respiratory/Chest: chest wall non-tender, lungs clear, normal breath sounds, no accessory muscle use, respiratory distress Abdomen: normal bowel sounds, non tender, soft, no organomegaly, no mass Extremities: other - left hemiparesis 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, motor weakness Skin: normal pigmentation, warm/dry Laboratory Tests Test 01/24/18 05:20 White Blood Count 8.9 K/UL (4.8-10.8) Red Blood Count 3.03 M/UL (4.70-6.10) L Hemoglobin 9.0 G/DL (14.2-18.0) L Hematocrit 27.2 % (42.0-52.0) L Mean Corpuscular Volume 90 FL (80-99) Mean Corpuscular Hemoglobin 29.8 PG (27.0-31.0) Mean Corpuscular Hemoglobin Concent 33.1 G/DL (32.0-36.0) Red Cell Distribution Width 13.1 % (11.6-14.8) Platelet Count 207 K/UL (150-450) Mean Platelet Volume 8.3 FL (6.5-10.1) Neutrophils (%) (Auto) 76.2 % (45.0-75.0) H Lymphocytes (%) (Auto) 10.4 % (20.0-45.0) L Monocytes (%) (Auto) 7.7 % (1.0-10.0) Eosinophils (%) (Auto) 4.9 % (0.0-3.0) H Basophils (%) (Auto) 0.8 % (0.0-2.0) Sodium Level 137 MMOL/L (136-145) Potassium Level 3.0 MMOL/L (3.5-5.1) L Chloride Level 105 MMOL/L (98-107) Carbon Dioxide Level 25 MMOL/L (21-32) Anion Gap 7 mmol/L (5-15) Blood Urea Nitrogen 33 mg/dL (7-18) H Creatinine 2.3 MG/DL (0.55-1.30) H Estimat Glomerular Filtration Rate mL/min (>60) Glucose Level 160 MG/DL (74-106) H Calcium Level 7.5 MG/DL (8.5-10.1) L Troponin I 0.611 ng/mL (0.000-0.056) Intake and Output 01/23/18 01/24/18 19:00 07:00 Intake Total 1690 ml 240 ml Output Total 300 ml 450 ml Balance 1390 ml -210 ml Intake Oral 740 ml 240 ml IV Total 950 ml Output Urine Total 300 ml 450 ml Assessment/Plan Problem List: (1) Diabetes mellitus type II, uncontrolled Assessment & Plan: D/C D5 IVF (2) Left hemiparesis (3) Acute deep vein thrombosis (DVT) of left peroneal vein Assessment & Plan: Await hematology consult. Cont SQ heparin for now (4) Syncope Assessment & Plan: Await MRI brain. ?CVA vs [place]? See cardiology note. (5) NSTEMI (non-ST elevated myocardial infarction) (6) History of CVA (cerebrovascular accident) Assessment & Plan: Await MRI brain (7) Hypokalemia Assessment & Plan: Replace potassium (8) Hypertension Assessment & Plan: PRN clonidine (9) Pulmonary nodule Status: not improved Renzo Buckner MD Jan 24, 2018 16:31
[2018-01-24] MEDS: NS w/KCl 20mEq 1,000 ML IV SCH (18:05)
[2018-01-24 20:00] VITALS: BP 128/66
[2018-01-24] MEDS: Miralax 17gm pkt ORAL PRN (21:48)
[2018-01-25] VITALS: BP 127/66
[2018-01-25 04:00] VITALS: BP 127/66
[2018-01-25 08:00] VITALS: BP 131/66
--- NOTE | 2018-01-25 08:43 | Physician Query ---
--------- THIS DOCUMENT IS A PERMANENT PART OF THE MEDICAL RECORD --------- PLEASE COMPLETE DOCUMENT BEFORE SIGNING Dear Dr. Angel Date: 01/25/2018 Kier Pleater/CDS Name: Shamar Mendoza Kier Pleater/CDS Phone No.: [phone] Exercise your independent professional judgment when responding to the query. Questions asked do not imply a particular answer is desired or expected. We greatly appreciate your clarification on this issue. CLINICAL DOCUMENTATION STATES: Patient with history of CVA, left hemiparesis admitted with NSTEMI. CLINICAL FINDINGS SHOW: Total protein: 4.9, Albumin: 2.7 ---> 1.9, Lymphocytes: 14 -----> 7.9 Please select the most appropriate option: [] Mild [] Moderate [x] Protein/Calorie Malnutrition [] Protein Malnutrition >Serum albumin 2.8 to 3.4 g/dL or Pre-albumin 5 to 7 mg/dl (3) >Inadequate nutritional intake (1, 2, 3, 4) >NPO > 5 days >Weight loss: 5% in 1 month or 7.5% in 3 months or 10% in 6 months (1,3,4) >BMI 16 to 18.4 or Weight <90 of ideal body weight (1,2,3,4) [] Severe Malnutrition (Protein/Calorie) [] Severe Protein Malnutrition >Serum Albumin < 2.8 g/dL (1,2) >Lymphocytes < 1500/uL (2) >Inadequate nutritional intake3 , high stress e.g. major trauma, sepsis, pancreatitis, torres etc. >Decubitus ulcers (1,2) , skin breakdown(2), easy hair pluckability >Weight <80% standard for height (2) >Triceps skin fold <3 mm2 >Mid-arm muscle circumference <25 cm2 >Creatinine-height index <60% standard (2) [] Hypoalbuminemia [x] Emancipated w/ Malnutrition [] Kwashiorkor (rare in [place]) [] Marasmus [] Other [] Unable to determine [] Not Applicable Condition Present on Admission: [x] Yes [] No [ ] Unable to determine Please also document in your Progress Notes and/or Discharge Summary and indicate if the condition was present on admission. Maranda TRACEYD
[2018-01-25 08:46] LABS: EOSINOPHILS % (AUTO) 9.2 % (0.0-3.0); HEMATOCRIT 29.8 % (42.0-52.0); HEMOGLOBIN 9.6 G/DL (14.2-18.0); LYMPHOCYTES % (AUTO) 12.3 % (20.0-45.0); MEAN CORPUSCULAR VOLUME 90 FL (80-99); NEUTROPHILS % (AUTO) 70.4 % (45.0-75.0); PLATELET COUNT 212 K/UL (150-450); RED BLOOD COUNT 3.33 M/UL (4.70-6.10); RED CELL DISTRIBUTION WIDTH 13.4 % (11.6-14.8); WHITE BLOOD COUNT 8.2 K/UL (4.8-10.8)
[2018-01-25 09:01] LABS: ANION GAP 5 mmol/L (5-15); BLOOD UREA NITROGEN 27 mg/dL (7-18); CALCIUM 7.9 MG/DL (8.5-10.1); CARBON DIOXIDE 25 MMOL/L (21-32); CHLORIDE 107 MMOL/L (98-107); POTASSIUM 3.8 MMOL/L (3.5-5.1); SODIUM 137 MMOL/L (136-145)
[2018-01-25] MEDS ORDERED: D5 1/2NS 1000ml IV ONE (09:36)
[2018-01-25] MEDS: Docusate 100mg cap ORAL SCH ×2 (09:57→18:04)
[2018-01-25] MEDS: Amiodarone 200mg tab ORAL SCH (09:57)
[2018-01-25] MEDS: Aspirin Baby 81mg ORAL SCH (09:57)
[2018-01-25] MEDS: Heparin 5000 units/ml inj SUBQ SCH ×2 (09:59→21:11)
[2018-01-25 12:00] VITALS: BP 145/64
--- NOTE | 2018-01-25 12:17 | Pulmonology Progress Note ---
Assessment/Plan Problems: (1) Pulmonary nodule (2) NSTEMI (non-ST elevated myocardial infarction) (3) Paroxysmal atrial fibrillation (4) Ribs, multiple fractures (5) Hypertension (6) History of CVA (cerebrovascular accident) (7) Diabetes Assessment/Plan no new complains all reviewed f/u tropoinin Z-device has been removed Monitor BP hear rate control. transfer to med/surg if ok with cardiology Subjective ROS Limited/Unobtainable: No Constitutional: Reports: no symptoms HEENT: Repors: no symptoms Respiratory: Reports: no symptoms Cardiovascular: Reports: no symptoms Allergies: Coded Allergies: FUROSEMIDE (Unverified Allergy, Unknown, 12/07/17) Objective Last 24 Hour Vital Signs Date Time Temp Pulse Resp B/P (MAP) Pulse Ox O2 Delivery O2 Flow Rate FiO2 01/25/18 08:00 97.7 81 20 131/66 (87) 98 97.7 01/25/18 08:00 81 01/25/18 04:00 97.5 75 18 127/66 (86) 98 97.5 01/25/18 04:00 67 01/25/18 00:00 97.3 70 19 127/66 (86) 98 97.3 01/25/18 00:00 69 01/24/18 21:00 Room Air 01/24/18 20:00 68 01/24/18 20:00 97.8 70 19 128/66 (86) 98 97.8 01/24/18 16:00 97.6 92 18 101/54 (70) 97 97.6 01/24/18 16:00 74 Intake and Output 01/24/18 01/25/18 19:00 07:00 Intake Total 800 ml 50 ml Output Total 350 ml 400 ml Balance 450 ml -350 ml Intake Oral 750 ml IV Total 50 ml 50 ml Output Urine Total 350 ml 400 ml General Appearance: WD/WN HEENT: normocephalic, atraumatic Respiratory/Chest: chest wall non-tender, lungs clear Cardiovascular: normal peripheral pulses, normal rate Abdomen: normal bowel sounds, soft, non tender Genitourinary: normal external genitalia Neurologic/Psychiatric: tube skiver II-XII grossly normal Laboratory Tests 01/25/18 05:55: White Blood Count 8.2, Red Blood Count 3.33L, Hemoglobin 9.6L, Hematocrit 29.8L , Mean Corpuscular Volume 90, Mean Corpuscular Hemoglobin 28.9, Mean Corpuscular Hemoglobin Concent 32.3, Red Cell Distribution Width 13.4, Platelet Count 212, Mean Platelet Volume 8.5, Neutrophils (%) (Auto) 70.4, Lymphocytes (% ) (Auto) 12.3L, Monocytes (%) (Auto) 7.0, Eosinophils (%) (Auto) 9.2H, Basophils (%) (Auto) 1.0, Sodium Level 137, Potassium Level 3.8, Chloride Level 107, Carbon Dioxide Level 25, Anion Gap 5, Blood Urea Nitrogen 27H, Creatinine 2.0H, Estimat Glomerular Filtration Rate , Glucose Level 131H, Calcium Level 7.9L Current Medications Medications (Trade) Dose Ordered Sig/Kim Route PRN Reason Start Time Stop Time Status Last Admin Dose Admin Acetaminophen (Tylenol) 650 mg Q4H PRN ORAL T>100.5 01/23/18 18:15 02/21/18 18:00 01/24/18 21:48 Al Hydroxide/Mg Hydroxide (Mylanta II) 30 ml Q6H PRN ORAL dyspepsia 01/23/18 18:15 02/21/18 18:01 Albuterol/ Ipratropium (Albuterol/ Ipratropium) 3 ml Q4H PRN HHN Shortness of Breath 01/23/18 18:00 01/27/18 17:59 Amiodarone HCl (Cordarone) 400 mg DAILY ORAL 01/24/18 09:00 02/23/18 08:59 01/25/18 09:57 Aspirin (ASA) 81 mg DAILY ORAL 01/24/18 09:00 02/23/18 08:59 01/25/18 09:57 Clonidine HCl (Catapres Tab) 0.1 mg Q4H PRN ORAL For SBP>160 01/23/18 18:15 02/21/18 18:05 Clopidogrel Bisulfate (Plavix) 75 mg DAILY ORAL 01/24/18 09:00 02/23/18 08:59 01/25/18 09:57 Dextrose (Dextrose 50%) 25 ml STAT PRN IV Hypoglycemia 01/23/18 18:15 02/21/18 18:03 Dextrose (Dextrose 50%) 50 ml STAT PRN IV Hypoglycemia 01/23/18 18:15 02/21/18 18:03 Docusate Sodium (Colace) 100 mg TWICE A DAY ORAL 01/24/18 09:00 02/23/18 08:59 01/25/18 09:57 Heparin Sodium (Porcine) (Heparin 5000 units/ml) 5,000 units EVERY 12 HOURS SUBQ 01/23/18 21:00 02/21/18 20:59 01/25/18 09:59 Lorazepam (Ativan 2mg/ml 1ml) 0.5 mg Q4H PRN IV For Anxiety 01/23/18 18:15 01/29/18 18:01 Morphine Sulfate (Morphine Sulfate) 1 mg Q4H PRN IVP Severe Pain (Pain Scale 7-10) 01/23/18 18:15 01/29/18 18:02 Nitroglycerin (Ntg) 0.4 mg Q5M X 3 DOSES PRN SL Prn Chest Pain 01/23/18 17:15 02/21/18 18:01 Ondansetron HCl (Zofran) 4 mg Q6H PRN IVP Nausea & Vomiting 01/23/18 18:15 02/21/18 18:00 Polyethylene Glycol (Miralax) 17 gm HSPRN PRN ORAL Constipation 01/23/18 21:00 02/21/18 20:59 01/24/18 21:48 Promethazine HCl/ Codeine (Phenergan with Codeine) 5 ml Q4H PRN ORAL For Cough 01/23/18 18:15 02/21/18 18:02 Sodium Chloride 1,000 ml @ 50 mls/hr Q20H IV 01/24/18 17:00 02/23/18 16:59 01/24/18 18:05 Temazepam (Restoril) 15 mg HSPRN PRN ORAL Insomnia 01/23/18 21:00 01/29/18 20:59 Tania Angel MD Jan 25, 2018 12:17
[2018-01-25] MEDS: NS w/KCl 20mEq 1,000 ML IV SCH (14:00)
--- NOTE | 2018-01-25 14:31 | Internal Med Progress Note ---
Subjective Date of Service: Jan 25, 2018 Physician Name Renzo Buckner Attending Physician Reynaldo Garland MD Current Medications Medications (Trade) Dose Ordered Sig/Kim Route PRN Reason Start Time Stop Time Status Last Admin Dose Admin Acetaminophen (Tylenol) 650 mg Q4H PRN ORAL T>100.5 01/23/18 18:15 02/21/18 18:00 01/24/18 21:48 Al Hydroxide/Mg Hydroxide (Mylanta II) 30 ml Q6H PRN ORAL dyspepsia 01/23/18 18:15 02/21/18 18:01 Albuterol/ Ipratropium (Albuterol/ Ipratropium) 3 ml Q4H PRN HHN Shortness of Breath 01/23/18 18:00 01/27/18 17:59 Amiodarone HCl (Cordarone) 400 mg DAILY ORAL 01/24/18 09:00 02/23/18 08:59 01/25/18 09:57 Aspirin (ASA) 81 mg DAILY ORAL 01/24/18 09:00 02/23/18 08:59 01/25/18 09:57 Clonidine HCl (Catapres Tab) 0.1 mg Q4H PRN ORAL For SBP>160 01/23/18 18:15 02/21/18 18:05 Clopidogrel Bisulfate (Plavix) 75 mg DAILY ORAL 01/24/18 09:00 02/23/18 08:59 01/25/18 09:57 Dextrose (Dextrose 50%) 25 ml STAT PRN IV Hypoglycemia 01/23/18 18:15 02/21/18 18:03 Dextrose (Dextrose 50%) 50 ml STAT PRN IV Hypoglycemia 01/23/18 18:15 02/21/18 18:03 Docusate Sodium (Colace) 100 mg TWICE A DAY ORAL 01/24/18 09:00 02/23/18 08:59 01/25/18 09:57 Heparin Sodium (Porcine) (Heparin 5000 units/ml) 5,000 units EVERY 12 HOURS SUBQ 01/23/18 21:00 02/21/18 20:59 01/25/18 09:59 Lorazepam (Ativan 2mg/ml 1ml) 0.5 mg Q4H PRN IV For Anxiety 01/23/18 18:15 01/29/18 18:01 Morphine Sulfate (Morphine Sulfate) 1 mg Q4H PRN IVP Severe Pain (Pain Scale 7-10) 01/23/18 18:15 01/29/18 18:02 Nitroglycerin (Ntg) 0.4 mg Q5M X 3 DOSES PRN SL Prn Chest Pain 01/23/18 17:15 02/21/18 18:01 Ondansetron HCl (Zofran) 4 mg Q6H PRN IVP Nausea & Vomiting 01/23/18 18:15 02/21/18 18:00 Polyethylene Glycol (Miralax) 17 gm HSPRN PRN ORAL Constipation 01/23/18 21:00 02/21/18 20:59 01/24/18 21:48 Promethazine HCl/ Codeine (Phenergan with Codeine) 5 ml Q4H PRN ORAL For Cough 01/23/18 18:15 02/21/18 18:02 Sodium Chloride 1,000 ml @ 50 mls/hr Q20H IV 01/24/18 17:00 02/23/18 16:59 01/25/18 14:00 Temazepam (Restoril) 15 mg HSPRN PRN ORAL Insomnia 01/23/18 21:00 01/29/18 20:59 Allergies: Coded Allergies: FUROSEMIDE (Unverified Allergy, Unknown, 12/07/17) ROS Limited/Unobtainable: No Constitutional: Reports: no symptoms HEENT: Reports: no symptoms Cardiovascular: Reports: no symptoms Respiratory: Reports: no symptoms Gastrointestinal/Abdominal: Reports: no symptoms Genitourinary: Reports: no symptoms Neurologic/Psychiatric: Reports: no symptoms Subjective 72 YO M admitted with syncope. Now elevated troponin and acute DVT. Cover for Int Med-Dr Garland. Await MRI brain results and neurology consult. Objective Last Vital Signs Date Time Temp Pulse Resp B/P (MAP) Pulse Ox O2 Delivery O2 Flow Rate FiO2 01/25/18 12:00 97.9 80 22 145/64 (91) 99 97.9 01/24/18 21:00 Room Air Laboratory Tests Test 01/25/18 05:55 White Blood Count 8.2 K/UL (4.8-10.8) Red Blood Count 3.33 M/UL (4.70-6.10) L Hemoglobin 9.6 G/DL (14.2-18.0) L Hematocrit 29.8 % (42.0-52.0) L Mean Corpuscular Volume 90 FL (80-99) Mean Corpuscular Hemoglobin 28.9 PG (27.0-31.0) Mean Corpuscular Hemoglobin Concent 32.3 G/DL (32.0-36.0) Red Cell Distribution Width 13.4 % (11.6-14.8) Platelet Count 212 K/UL (150-450) Mean Platelet Volume 8.5 FL (6.5-10.1) Neutrophils (%) (Auto) 70.4 % (45.0-75.0) Lymphocytes (%) (Auto) 12.3 % (20.0-45.0) L Monocytes (%) (Auto) 7.0 % (1.0-10.0) Eosinophils (%) (Auto) 9.2 % (0.0-3.0) H Basophils (%) (Auto) 1.0 % (0.0-2.0) Sodium Level 137 MMOL/L (136-145) Potassium Level 3.8 MMOL/L (3.5-5.1) Chloride Level 107 MMOL/L (98-107) Carbon Dioxide Level 25 MMOL/L (21-32) Anion Gap 5 mmol/L (5-15) Blood Urea Nitrogen 27 mg/dL (7-18) H Creatinine 2.0 MG/DL (0.55-1.30) H Estimat Glomerular Filtration Rate mL/min (>60) Glucose Level 131 MG/DL (74-106) H Calcium Level 7.9 MG/DL (8.5-10.1) L Intake and Output 01/24/18 01/25/18 19:00 07:00 Intake Total 800 ml 50 ml Output Total 350 ml 400 ml Balance 450 ml -350 ml Intake Oral 750 ml IV Total 50 ml 50 ml Output Urine Total 350 ml 400 ml Objective General Appearance: WD/WN, no apparent distress, alert EENT: PERRL/EOMI, normal ENT inspection, TMs normal Neck: non-tender, normal alignment, supple, normal inspection Cardiovascular: normal peripheral pulses, normal rate, regular rhythm, no gallop/murmur, no JVD Respiratory/Chest: chest wall non-tender, lungs clear, normal breath sounds, no accessory muscle use, respiratory distress Abdomen: normal bowel sounds, non tender, soft, no organomegaly, no mass Extremities: other - left hemiparesis 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 Cont SQ heparin for now (4) Syncope Assessment & Plan: Await MRI brain. ?CVA vs [place]? See cardiology note. (5) NSTEMI (non-ST elevated myocardial infarction) (6) History of CVA (cerebrovascular accident) Assessment & Plan: Await MRI brain results. (7) Hypokalemia Assessment & Plan: Replace potassium (8) Hypertension Assessment & Plan: PRN clonidine (9) Pulmonary nodule Status: progressing Renzo Buckner MD Jan 25, 2018 14:31
--- NOTE | 2018-01-25 15:19 | Cardiac Electrophysiology PN ---
Assessment/Plan Assessment/Plan 1. Troponin elevation. The levels are flat at 0.9 and 0.9, most likely due to the patient's renal failure, the creatinine is 2.3. The patient does not have any chest pain either. Echocardiogram showed EF 55%. Continue aspirin and Plavix. 2. Paroxysmal Atrial fibrillation. In SR on aspirin and Plavix and Amiodarone. In Sinus haylie today 3. Status post recurrent syncope. MRI Brain done. Had Zio patch for more than 2 weeks and was removed. Dr Ita nicole in progress 4. History of cerebrovascular accident. 5. Renal failure, creatinine of 2.5. 6. Left leg acute DFT. Dr Rodriguez to evaluate the patient. Likely needs full anticoagulation. DW RN Subjective Subjective No CP or SOB. Had MRI Brain. In SR.Was in atrial fib earlier. RN at bedside Objective Last 24 Hour Vital Signs Date Time Temp Pulse Resp B/P (MAP) Pulse Ox O2 Delivery O2 Flow Rate FiO2 01/25/18 12:00 97.9 80 22 145/64 (91) 99 97.9 01/25/18 08:00 97.7 81 20 131/66 (87) 98 97.7 01/25/18 08:00 81 01/25/18 04:00 97.5 75 18 127/66 (86) 98 97.5 01/25/18 04:00 67 01/25/18 00:00 97.3 70 19 127/66 (86) 98 97.3 01/25/18 00:00 69 01/24/18 21:00 Room Air 01/24/18 20:00 68 01/24/18 20:00 97.8 70 19 128/66 (86) 98 97.8 01/24/18 16:00 97.6 92 18 101/54 (70) 97 97.6 01/24/18 16:00 74 Intake and Output 01/24/18 01/25/18 19:00 07:00 Intake Total 800 ml 50 ml Output Total 350 ml 400 ml Balance 450 ml -350 ml Intake Oral 750 ml IV Total 50 ml 50 ml Output Urine Total 350 ml 400 ml Laboratory Tests Test 01/25/18 05:55 White Blood Count 8.2 K/UL (4.8-10.8) Red Blood Count 3.33 M/UL (4.70-6.10) L Hemoglobin 9.6 G/DL (14.2-18.0) L Hematocrit 29.8 % (42.0-52.0) L Mean Corpuscular Volume 90 FL (80-99) Mean Corpuscular Hemoglobin 28.9 PG (27.0-31.0) Mean Corpuscular Hemoglobin Concent 32.3 G/DL (32.0-36.0) Red Cell Distribution Width 13.4 % (11.6-14.8) Platelet Count 212 K/UL (150-450) Mean Platelet Volume 8.5 FL (6.5-10.1) Neutrophils (%) (Auto) 70.4 % (45.0-75.0) Lymphocytes (%) (Auto) 12.3 % (20.0-45.0) L Monocytes (%) (Auto) 7.0 % (1.0-10.0) Eosinophils (%) (Auto) 9.2 % (0.0-3.0) H Basophils (%) (Auto) 1.0 % (0.0-2.0) Sodium Level 137 MMOL/L (136-145) Potassium Level 3.8 MMOL/L (3.5-5.1) Chloride Level 107 MMOL/L (98-107) Carbon Dioxide Level 25 MMOL/L (21-32) Anion Gap 5 mmol/L (5-15) Blood Urea Nitrogen 27 mg/dL (7-18) H Creatinine 2.0 MG/DL (0.55-1.30) H Estimat Glomerular Filtration Rate mL/min (>60) Glucose Level 131 MG/DL (74-106) H Calcium Level 7.9 MG/DL (8.5-10.1) L Objective HEAD AND NECK: No JVD. LUNGS: Clear. CARDIOVASCULAR: Regular S1 and S2 with no gallop or murmur. ABDOMEN: Soft. EXTREMITIES: No pitting edema. Abiodun Sands MD Jan 25, 2018 15:19
[2018-01-25 16:00] VITALS: BP 140/77
--- NOTE | 2018-01-25 16:09 | Consultation ---
Consult Note Consult Note [id number] job ID Hold off on anticoag given asymptomatic/symptomatic but distal dvt (no proven efficacy) for this situation. Raul Contreras MD Jan 25, 2018 16:09
[2018-01-25 20:00] VITALS: BP 140/75
[2018-01-25] MEDS: Miralax 17gm pkt ORAL PRN (21:15)
[2018-01-26] VITALS (7 sets, daily range): BP systolic 105–178; BP diastolic 45–97
--- NOTE | 2018-01-26 01:15 | Consultation ---
DATE OF CONSULTATION: 01/25/2018 NOTE: "POOR AUDIO QUALITY" HEMATOLOGY/ONCOLOGY CONSULTATION CONSULTING PHYSICIAN: Raul Contreras M.D. REQUESTING PHYSICIANS: Tania Angel M.D., and Dr. Reynaldo Garland M.D. REASON FOR CONSULTATION: DVT. ID: Dear Dr. Garland and Dr. Angel: The patient is a 72-year-old male with past medical history significant for type 2 diabetes, hypertension, history of CVA in 2008, history of angioplasty with balloon in 2016, who at this time presents to the hospital with NSTEMI, found to be on the floor, admitted with syncopal episode, rule out CVA. He was seen by Dr. Sands. The patient was noted to have left leg DVT. Left leg DVT is distal . The patient is currently on Plavix, amiodarone, . Troponin elevation was noted. The patient with renal failure as well. Again, Hematology service was consulted for further evaluation and treatment. PAST MEDICAL HISTORY: Type 2 diabetes, hypertension, and history of CVA in 2008. PAST SURGICAL HISTORY: Cardiac angioplasty with balloon in 2016. MEDICATIONS: Amiodarone, aspirin, Coreg, Plavix, lisinopril, Actos, and potassium chloride. ALLERGIES: Lasix. SOCIAL HISTORY: He is single. Lives alone. Denies any alcohol, tobacco, or illicit drug use. . PHYSICAL EXAMINATION: VITAL SIGNS: Reviewed. GENERAL: No distress. PULMONARY: Decreased breath sounds. CARDIOVASCULAR: Regular rate. No S3 or S4. ABDOMEN: Soft, nontender, and nondistended. EXTREMITIES: No cyanosis, swelling, or edema. LABORATORY DATA: Hemoglobin 9.6. INR of 1. BUN of 27 and creatinine of 2. Reviewed the patient's labs again. two months ago. ESR is elevated. ASSESSMENT AND RECOMMENDATIONS: 1. DVT of the distal peroneal vein on the left leg. Since this is a distal vein, we recommend to hold off on anticoagulation given this is a distal vein. He is asymptomatic at this time. 2. Pulmonary nodule. At this time, continue to closely monitor. 3. Anemia due to underlying chronic disease. Closely monitor for improvement. 4. Paroxysmal atrial fibrillation. Aspirin, Plavix, and amiodarone. 5. . Dr. Jean Baptiste to evaluate. I appreciate the consultation. . Raul Contreras M.D. DR: Juan JOB#: [id number] CC:
[2018-01-26] MEDS: Docusate 100mg cap ORAL SCH ×2 (08:38→17:25)
[2018-01-26] MEDS: Aspirin Baby 81mg ORAL SCH (08:38)
[2018-01-26] MEDS: Amiodarone 200mg tab ORAL SCH (08:38)
[2018-01-26] MEDS: NS w/KCl 20mEq 1,000 ML IV SCH (08:39)
[2018-01-26] MEDS: Heparin 5000 units/ml inj SUBQ SCH ×2 (08:39→22:18)
[2018-01-26 09:59] LABS: EOSINOPHILS % (AUTO) 8.7 % (0.0-3.0); HEMATOCRIT 26.3 % (42.0-52.0); HEMOGLOBIN 8.7 G/DL (14.2-18.0); LYMPHOCYTES % (AUTO) 12.5 % (20.0-45.0); MEAN CORPUSCULAR VOLUME 90 FL (80-99); MONOCYTES % (AUTO) 6.7 % (1.0-10.0); NEUTROPHILS % (AUTO) 70.1 % (45.0-75.0); PLATELET COUNT 236 K/UL (150-450); RED BLOOD COUNT 2.92 M/UL (4.70-6.10); RED CELL DISTRIBUTION WIDTH 13.7 % (11.6-14.8); WHITE BLOOD COUNT 6.9 K/UL (4.8-10.8)
[2018-01-26 10:26] LABS: ANION GAP 5 mmol/L (5-15); BLOOD UREA NITROGEN 23 mg/dL (7-18); CALCIUM 7.7 MG/DL (8.5-10.1); CARBON DIOXIDE 22 MMOL/L (21-32); CHLORIDE 107 MMOL/L (98-107); CREATININE 1.9 MG/DL (0.55-1.30); POTASSIUM 4.4 MMOL/L (3.5-5.1); SODIUM 134 MMOL/L (136-145)
--- NOTE | 2018-01-26 11:10 | General Progress Note ---
Assessment/Plan Status: stable Assessment/Plan # DVT of the distal peroneal vein on the left leg. --> Since this is a distal vein, we recommend to hold off on anticoagulation. --> Pt is asymptomatic at this time. # Pulmonary nodule. --> At this time, continue to closely monitor. --> Chest CT: Scattered areas of clustered nodular opacities in the right lung which may be infectious or inflammatory in etiology. Correlate clinically. Follow-up chest CT in 3-6 months recommended to assess for stability/resolution. # Anemia due to underlying chronic disease. --> Closely monitor for improvement. --> anemia w/u has been reveiwed, will trend daily --> Hgb goal >7 # Paroxysmal atrial fibrillation. --> Pt on aspirin, Plavix, and amiodarone. The time the note was entered does not necessarily correspond to the time the patient was seen. Subjective Date patient seen: Jan 26, 2018 Hematologic/Lymphatic: Reports: anemia Allergies: Coded Allergies: FUROSEMIDE (Unverified Allergy, Unknown, 12/07/17) All Systems: reviewed and negative except above Subjective PT not cleared to be downgraded to med surg. No acute events. Objective Last 24 Hour Vital Signs Date Time Temp Pulse Resp B/P (MAP) Pulse Ox O2 Delivery O2 Flow Rate FiO2 01/26/18 09:00 Room Air 01/26/18 08:00 97.6 85 20 178/97 (124) 96 97.6 01/26/18 08:00 85 01/26/18 04:00 71 01/26/18 04:00 97.5 74 18 140/78 (98) 99 97.5 01/26/18 00:00 97.9 71 18 147/76 (99) 98 97.9 01/26/18 00:00 75 01/25/18 21:00 Room Air 01/25/18 20:00 75 01/25/18 20:00 97.2 78 18 140/75 (96) 100 97.2 01/25/18 16:00 79 01/25/18 16:00 98.4 85 21 140/77 (98) 99 98.4 01/25/18 12:00 97.9 80 22 145/64 (91) 99 97.9 01/25/18 12:00 81 Intake and Output 01/25/18 01/26/18 19:00 07:00 Intake Total 1560 ml 600 ml Output Total 1700 ml 1000 ml Balance -140 ml -400 ml Intake Oral 960 ml IV Total 600 ml 600 ml Output Urine Total 1700 ml 1000 ml Laboratory Tests 01/26/18 09:25: White Blood Count 6.9, Red Blood Count 2.92L, Hemoglobin 8.7L, Hematocrit 26.3L , Mean Corpuscular Volume 90, Mean Corpuscular Hemoglobin 29.6, Mean Corpuscular Hemoglobin Concent 32.9, Red Cell Distribution Width 13.7, Platelet Count 236, Mean Platelet Volume 7.7, Neutrophils (%) (Auto) 70.1, Lymphocytes (% ) (Auto) 12.5L, Monocytes (%) (Auto) 6.7, Eosinophils (%) (Auto) 8.7H, Basophils (%) (Auto) 2.0, Sodium Level 134L, Potassium Level 4.4, Chloride Level 107, Carbon Dioxide Level 22, Anion Gap 5, Blood Urea Nitrogen 23H, Creatinine 1.9H, Estimat Glomerular Filtration Rate , Glucose Level 232#H, Calcium Level 7.7L Height (Feet): 5 Height (Inches): 5.00 Weight (Pounds): 147 General Appearance: no apparent distress EENT: PERRL/EOMI Neck: supple Cardiovascular: regularly irregular Respiratory/Chest: no respiratory distress Abdomen: no mass Raul Contreras MD Jan 26, 2018 11:10
--- NOTE | 2018-01-26 12:26 | Internal Med Progress Note ---
Subjective Date of Service: Jan 26, 2018 Physician Name Renzo Buckner Attending Physician Reynaldo Garland MD Current Medications Medications (Trade) Dose Ordered Sig/Kim Route PRN Reason Start Time Stop Time Status Last Admin Dose Admin Acetaminophen (Tylenol) 650 mg Q4H PRN ORAL T>100.5 01/23/18 18:15 02/21/18 18:00 01/24/18 21:48 Al Hydroxide/Mg Hydroxide (Mylanta II) 30 ml Q6H PRN ORAL dyspepsia 01/23/18 18:15 02/21/18 18:01 Albuterol/ Ipratropium (Albuterol/ Ipratropium) 3 ml Q4H PRN HHN Shortness of Breath 01/23/18 18:00 01/27/18 17:59 Amiodarone HCl (Cordarone) 400 mg DAILY ORAL 01/24/18 09:00 02/23/18 08:59 01/26/18 08:38 Aspirin (ASA) 81 mg DAILY ORAL 01/24/18 09:00 02/23/18 08:59 01/26/18 08:38 Clonidine HCl (Catapres Tab) 0.1 mg Q4H PRN ORAL For SBP>160 01/23/18 18:15 02/21/18 18:05 Clopidogrel Bisulfate (Plavix) 75 mg DAILY ORAL 01/24/18 09:00 02/23/18 08:59 01/26/18 08:38 Dextrose (Dextrose 50%) 25 ml STAT PRN IV Hypoglycemia 01/23/18 18:15 02/21/18 18:03 Dextrose (Dextrose 50%) 50 ml STAT PRN IV Hypoglycemia 01/23/18 18:15 02/21/18 18:03 Docusate Sodium (Colace) 100 mg TWICE A DAY ORAL 01/24/18 09:00 02/23/18 08:59 01/26/18 08:38 Heparin Sodium (Porcine) (Heparin 5000 units/ml) 5,000 units EVERY 12 HOURS SUBQ 01/23/18 21:00 02/21/18 20:59 01/26/18 08:39 Lorazepam (Ativan 2mg/ml 1ml) 0.5 mg Q4H PRN IV For Anxiety 01/23/18 18:15 01/29/18 18:01 Morphine Sulfate (Morphine Sulfate) 1 mg Q4H PRN IVP Severe Pain (Pain Scale 7-10) 01/23/18 18:15 01/29/18 18:02 Nitroglycerin (Ntg) 0.4 mg Q5M X 3 DOSES PRN SL Prn Chest Pain 01/23/18 17:15 02/21/18 18:01 Ondansetron HCl (Zofran) 4 mg Q6H PRN IVP Nausea & Vomiting 01/23/18 18:15 02/21/18 18:00 Polyethylene Glycol (Miralax) 17 gm HSPRN PRN ORAL Constipation 01/23/18 21:00 02/21/18 20:59 01/25/18 21:15 Promethazine HCl/ Codeine (Phenergan with Codeine) 5 ml Q4H PRN ORAL For Cough 01/23/18 18:15 02/21/18 18:02 Sodium Chloride 1,000 ml @ 50 mls/hr Q20H IV 01/24/18 17:00 02/23/18 16:59 01/26/18 08:39 Temazepam (Restoril) 15 mg HSPRN PRN ORAL Insomnia 01/23/18 21:00 01/29/18 20:59 Allergies: Coded Allergies: FUROSEMIDE (Unverified Allergy, Unknown, 12/07/17) ROS Limited/Unobtainable: No Constitutional: Reports: no symptoms HEENT: Reports: no symptoms Cardiovascular: Reports: no symptoms Respiratory: Reports: no symptoms Gastrointestinal/Abdominal: Reports: constipated Genitourinary: Reports: no symptoms Neurologic/Psychiatric: Reports: no symptoms Subjective 72 YO M admitted with syncope. Now elevated troponin and acute DVT. Cover for Int Med-Dr Garland. Await MRI brain results and neurology consult. Objective Last Vital Signs Date Time Temp Pulse Resp B/P (MAP) Pulse Ox O2 Delivery O2 Flow Rate FiO2 01/26/18 11:36 97.2 83 20 133/83 (100) 97 97.2 01/26/18 09:00 Room Air Laboratory Tests Test 01/26/18 09:25 White Blood Count 6.9 K/UL (4.8-10.8) Red Blood Count 2.92 M/UL (4.70-6.10) L Hemoglobin 8.7 G/DL (14.2-18.0) L Hematocrit 26.3 % (42.0-52.0) L Mean Corpuscular Volume 90 FL (80-99) Mean Corpuscular Hemoglobin 29.6 PG (27.0-31.0) Mean Corpuscular Hemoglobin Concent 32.9 G/DL (32.0-36.0) Red Cell Distribution Width 13.7 % (11.6-14.8) Platelet Count 236 K/UL (150-450) Mean Platelet Volume 7.7 FL (6.5-10.1) Neutrophils (%) (Auto) 70.1 % (45.0-75.0) Lymphocytes (%) (Auto) 12.5 % (20.0-45.0) L Monocytes (%) (Auto) 6.7 % (1.0-10.0) Eosinophils (%) (Auto) 8.7 % (0.0-3.0) H Basophils (%) (Auto) 2.0 % (0.0-2.0) Sodium Level 134 MMOL/L (136-145) L Potassium Level 4.4 MMOL/L (3.5-5.1) Chloride Level 107 MMOL/L (98-107) Carbon Dioxide Level 22 MMOL/L (21-32) Anion Gap 5 mmol/L (5-15) Blood Urea Nitrogen 23 mg/dL (7-18) H Creatinine 1.9 MG/DL (0.55-1.30) H Estimat Glomerular Filtration Rate mL/min (>60) Glucose Level 232 MG/DL (74-106) #H Calcium Level 7.7 MG/DL (8.5-10.1) L Intake and Output 01/25/18 01/26/18 19:00 07:00 Intake Total 1560 ml 600 ml Output Total 1700 ml 1000 ml Balance -140 ml -400 ml Intake Oral 960 ml IV Total 600 ml 600 ml Output Urine Total 1700 ml 1000 ml Objective General Appearance: WD/WN, no apparent distress, alert EENT: PERRL/EOMI, normal ENT inspection, TMs normal Neck: non-tender, normal alignment, supple, normal inspection Cardiovascular: normal peripheral pulses, normal rate, regular rhythm, no gallop/murmur, no JVD Respiratory/Chest: chest wall non-tender, lungs clear, normal breath sounds, no accessory muscle use, respiratory distress Abdomen: normal bowel sounds, non tender, soft, no organomegaly, no mass Extremities: other - left hemiparesis 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 Start novolog sliding scale. (2) Left hemiparesis (3) Acute deep vein thrombosis (DVT) of left peroneal vein Assessment & Plan: Await hematology consult. Cont SQ heparin for now (4) Syncope Assessment & Plan: Await MRI brain. ?CVA vs GA? See cardiology note. (5) NSTEMI (non-ST elevated myocardial infarction) (6) History of CVA (cerebrovascular accident) Assessment & Plan: Await MRI brain results. (7) Hypokalemia Assessment & Plan: Resolved (8) Hypertension Assessment & Plan: PRN clonidine (9) Pulmonary nodule (10) Constipation Assessment & Plan: Check KUB. Dulcolax supp prn. Magnesium citrate PRN Status: progressing Renzo Buckner MD Jan 26, 2018 12:26
[2018-01-26] MEDS ORDERED: Magnesium Citrate Liq Btl ORAL ONE (13:30)
--- NOTE | 2018-01-26 14:18 | Cardiac Electrophysiology PN ---
Assessment/Plan Assessment/Plan 1. Troponin elevation. The levels are flat at 0.9 and 0.9, most likely due to the patient's renal failure, the creatinine is 2.3. The patient does not have any chest pain either. Echocardiogram showed EF 55%. Continue aspirin and Plavix. 2. Paroxysmal Atrial fibrillation. In SR on aspirin, Plavix and Amiodarone. In Sinus 3. Status post recurrent syncope. MRI Brain done. Had Zio patch for more than 2 weeks and was removed. Dr Ita nicole in progress 4. History of cerebrovascular accident. 5. Renal failure, creatinine of 2.5. 6. Left leg acute DFT. Dr Rodriguez to evaluate the patient. MICAH RN DC tele Subjective Subjective No CP or SOB. Remained in SR. RN at bedside. Has constipation Objective Last 24 Hour Vital Signs Date Time Temp Pulse Resp B/P (MAP) Pulse Ox O2 Delivery O2 Flow Rate FiO2 01/26/18 12:01 83 01/26/18 11:36 97.2 83 20 133/83 (100) 97 97.2 01/26/18 09:00 Room Air 01/26/18 08:00 97.6 85 20 178/97 (124) 96 97.6 01/26/18 08:00 85 01/26/18 04:00 71 01/26/18 04:00 97.5 74 18 140/78 (98) 99 97.5 01/26/18 00:00 97.9 71 18 147/76 (99) 98 97.9 01/26/18 00:00 75 01/25/18 21:00 Room Air 01/25/18 20:00 75 01/25/18 20:00 97.2 78 18 140/75 (96) 100 97.2 01/25/18 16:00 79 01/25/18 16:00 98.4 85 21 140/77 (98) 99 98.4 Intake and Output 01/25/18 01/26/18 19:00 07:00 Intake Total 1560 ml 600 ml Output Total 1700 ml 1000 ml Balance -140 ml -400 ml Intake Oral 960 ml IV Total 600 ml 600 ml Output Urine Total 1700 ml 1000 ml Laboratory Tests Test 01/26/18 09:20 01/26/18 09:25 Hemoglobin A1c 6.3 % (4.3-6.0) H White Blood Count 6.9 K/UL (4.8-10.8) Red Blood Count 2.92 M/UL (4.70-6.10) L Hemoglobin 8.7 G/DL (14.2-18.0) L Hematocrit 26.3 % (42.0-52.0) L Mean Corpuscular Volume 90 FL (80-99) Mean Corpuscular Hemoglobin 29.6 PG (27.0-31.0) Mean Corpuscular Hemoglobin Concent 32.9 G/DL (32.0-36.0) Red Cell Distribution Width 13.7 % (11.6-14.8) Platelet Count 236 K/UL (150-450) Mean Platelet Volume 7.7 FL (6.5-10.1) Neutrophils (%) (Auto) 70.1 % (45.0-75.0) Lymphocytes (%) (Auto) 12.5 % (20.0-45.0) L Monocytes (%) (Auto) 6.7 % (1.0-10.0) Eosinophils (%) (Auto) 8.7 % (0.0-3.0) H Basophils (%) (Auto) 2.0 % (0.0-2.0) Sodium Level 134 MMOL/L (136-145) L Potassium Level 4.4 MMOL/L (3.5-5.1) Chloride Level 107 MMOL/L (98-107) Carbon Dioxide Level 22 MMOL/L (21-32) Anion Gap 5 mmol/L (5-15) Blood Urea Nitrogen 23 mg/dL (7-18) H Creatinine 1.9 MG/DL (0.55-1.30) H Estimat Glomerular Filtration Rate mL/min (>60) Glucose Level 232 MG/DL (74-106) #H Calcium Level 7.7 MG/DL (8.5-10.1) L Objective HEAD AND NECK: No JVD. LUNGS: Clear. CARDIOVASCULAR: Regular S1 and S2 with no gallop or murmur. ABDOMEN: Soft. EXTREMITIES: No pitting edema. Abiodun Sands MD Jan 26, 2018 14:18
[2018-01-26] MEDS ORDERED: Nitroglycerin Subl 0.4mg tab SL PRN (16:30)
[2018-01-26] MEDS ORDERED: NovoLOG Insulin Flexpen SUBQ SCH (16:30)
[2018-01-26] MEDS ORDERED: Mylanta II UD 30ml ORAL PRN (17:00)
[2018-01-26] MEDS ORDERED: Promethazine/Codeine 5ml UD ORAL PRN (17:00)
[2018-01-26] MEDS ORDERED: LORazepam Inj 2mg/ml 1ml IV PRN (17:00)
[2018-01-26] MEDS ORDERED: Morphine Sulfate 2mg/ml Inj(IV/IM USE ONLY) IVP PRN (17:00)
[2018-01-26] MEDS ORDERED: Albuterol/Ipratropium 3ml neb HHN PRN (17:00)
[2018-01-26] MEDS: NovoLOG Insulin Flexpen SUBQ SCH ×2 (17:27→22:19)
--- NOTE | 2018-01-26 18:11 | Pulmonology Progress Note ---
Assessment/Plan Problems: (1) Pulmonary nodule (2) NSTEMI (non-ST elevated myocardial infarction) (3) Paroxysmal atrial fibrillation (4) Ribs, multiple fractures (5) Hypertension (6) History of CVA (cerebrovascular accident) (7) Diabetes Assessment/Plan improving no new complains all reviewed f/u tropoinin Monitor BP hear rate control. transfer to med/surg if ok with cardiology Subjective ROS Limited/Unobtainable: No Constitutional: Reports: no symptoms HEENT: Repors: no symptoms Allergies: Coded Allergies: FUROSEMIDE (Unverified Allergy, Unknown, 12/07/17) Objective Last 24 Hour Vital Signs Date Time Temp Pulse Resp B/P (MAP) Pulse Ox O2 Delivery O2 Flow Rate FiO2 01/26/18 17:21 98.6 88 145/78 (100) 98.6 01/26/18 16:00 97.7 87 171/92 (118) 97.7 01/26/18 15:05 171/87 01/26/18 12:01 83 01/26/18 11:36 97.2 83 20 133/83 (100) 97 97.2 01/26/18 09:00 Room Air 01/26/18 08:00 97.6 85 20 178/97 (124) 96 97.6 01/26/18 08:00 85 01/26/18 04:00 71 01/26/18 04:00 97.5 74 18 140/78 (98) 99 97.5 01/26/18 00:00 97.9 71 18 147/76 (99) 98 97.9 01/26/18 00:00 75 01/25/18 21:00 Room Air 01/25/18 20:00 75 01/25/18 20:00 97.2 78 18 140/75 (96) 100 97.2 Intake and Output 01/25/18 01/26/18 19:00 07:00 Intake Total 1560 ml 600 ml Output Total 1700 ml 1000 ml Balance -140 ml -400 ml Intake Oral 960 ml IV Total 600 ml 600 ml Output Urine Total 1700 ml 1000 ml General Appearance: WD/WN HEENT: normocephalic Respiratory/Chest: chest wall non-tender Cardiovascular: normal peripheral pulses, normal rate Abdomen: normal bowel sounds, no organomegaly Skin: no rash Neurologic/Psychiatric: no motor/sensory deficits Laboratory Tests 01/26/18 09:20: Hemoglobin A1c 6.3H 01/26/18 09:25: White Blood Count 6.9, Red Blood Count 2.92L, Hemoglobin 8.7L, Hematocrit 26.3L , Mean Corpuscular Volume 90, Mean Corpuscular Hemoglobin 29.6, Mean Corpuscular Hemoglobin Concent 32.9, Red Cell Distribution Width 13.7, Platelet Count 236, Mean Platelet Volume 7.7, Neutrophils (%) (Auto) 70.1, Lymphocytes (% ) (Auto) 12.5L, Monocytes (%) (Auto) 6.7, Eosinophils (%) (Auto) 8.7H, Basophils (%) (Auto) 2.0, Sodium Level 134L, Potassium Level 4.4, Chloride Level 107, Carbon Dioxide Level 22, Anion Gap 5, Blood Urea Nitrogen 23H, Creatinine 1.9H, Estimat Glomerular Filtration Rate , Glucose Level 232#H, Calcium Level 7.7L Current Medications Medications (Trade) Dose Ordered Sig/Kim Route PRN Reason Start Time Stop Time Status Last Admin Dose Admin Acetaminophen (Tylenol) 650 mg Q4H PRN ORAL T>100.5 01/26/18 17:00 02/21/18 16:59 Al Hydroxide/Mg Hydroxide (Mylanta II) 30 ml Q6H PRN ORAL dyspepsia 01/26/18 17:00 02/21/18 16:59 Albuterol/ Ipratropium (Albuterol/ Ipratropium) 3 ml Q4H PRN HHN Shortness of Breath 01/26/18 17:00 01/27/18 16:59 Amiodarone HCl (Cordarone) 400 mg DAILY ORAL 01/27/18 09:00 02/23/18 08:59 Aspirin (ASA) 81 mg DAILY ORAL 01/27/18 09:00 02/23/18 08:59 Clonidine HCl (Catapres Tab) 0.1 mg Q4H PRN ORAL For SBP>160 01/26/18 18:15 02/21/18 18:05 Clopidogrel Bisulfate (Plavix) 75 mg DAILY ORAL 01/27/18 09:00 02/23/18 08:59 Dextrose (Dextrose 50%) 25 ml STAT PRN IV Hypoglycemia 01/26/18 17:00 02/25/18 16:59 Dextrose (Dextrose 50%) 50 ml STAT PRN IV Hypoglycemia 01/26/18 17:00 02/25/18 16:59 Docusate Sodium (Colace) 100 mg TWICE A DAY ORAL 01/26/18 18:00 02/23/18 08:59 01/26/18 17:25 Heparin Sodium (Porcine) (Heparin 5000 units/ml) 5,000 units EVERY 12 HOURS SUBQ 01/26/18 21:00 02/21/18 20:59 Insulin Aspart (NovoLOG) BEFORE MEALS AND HS SUBQ 01/26/18 17:30 02/25/18 17:29 01/26/18 17:27 Lorazepam (Ativan 2mg/ml 1ml) 0.5 mg Q4H PRN IV For Anxiety 01/26/18 17:00 01/29/18 16:59 Morphine Sulfate (Morphine Sulfate) 1 mg Q4H PRN IVP Severe Pain (Pain Scale 7-10) 01/26/18 17:00 01/29/18 16:59 Nitroglycerin (Ntg) 0.4 mg Q5M X 3 DOSES PRN SL Prn Chest Pain 01/26/18 16:30 02/21/18 18:01 Ondansetron HCl (Zofran) 4 mg Q6H PRN IVP Nausea & Vomiting 01/26/18 17:00 02/21/18 16:59 Polyethylene Glycol (Miralax) 17 gm HSPRN PRN ORAL Constipation 01/26/18 21:00 02/21/18 20:59 Promethazine HCl/ Codeine (Phenergan with Codeine) 5 ml Q4H PRN ORAL For Cough 01/26/18 17:00 02/21/18 16:59 Temazepam (Restoril) 15 mg HSPRN PRN ORAL Insomnia 01/26/18 21:00 01/29/18 20:59 Tania Angel MD Jan 26, 2018 18:11
[2018-01-26] MEDS ORDERED: Miralax 17gm pkt ORAL PRN (21:00)
[2018-01-27 00:11] VITALS: BP 110/52
[2018-01-27 04:17] VITALS: BP 134/66
[2018-01-27] MEDS: NovoLOG Insulin Flexpen SUBQ SCH ×4 (06:09→20:27)
[2018-01-27 07:36] LABS: BASOPHILS % (AUTO) 2.3 % (0.0-2.0); EOSINOPHILS % (AUTO) 9.1 % (0.0-3.0); HEMOGLOBIN 8.3 G/DL (14.2-18.0); LYMPHOCYTES % (AUTO) 19.3 % (20.0-45.0); MEAN CORPUSCULAR VOLUME 90 FL (80-99); MONOCYTES % (AUTO) 9.6 % (1.0-10.0); NEUTROPHILS % (AUTO) 59.7 % (45.0-75.0); PLATELET COUNT 258 K/UL (150-450); RED BLOOD COUNT 2.89 M/UL (4.70-6.10); RED CELL DISTRIBUTION WIDTH 13.5 % (11.6-14.8); WHITE BLOOD COUNT 6.2 K/UL (4.8-10.8)
[2018-01-27 07:58] LABS: ANION GAP 2 mmol/L (5-15); BLOOD UREA NITROGEN 17 mg/dL (7-18); CALCIUM 7.9 MG/DL (8.5-10.1); CARBON DIOXIDE 28 MMOL/L (21-32); CHLORIDE 108 MMOL/L (98-107); CREATININE 1.8 MG/DL (0.55-1.30); POTASSIUM 4.6 MMOL/L (3.5-5.1); SODIUM 138 MMOL/L (136-145)
[2018-01-27 08:00] VITALS: BP 121/67
[2018-01-27] MEDS: Docusate 100mg cap ORAL SCH ×2 (09:00→17:57)
[2018-01-27] MEDS ORDERED: Amiodarone 200mg tab ORAL SCH ×2 (09:00→13:00)
--- NOTE | 2018-01-27 09:18 | Consultation ---
Consult Note Consult Note DATE OF CONSULTATION: 01/27/2018 NEUROLOGY CONSULTATION CONSULTING PHYSICIAN: Evert Capps M.D. REQUESTING PHYSICIAN: Renzo Buckner M.D. HISTORY: Mr. Everardo Woodard is a 72-year-old, right-handed, gentleman, who does have a past history of hypertension, dyslipidemia, diabetes mellitus, congestive heart failure, a stroke with right upper extremity weakness a few years ago and since 2014 multiple episodes of loss of consciousness. As per the patient, the first episode of loss of consciousness was when he was at a gym sitting on a stationary bicycle and exercising when he apparently passed out and found himself on the floor with people looking over him. Since then, he has had approximately a dozen more episodes of loss of consciousness. On 12/07/2017, he was at a supermarket and standing in line to get his groceries and then apparently his vision darkened and he passed out. The supermarket hotel desk clerk was able to get him to sit on a chair and there was no injury. He was brought into the [facility] emergency room and evaluated there, but then he did not want to be admitted and left and went home. When he was at home, he was watching television sitting up on a sofa and then apparently woke up a few hours later and thinks that he may have again passed out. All his episodes of passing out are quite sudden and usually not preceded any symptoms, but on occasion he has felt a little dizzy and on one occasion his vision has darkened prior to these episodes. He was worked up for this problem and was sent home with a Zio-patch. At home he had another syncopal episode and fell down. He was apparently on the floor for the next 10 days. He was finally found by neighbours and brought to the hospital. He feels better now but his left upper extremity feels weak. PAST MEDICAL HISTORY: Significant for hypertension, dyslipidemia, diabetes mellitus, congestive heart failure, a stroke a few years ago and multiple episodes of loss of consciousness thought to be fainting spells. FAMILY HISTORY: Significant for high blood pressure and diabetes mellitus in other family members. PERSONAL HISTORY: Home: He lives alone. Work: He is retired now. Habits: He used to have a rare alcoholic drink in the past, but has not had a drink for quite some time now. He denies use of tobacco or illicit drugs. PRESENT MEDICATIONS: Atorvastatin, amiodarone, ceftriaxone, hydralazine, hydrochlorothiazide, aspirin, Plavix, Norvasc, insulin, Tylenol p.r.n., and carvedilol. PHYSICAL EXAMINATION: GENERAL: He is a well-developed, well-nourished, pleasant gentleman, lying in bed, in no acute distress. VITAL SIGNS: Pulse 66/minute, blood pressure 134/66 mmHg, respirations 18/minute, and temperature 98.0 degrees Fahrenheit. HEAD: Normocephalic and atraumatic. EENT: Examination benign. NECK: No neck rigidity was observed. NEUROLOGIC EXAMINATION: MENTAL STATUS EXAMINATION: He was awake and alert. He was oriented to person, place, and time. He was able to recall 3/3 words immediately after 1 minute and after 3 minutes on the second trial. He was able to remember presidents Trump through Nicholson senior. His mathematical skills were good. His visuospatial function was preserved. SPEECH: He had no dysarthria. LANGUAGE: He had no aphasia. CRANIAL NERVE EXAMINATION: II: The visual scales were intact to confrontation testing. III, IV & : External ocular movements were full and the pupils 3 mm in diameter, equal, round, regular, and reactive to light. V: He had normal facial sensations and the temporales, masseters, and pterygoids functioned normally. VII: He had a trace right VII central facial paresis. VIII: He was able to hear well bilaterally and had no nystagmus. IX: The palate moved symmetrically on phonation. X: He had no hoarseness of voice. XI: The sternocleidomastoids and trapezii functioned normally. XII: The tongue was in the midline without any fasciculations or atrophy. MOTOR SYSTEM: The tone was normal in all four extremities. Examination of muscle mass revealed no focal wasting. Examination of power revealed G 5/5 power except for G 4/5 power in the left finger flexors and G 3/5 power in the left finger extensors and wrist extensors. SENSORY EXAMINATION: He had intact sensations to pinprick, light touch, and graphesthesia. COORDINATION: He performed well on [id number] and [id number] testing. On Romberg test, he swayed, but did not fall to one side or the other. REFLEXES: Trace+ and bilaterally symmetrical at the biceps, triceps, brachioradialis, knees, and zero at both ankles. The plantar responses were flexor bilaterally. STANCE: He had a minimally wide-based, but stable stance. GAIT: He walked with a minimally wide-based, but stable gait. DIAGNOSTIC IMPRESSION: 1. Mr. Everardo Woodard is a 72-year-old, right-handed, gentleman, who does have a past history of hypertension, dyslipidemia, diabetes mellitus, congestive heart failure, cerebrovascular disease with a prior stroke a few years ago and multiple episodes of loss of consciousness thought to be fainting spells. He was hospitalized after he had another syncopal episode at home and fell down. He was apparently on the floor for the next 10 days. He was finally found by neighbours and brought to the hospital. He feels better now but his left upper extremity feels weak. 2. On neurological examination at this time, he does have a trace right VII central facial paresis, weakness in the left upper extremity, globally diminished deep tendon reflexes with loss of ankle jerks, a wide-based stance and a wide-based gait. 3. The CT scan of the brain without contrast done on 01/19/18 revealed "no evidence of acute intracranial hemorrhage, mass effect or cortical edema. Atrophy and nonspecific periventricular hypoattenuation suggestive of chronic ischemic microvascular changes." 4. Laboratory Data obtained thus far revealed that he is anemic with a hemoglobin of 8.3. His chemistry panel on admission revealed that his BUN is elevated to 40, creatinine elevated to 2.5, and his albumin was low at 2.7. His urinalysis reveals 1+ leukocyte esterase, 2-4 red blood cells, and 2-4 white blood cells per high-power field. 5. The patient's history and neurological examination are most compatible with multiple episodes of loss of consciousness most probably syncopal episodes. The most likely etiology for the syncopal episodes would be autonomic dysfunction. 6. He does have new left upper extremity weakness. It is most probably related to a recent right frontal infarct seen on the MRI of the brain. RECOMMENDATIONS: 1. Agree with management thus far. 2. Await results of cardiac monitoring. 3. Continue Plavix and statin. 4. PT/OT. Thank you for entrusting me with the care of Mr. Woodard. I shall follow him with you. Evert Capps M.D., M.S.P.H. EVERT CAPPS Jan 27, 2018 09:18
[2018-01-27] MEDS: Aspirin Baby 81mg ORAL SCH (10:31)
[2018-01-27] MEDS: Heparin 5000 units/ml inj SUBQ SCH ×2 (10:34→20:27)
--- NOTE | 2018-01-27 10:54 | Internal Med Progress Note ---
Subjective Date of Service: Jan 27, 2018 Physician Name Renzo Buckner Attending Physician Reynaldo Garland MD Current Medications Medications (Trade) Dose Ordered Sig/Kim Route PRN Reason Start Time Stop Time Status Last Admin Dose Admin Acetaminophen (Tylenol) 650 mg Q4H PRN ORAL T>100.5 01/26/18 17:00 02/21/18 16:59 Al Hydroxide/Mg Hydroxide (Mylanta II) 30 ml Q6H PRN ORAL dyspepsia 01/26/18 17:00 02/21/18 16:59 Albuterol/ Ipratropium (Albuterol/ Ipratropium) 3 ml Q4H PRN HHN Shortness of Breath 01/26/18 17:00 01/27/18 16:59 Amiodarone HCl (Cordarone) 400 mg DAILY ORAL 01/27/18 09:00 02/23/18 08:59 Aspirin (ASA) 81 mg DAILY ORAL 01/27/18 09:00 02/23/18 08:59 01/27/18 10:31 Clonidine HCl (Catapres Tab) 0.1 mg Q4H PRN ORAL For SBP>160 01/26/18 18:15 02/21/18 18:05 Clopidogrel Bisulfate (Plavix) 75 mg DAILY ORAL 01/27/18 09:00 02/23/18 08:59 01/27/18 10:32 Dextrose (Dextrose 50%) 25 ml STAT PRN IV Hypoglycemia 01/26/18 17:00 02/25/18 16:59 Dextrose (Dextrose 50%) 50 ml STAT PRN IV Hypoglycemia 01/26/18 17:00 02/25/18 16:59 Docusate Sodium (Colace) 100 mg TWICE A DAY ORAL 01/26/18 18:00 02/23/18 08:59 01/26/18 17:25 Heparin Sodium (Porcine) (Heparin 5000 units/ml) 5,000 units EVERY 12 HOURS SUBQ 01/26/18 21:00 02/21/18 20:59 01/27/18 10:34 Insulin Aspart (NovoLOG) BEFORE MEALS AND HS SUBQ 01/26/18 17:30 02/25/18 17:29 01/26/18 22:19 Lorazepam (Ativan 2mg/ml 1ml) 0.5 mg Q4H PRN IV For Anxiety 01/26/18 17:00 01/29/18 16:59 Morphine Sulfate (Morphine Sulfate) 1 mg Q4H PRN IVP Severe Pain (Pain Scale 7-10) 01/26/18 17:00 01/29/18 16:59 Nitroglycerin (Ntg) 0.4 mg Q5M X 3 DOSES PRN SL Prn Chest Pain 01/26/18 16:30 02/21/18 18:01 Ondansetron HCl (Zofran) 4 mg Q6H PRN IVP Nausea & Vomiting 01/26/18 17:00 02/21/18 16:59 Polyethylene Glycol (Miralax) 17 gm HSPRN PRN ORAL Constipation 01/26/18 21:00 02/21/18 20:59 Promethazine HCl/ Codeine (Phenergan with Codeine) 5 ml Q4H PRN ORAL For Cough 01/26/18 17:00 02/21/18 16:59 Temazepam (Restoril) 15 mg HSPRN PRN ORAL Insomnia 01/26/18 21:00 01/29/18 20:59 Allergies: Coded Allergies: FUROSEMIDE (Unverified Allergy, Unknown, 12/07/17) ROS Limited/Unobtainable: No Constitutional: Reports: no symptoms HEENT: Reports: no symptoms Cardiovascular: Reports: no symptoms Respiratory: Reports: no symptoms Gastrointestinal/Abdominal: Reports: no symptoms Genitourinary: Reports: no symptoms Neurologic/Psychiatric: Reports: no symptoms Subjective 72 YO M admitted with syncope. Now elevated troponin and acute DVT. Cover for Int Luis Daniel-Dr Garland. Await MRI brain results and neurology consult. Objective Last Vital Signs Date Time Temp Pulse Resp B/P (MAP) Pulse Ox O2 Delivery O2 Flow Rate FiO2 01/27/18 04:17 98.0 75 18 134/66 (88) 95 98.0 01/26/18 22:33 Room Air Laboratory Tests Test 01/27/18 05:45 White Blood Count 6.2 K/UL (4.8-10.8) Red Blood Count 2.89 M/UL (4.70-6.10) L Hemoglobin 8.3 G/DL (14.2-18.0) L Hematocrit 26.0 % (42.0-52.0) L Mean Corpuscular Volume 90 FL (80-99) Mean Corpuscular Hemoglobin 28.7 PG (27.0-31.0) Mean Corpuscular Hemoglobin Concent 31.8 G/DL (32.0-36.0) L Red Cell Distribution Width 13.5 % (11.6-14.8) Platelet Count 258 K/UL (150-450) Mean Platelet Volume 7.7 FL (6.5-10.1) Neutrophils (%) (Auto) 59.7 % (45.0-75.0) Lymphocytes (%) (Auto) 19.3 % (20.0-45.0) L Monocytes (%) (Auto) 9.6 % (1.0-10.0) Eosinophils (%) (Auto) 9.1 % (0.0-3.0) H Basophils (%) (Auto) 2.3 % (0.0-2.0) H Sodium Level 138 MMOL/L (136-145) Potassium Level 4.6 MMOL/L (3.5-5.1) Chloride Level 108 MMOL/L (98-107) H Carbon Dioxide Level 28 MMOL/L (21-32) Anion Gap 2 mmol/L (5-15) L Blood Urea Nitrogen 17 mg/dL (7-18) Creatinine 1.8 MG/DL (0.55-1.30) H Estimat Glomerular Filtration Rate mL/min (>60) Glucose Level 85 MG/DL (74-106) # Calcium Level 7.9 MG/DL (8.5-10.1) L Intake and Output 01/26/18 01/27/18 19:00 07:00 Intake Total 540 ml 360 ml Output Total 1000 ml 500 ml Balance -460 ml -140 ml Intake Oral 340 ml 360 ml IV Total 200 ml Output Urine Total 1000 ml 500 ml # Voids 1 # Bowel Movements 4 Objective General Appearance: WD/WN, no apparent distress, alert EENT: PERRL/EOMI, normal ENT inspection, TMs normal Neck: non-tender, normal alignment, supple, normal inspection Cardiovascular: normal peripheral pulses, normal rate, regular rhythm, no gallop/murmur, no JVD Respiratory/Chest: chest wall non-tender, lungs clear, normal breath sounds, no accessory muscle use, respiratory distress Abdomen: normal bowel sounds, non tender, soft, no organomegaly, no mass Extremities: other - left hemiparesis Neurologic: rn embedded II-XII grossly normal, motor weakness Skin: normal pigmentation, warm/dry Assessment/Plan Problem List: (1) Diabetes mellitus type II, uncontrolled Assessment & Plan: Elevated renal funct test-unable to start metformin. Start novolog sliding scale. (2) Left hemiparesis (3) Acute deep vein thrombosis (DVT) of left peroneal vein Assessment & Plan: No treatment - See hematology consult. Cont SQ heparin for now (4) Syncope Assessment & Plan: Await MRI brain result. ?CVA vs MN? See cardiology note. (5) NSTEMI (non-ST elevated myocardial infarction) (6) History of CVA (cerebrovascular accident) Assessment & Plan: Await MRI brain results. (7) Hypokalemia Assessment & Plan: Resolved (8) Hypertension Assessment & Plan: PRN clonidine (9) Pulmonary nodule (10) Constipation Assessment & Plan: Check KUB. Dulcolax supp prn. Magnesium citrate PRN Status: progressing Renzo Buckner MD Jan 27, 2018 10:54
--- NOTE | 2018-01-27 10:56 | Diagnostic Imaging Report ---
Indication: Syncope Technique: The head was imaged in a 1.5 Martha magnet. Sequences obtained include sagittal and axial T1 FLAIR, axial T2 fast spin echo with fat saturation, axial T2 FLAIR, diffusion and ADC map. Comparison: None Findings: There is moderate prominence of the sulci, ventricles, and basal cisterns consistent with atrophy. Moderate, nonspecific T2 hyperintensity noted within white matter. This may be due to chronic small vessel disease. There is no restricted diffusion. Singh-white differentiation is normal. There is no mass effect, midline shift, edema, or hemorrhage. There are no abnormal extra-axial or intra-axial fluid collections. The corpus callosum and sella are unremarkable. The brainstem and cerebellum are unremarkable. Bone marrow signal within the visualized osseous structures appears age appropriate and unremarkable otherwise. Impression: No acute intracranial findings. Moderate atrophy and evidence of chronic small vessel disease involving white matter tracts.
--- NOTE | 2018-01-27 12:10 | Consultation ---
History of Present Illness General Date patient seen: Jan 27, 2018 Chief Complaint: Generalized Weakness Present Illness HPI 72-year-old male with past medical history significant for type 2 diabetes, hypertension, history of CVA in 2008, history of angioplasty with balloon in 2016, who at this time presents to the hospital with NSTEMI, found to be on the floor, admitted with syncopal episode, rule out CVA. The pt has anxiety and insomnia. poor insight Allergies: Coded Allergies: FUROSEMIDE (Unverified Allergy, Unknown, 12/07/17) Medication History Scheduled Amiodarone Hcl* (Amiodarone Hcl*), 200 MG ORAL DAILY, (Reported) Aspirin* (Aspir 81*), 81 MG ORAL DAILY, (Reported) Carvedilol* (Carvedilol*), 25 MG ORAL EVERY 12 HOURS, (Reported) Clopidogrel Bisulfate* (Plavix*), 75 MG ORAL DAILY, (Reported) Docusate Sodium* (Colace*), 100 MG ORAL TWICE A DAY, (Reported) Heparin Sod (Porcine) (Heparin Sodium*), 5,000 UNITS SUBQ EVERY 12 HOURS, ( Reported) Insulin Regular, Human* (Novolin R*), 0 SUBQ .SLIDING SCALE, (Reported) Lisinopril* (Prinivil*), 20 MG ORAL BID, (Reported) Lovastatin (Lovastatin), 40 MG ORAL BEDTIME, (Reported) Pioglitazone Hcl* (Actos*), 15 MG ORAL DAILY, (Reported) Potassium Chloride* (K-Dur*), 10 MEQ ORAL TWICE A DAY, (Reported) Scheduled PRN Acetaminophen* (Acetaminophen 325MG Tablet*), 650 MG ORAL Q4H PRN for Mild Pain/ Temp > 100.5, (Reported) Al Hydroxide/mg Hydroxide (Mag-Al Liquid), 30 ML ORAL Q6HR PRN for INDIGESTION, (Reported) Clonidine Hcl* (Catapres*), 0.1 MG ORAL EVERY 4 HOURS PRN for ELEVATED SBP, ( Reported) Clonidine Hcl* (Catapres*), 0.1 MG ORAL EVERY 4 HOURS PRN for SBP>160, (Reported ) Lorazepam* (Ativan*), 0.5 MG ORAL Q4HR PRN for For Anxiety, (Reported) Morphine Sulfate (Morphine Sulfate), 1 MG IV Q4HR PRN for Pain Scale (6-10), ( Reported) Nitroglycerin (Nitrostat), 0.4 MG SL Q5M X3 DOSES PRN for CHEST PAIN, (Reported) Ondansetron* (Zofran*), 4 MG IV Q6H PRN for Nausea & Vomiting, (Reported) Polyethylene Glycol 3350* (Miralax*), 17 GM ORAL HS PRN for Constipation, ( Reported) Promethazine HCl/Codeine (Prometh-Codein 6.25-10 mg/5 ml), 5 ML PO Q4HR PRN for For Cough, (Reported) Temazepam* (Restoril*), 15 MG ORAL BEDTIME PRN for Insomnia, (Reported) Discontinued Medications Amiodarone Hcl* (Amiodarone Hcl*), 400 MG ORAL DAILY, (Reported) Discontinued Reason: Medication dose changed Patient History Limited by: medical condition History Provided By: Patient, Medical Record, PMD Healthcare decision maker N/A Resuscitation status Full Code Advanced Directive on File No Review of Systems Psychiatric: Reports: prior hx, anxiety, depressed feelings Physical Exam General Appearance: no apparent distress, alert Neurologic: oriented x 3, responsive, depressed affect Last 24 Hour Vital Signs Date Time Temp Pulse Resp B/P (MAP) Pulse Ox O2 Delivery O2 Flow Rate FiO2 01/27/18 08:00 97.3 81 20 121/67 (85) 99 97.3 01/27/18 04:17 98.0 75 18 134/66 (88) 95 98.0 01/27/18 00:11 98.2 79 18 110/52 (71) 96 98.2 01/26/18 22:33 Room Air 01/26/18 20:07 84 18 Room Air 01/26/18 20:00 98.3 86 18 105/45 (65) 96 98.3 01/26/18 17:21 98.6 88 145/78 (100) 98.6 01/26/18 16:40 Room Air 01/26/18 16:00 97.7 87 171/92 (118) 97.7 01/26/18 15:05 171/87 Intake and Output 01/26/18 01/27/18 19:00 07:00 Intake Total 540 ml 360 ml Output Total 1000 ml 500 ml Balance -460 ml -140 ml Intake Oral 340 ml 360 ml IV Total 200 ml Output Urine Total 1000 ml 500 ml # Voids 1 # Bowel Movements 4 Laboratory Tests Test 01/27/18 05:45 White Blood Count 6.2 K/UL (4.8-10.8) Red Blood Count 2.89 M/UL (4.70-6.10) L Hemoglobin 8.3 G/DL (14.2-18.0) L Hematocrit 26.0 % (42.0-52.0) L Mean Corpuscular Volume 90 FL (80-99) Mean Corpuscular Hemoglobin 28.7 PG (27.0-31.0) Mean Corpuscular Hemoglobin Concent 31.8 G/DL (32.0-36.0) L Red Cell Distribution Width 13.5 % (11.6-14.8) Platelet Count 258 K/UL (150-450) Mean Platelet Volume 7.7 FL (6.5-10.1) Neutrophils (%) (Auto) 59.7 % (45.0-75.0) Lymphocytes (%) (Auto) 19.3 % (20.0-45.0) L Monocytes (%) (Auto) 9.6 % (1.0-10.0) Eosinophils (%) (Auto) 9.1 % (0.0-3.0) H Basophils (%) (Auto) 2.3 % (0.0-2.0) H Sodium Level 138 MMOL/L (136-145) Potassium Level 4.6 MMOL/L (3.5-5.1) Chloride Level 108 MMOL/L (98-107) H Carbon Dioxide Level 28 MMOL/L (21-32) Anion Gap 2 mmol/L (5-15) L Blood Urea Nitrogen 17 mg/dL (7-18) Creatinine 1.8 MG/DL (0.55-1.30) H Estimat Glomerular Filtration Rate mL/min (>60) Glucose Level 85 MG/DL (74-106) # Calcium Level 7.9 MG/DL (8.5-10.1) L Height (Feet): 5 Height (Inches): 5.00 Weight (Pounds): 148 Medications Current Medications Medications (Trade) Dose Ordered Sig/Kim Route PRN Reason Start Time Stop Time Status Last Admin Dose Admin Acetaminophen (Tylenol) 650 mg Q4H PRN ORAL T>100.5 01/26/18 17:00 8/3/18 16:59 Al Hydroxide/Mg Hydroxide (Mylanta II) 30 ml Q6H PRN ORAL dyspepsia 01/26/18 17:00 02/21/18 16:59 Albuterol/ Ipratropium (Albuterol/ Ipratropium) 3 ml Q4H PRN HHN Shortness of Breath 01/26/18 17:00 01/27/18 16:59 Amiodarone HCl (Cordarone) 200 mg DAILY ORAL 01/28/18 09:00 02/23/18 08:59 UNV Aspirin (ASA) 81 mg DAILY ORAL 01/27/18 09:00 02/23/18 08:59 01/27/18 10:31 Clonidine HCl (Catapres Tab) 0.1 mg Q4H PRN ORAL For SBP>160 01/26/18 18:15 02/21/18 18:05 Clopidogrel Bisulfate (Plavix) 75 mg DAILY ORAL 01/27/18 09:00 02/23/18 08:59 01/27/18 10:32 Dextrose (Dextrose 50%) 25 ml STAT PRN IV Hypoglycemia 01/26/18 17:00 02/25/18 16:59 Dextrose (Dextrose 50%) 50 ml STAT PRN IV Hypoglycemia 01/26/18 17:00 02/25/18 16:59 Docusate Sodium (Colace) 100 mg TWICE A DAY ORAL 01/26/18 18:00 02/23/18 08:59 01/26/18 17:25 Heparin Sodium (Porcine) (Heparin 5000 units/ml) 5,000 units EVERY 12 HOURS SUBQ 01/26/18 21:00 02/21/18 20:59 01/27/18 10:34 Insulin Aspart (NovoLOG) BEFORE MEALS AND HS SUBQ 01/26/18 17:30 02/25/18 17:29 01/27/18 12:03 Lorazepam (Ativan 2mg/ml 1ml) 0.5 mg Q4H PRN IV For Anxiety 01/26/18 17:00 01/29/18 16:59 Morphine Sulfate (Morphine Sulfate) 1 mg Q4H PRN IVP Severe Pain (Pain Scale 7-10) 01/26/18 17:00 01/29/18 16:59 Nitroglycerin (Ntg) 0.4 mg Q5M X 3 DOSES PRN SL Prn Chest Pain 01/26/18 16:30 02/21/18 18:01 Ondansetron HCl (Zofran) 4 mg Q6H PRN IVP Nausea & Vomiting 01/26/18 17:00 02/21/18 16:59 Polyethylene Glycol (Miralax) 17 gm HSPRN PRN ORAL Constipation 01/26/18 21:00 02/21/18 20:59 Promethazine HCl/ Codeine (Phenergan with Codeine) 5 ml Q4H PRN ORAL For Cough 01/26/18 17:00 02/21/18 16:59 Temazepam (Restoril) 15 mg HSPRN PRN ORAL Insomnia 01/26/18 21:00 01/29/18 20:59 Assessment/Plan Status: stable Assessment/Plan Anxiety d/o Insomnia ativan prn provided brea/Kiera Olea MD Jan 27, 2018 12:10
--- NOTE | 2018-01-27 12:43 | Diagnostic Imaging Report ---
Indication: Abdominal pain Comparison: None Single view of the abdomen obtained Findings: There is moderate fecal retention within the rectal wall. Villanueva catheter is present. Bowel gas pattern is nonspecific. IMPRESSION: Moderate fecal retention in this rectosigmoid.
--- NOTE | 2018-01-27 13:18 | General Progress Note ---
Assessment/Plan Status: stable Assessment/Plan # DVT of the distal peroneal vein on the left leg. --> Since this is a distal vein, we recommend to hold off on anticoagulation. --> Pt is asymptomatic at this time. # Pulmonary nodule. --> At this time, continue to closely monitor. --> Chest CT: Scattered areas of clustered nodular opacities in the right lung which may be infectious or inflammatory in etiology. Correlate clinically. Follow-up chest CT in 3-6 months recommended to assess for stability/resolution. # Anemia due to underlying chronic disease. --> Closely monitor for improvement. --> anemia w/u has been reveiwed, will trend daily --> Hgb goal >7 # Paroxysmal atrial fibrillation. --> Pt on aspirin, Plavix, and amiodarone. The time the note was entered does not necessarily correspond to the time the patient was seen. Subjective Date patient seen: Jan 27, 2018 Hematologic/Lymphatic: Reports: anemia Allergies: Coded Allergies: FUROSEMIDE (Unverified Allergy, Unknown, 12/07/17) All Systems: reviewed and negative except above Subjective PT downgraded to med surg. No acute events. Brain MRI results pending. Objective Last 24 Hour Vital Signs Date Time Temp Pulse Resp B/P (MAP) Pulse Ox O2 Delivery O2 Flow Rate FiO2 01/27/18 08:00 97.3 81 20 121/67 (85) 99 97.3 01/27/18 04:17 98.0 75 18 134/66 (88) 95 98.0 01/27/18 00:11 98.2 79 18 110/52 (71) 96 98.2 01/26/18 22:33 Room Air 01/26/18 20:07 84 18 Room Air 01/26/18 20:00 98.3 86 18 105/45 (65) 96 98.3 01/26/18 17:21 98.6 88 145/78 (100) 98.6 01/26/18 16:40 Room Air 01/26/18 16:00 97.7 87 171/92 (118) 97.7 01/26/18 15:05 171/87 Intake and Output 01/26/18 01/27/18 19:00 07:00 Intake Total 540 ml 360 ml Output Total 1000 ml 500 ml Balance -460 ml -140 ml Intake Oral 340 ml 360 ml IV Total 200 ml Output Urine Total 1000 ml 500 ml # Voids 1 # Bowel Movements 4 Laboratory Tests 01/27/18 05:45: White Blood Count 6.2, Red Blood Count 2.89L, Hemoglobin 8.3L, Hematocrit 26.0L , Mean Corpuscular Volume 90, Mean Corpuscular Hemoglobin 28.7, Mean Corpuscular Hemoglobin Concent 31.8L, Red Cell Distribution Width 13.5, Platelet Count 258, Mean Platelet Volume 7.7, Neutrophils (%) (Auto) 59.7, Lymphocytes (%) (Auto) 19.3L, Monocytes (%) (Auto) 9.6, Eosinophils (%) (Auto) 9.1H, Basophils (%) (Auto) 2.3H, Sodium Level 138, Potassium Level 4.6, Chloride Level 108H, Carbon Dioxide Level 28, Anion Gap 2L, Blood Urea Nitrogen 17, Creatinine 1.8H, Estimat Glomerular Filtration Rate , Glucose Level 85#, Calcium Level 7.9L Height (Feet): 5 Height (Inches): 5.00 Weight (Pounds): 148 General Appearance: no apparent distress EENT: PERRL/EOMI Neck: normal alignment Cardiovascular: normal peripheral pulses Respiratory/Chest: normal breath sounds, no respiratory distress Abdomen: no mass Raul Contreras MD Jan 27, 2018 13:18
--- NOTE | 2018-01-27 14:37 | Pulmonology Progress Note ---
Assessment/Plan Problems: (1) Pulmonary nodule (2) NSTEMI (non-ST elevated myocardial infarction) (3) Paroxysmal atrial fibrillation (4) Ribs, multiple fractures (5) Hypertension (6) History of CVA (cerebrovascular accident) (7) Diabetes Assessment/Plan no new complains all reviewed f/u tropoinin Z-device has been removed Monitor BP hear rate control. transfer to med/surg if ok with cardiology dc planning Subjective ROS Limited/Unobtainable: No Allergies: Coded Allergies: FUROSEMIDE (Unverified Allergy, Unknown, 12/07/17) Objective Last 24 Hour Vital Signs Date Time Temp Pulse Resp B/P (MAP) Pulse Ox O2 Delivery O2 Flow Rate FiO2 01/27/18 09:00 Room Air 01/27/18 08:00 97.3 81 20 121/67 (85) 99 97.3 01/27/18 04:17 98.0 75 18 134/66 (88) 95 98.0 01/27/18 00:11 98.2 79 18 110/52 (71) 96 98.2 01/26/18 22:33 Room Air 01/26/18 20:07 84 18 Room Air 01/26/18 20:00 98.3 86 18 105/45 (65) 96 98.3 01/26/18 17:21 98.6 88 145/78 (100) 98.6 01/26/18 16:40 Room Air 01/26/18 16:00 97.7 87 171/92 (118) 97.7 01/26/18 15:05 171/87 Intake and Output 01/26/18 01/27/18 19:00 07:00 Intake Total 540 ml 360 ml Output Total 1000 ml 500 ml Balance -460 ml -140 ml Intake Oral 340 ml 360 ml IV Total 200 ml Output Urine Total 1000 ml 500 ml # Voids 1 # Bowel Movements 4 General Appearance: WD/WN HEENT: normocephalic, anicteric Respiratory/Chest: chest wall non-tender, lungs clear Cardiovascular: normal peripheral pulses, normal rate Abdomen: normal bowel sounds, soft, non tender Genitourinary: normal external genitalia Extremities: no clubbing Neurologic/Psychiatric: no motor/sensory deficits, oriented x 3 Laboratory Tests 01/27/18 05:45: White Blood Count 6.2, Red Blood Count 2.89L, Hemoglobin 8.3L, Hematocrit 26.0L , Mean Corpuscular Volume 90, Mean Corpuscular Hemoglobin 28.7, Mean Corpuscular Hemoglobin Concent 31.8L, Red Cell Distribution Width 13.5, Platelet Count 258, Mean Platelet Volume 7.7, Neutrophils (%) (Auto) 59.7, Lymphocytes (%) (Auto) 19.3L, Monocytes (%) (Auto) 9.6, Eosinophils (%) (Auto) 9.1H, Basophils (%) (Auto) 2.3H, Sodium Level 138, Potassium Level 4.6, Chloride Level 108H, Carbon Dioxide Level 28, Anion Gap 2L, Blood Urea Nitrogen 17, Creatinine 1.8H, Estimat Glomerular Filtration Rate , Glucose Level 85#, Calcium Level 7.9L Current Medications Medications (Trade) Dose Ordered Sig/Kim Route PRN Reason Start Time Stop Time Status Last Admin Dose Admin Acetaminophen (Tylenol) 650 mg Q4H PRN ORAL T>100.5 01/26/18 17:00 02/21/18 16:59 Al Hydroxide/Mg Hydroxide (Mylanta II) 30 ml Q6H PRN ORAL dyspepsia 01/26/18 17:00 02/21/18 16:59 Albuterol/ Ipratropium (Albuterol/ Ipratropium) 3 ml Q4H PRN HHN Shortness of Breath 01/26/18 17:00 01/27/18 16:59 Amiodarone HCl (Cordarone) 200 mg DAILY ORAL 01/28/18 09:00 02/27/18 08:59 Aspirin (ASA) 81 mg DAILY ORAL 01/27/18 09:00 02/23/18 08:59 01/27/18 10:31 Clonidine HCl (Catapres Tab) 0.1 mg Q4H PRN ORAL For SBP>160 01/26/18 18:15 02/21/18 18:05 Clopidogrel Bisulfate (Plavix) 75 mg DAILY ORAL 01/27/18 09:00 02/23/18 08:59 01/27/18 10:32 Dextrose (Dextrose 50%) 25 ml STAT PRN IV Hypoglycemia 01/26/18 17:00 02/25/18 16:59 Dextrose (Dextrose 50%) 50 ml STAT PRN IV Hypoglycemia 01/26/18 17:00 02/25/18 16:59 Docusate Sodium (Colace) 100 mg TWICE A DAY ORAL 01/26/18 18:00 02/23/18 08:59 01/26/18 17:25 Heparin Sodium (Porcine) (Heparin 5000 units/ml) 5,000 units EVERY 12 HOURS SUBQ 01/26/18 21:00 02/21/18 20:59 01/27/18 10:34 Insulin Aspart (NovoLOG) BEFORE MEALS AND HS SUBQ 01/26/18 17:30 02/25/18 17:29 01/27/18 12:03 Lorazepam (Ativan 2mg/ml 1ml) 0.5 mg Q4H PRN IV For Anxiety 01/26/18 17:00 01/29/18 16:59 Morphine Sulfate (Morphine Sulfate) 1 mg Q4H PRN IVP Severe Pain (Pain Scale 7-10) 01/26/18 17:00 01/29/18 16:59 Nitroglycerin (Ntg) 0.4 mg Q5M X 3 DOSES PRN SL Prn Chest Pain 01/26/18 16:30 02/21/18 18:01 Ondansetron HCl (Zofran) 4 mg Q6H PRN IVP Nausea & Vomiting 01/26/18 17:00 02/21/18 16:59 Polyethylene Glycol (Miralax) 17 gm HSPRN PRN ORAL Constipation 01/26/18 21:00 02/21/18 20:59 Promethazine HCl/ Codeine (Phenergan with Codeine) 5 ml Q4H PRN ORAL For Cough 01/26/18 17:00 02/21/18 16:59 Temazepam (Restoril) 15 mg HSPRN PRN ORAL Insomnia 01/26/18 21:00 01/29/18 20:59 Tania Angel MD Jan 27, 2018 14:37
--- NOTE | 2018-01-27 14:59 | Cardiac Electrophysiology PN ---
Assessment/Plan Assessment/Plan 1. Troponin elevation. The levels are flat at 0.9 and 0.9, most likely due to the patient's renal failure, the creatinine is 2.3. The patient does not have any chest pain either. Echocardiogram showed EF 55%. Continue aspirin and Plavix. 2. Paroxysmal Atrial fibrillation. In SR on aspirin, Plavix and Amiodarone. 3. Status post recurrent syncope. MRI Brain done. Had Zio patch for more than 2 weeks and was removed awaiting data interpretation. 4. History of cerebrovascular accident. 5. Renal failure, creatinine of 2.5. 6. Left leg acute DFT. F/U Dr Michael OBRIEN RN Subjective Subjective No CP or SOB. Remained in SR. RN at bedside. Transferred to nonmonitored bed. Objective Last 24 Hour Vital Signs Date Time Temp Pulse Resp B/P (MAP) Pulse Ox O2 Delivery O2 Flow Rate FiO2 01/27/18 09:00 Room Air 01/27/18 08:00 97.3 81 20 121/67 (85) 99 97.3 01/27/18 04:17 98.0 75 18 134/66 (88) 95 98.0 01/27/18 00:11 98.2 79 18 110/52 (71) 96 98.2 01/26/18 22:33 Room Air 01/26/18 20:07 84 18 Room Air 01/26/18 20:00 98.3 86 18 105/45 (65) 96 98.3 01/26/18 17:21 98.6 88 145/78 (100) 98.6 01/26/18 16:40 Room Air 01/26/18 16:00 97.7 87 171/92 (118) 97.7 01/26/18 15:05 171/87 Intake and Output 01/26/18 01/27/18 19:00 07:00 Intake Total 540 ml 360 ml Output Total 1000 ml 500 ml Balance -460 ml -140 ml Intake Oral 340 ml 360 ml IV Total 200 ml Output Urine Total 1000 ml 500 ml # Voids 1 # Bowel Movements 4 Laboratory Tests Test 01/27/18 05:45 White Blood Count 6.2 K/UL (4.8-10.8) Red Blood Count 2.89 M/UL (4.70-6.10) L Hemoglobin 8.3 G/DL (14.2-18.0) L Hematocrit 26.0 % (42.0-52.0) L Mean Corpuscular Volume 90 FL (80-99) Mean Corpuscular Hemoglobin 28.7 PG (27.0-31.0) Mean Corpuscular Hemoglobin Concent 31.8 G/DL (32.0-36.0) L Red Cell Distribution Width 13.5 % (11.6-14.8) Platelet Count 258 K/UL (150-450) Mean Platelet Volume 7.7 FL (6.5-10.1) Neutrophils (%) (Auto) 59.7 % (45.0-75.0) Lymphocytes (%) (Auto) 19.3 % (20.0-45.0) L Monocytes (%) (Auto) 9.6 % (1.0-10.0) Eosinophils (%) (Auto) 9.1 % (0.0-3.0) H Basophils (%) (Auto) 2.3 % (0.0-2.0) H Sodium Level 138 MMOL/L (136-145) Potassium Level 4.6 MMOL/L (3.5-5.1) Chloride Level 108 MMOL/L (98-107) H Carbon Dioxide Level 28 MMOL/L (21-32) Anion Gap 2 mmol/L (5-15) L Blood Urea Nitrogen 17 mg/dL (7-18) Creatinine 1.8 MG/DL (0.55-1.30) H Estimat Glomerular Filtration Rate mL/min (>60) Glucose Level 85 MG/DL (74-106) # Calcium Level 7.9 MG/DL (8.5-10.1) L Objective HEAD AND NECK: No JVD. LUNGS: Clear. CARDIOVASCULAR: Regular S1 and S2 with no gallop or murmur. ABDOMEN: Soft. EXTREMITIES: No pitting edema. Abiodun Sands MD Jan 27, 2018 14:59
[2018-01-27 16:00] VITALS: BP 147/74
[2018-01-27] MEDS: Amiodarone 200mg tab ORAL SCH (16:28)
[2018-01-27 20:00] VITALS: BP 133/63
[2018-01-28] VITALS: BP 158/79
[2018-01-28 04:00] VITALS: BP 149/84
[2018-01-28] MEDS: NovoLOG Insulin Flexpen SUBQ SCH ×3 (06:00→16:44)
[2018-01-28 06:47] LABS: BASOPHILS % (AUTO) 2.4 % (0.0-2.0); EOSINOPHILS % (AUTO) 9.8 % (0.0-3.0); HEMATOCRIT 25.6 % (42.0-52.0); HEMOGLOBIN 8.4 G/DL (14.2-18.0); LYMPHOCYTES % (AUTO) 24.5 % (20.0-45.0); MEAN CORPUSCULAR VOLUME 90 FL (80-99); MONOCYTES % (AUTO) 10.6 % (1.0-10.0); NEUTROPHILS % (AUTO) 52.8 % (45.0-75.0); PLATELET COUNT 283 K/UL (150-450); RED BLOOD COUNT 2.83 M/UL (4.70-6.10); RED CELL DISTRIBUTION WIDTH 14.2 % (11.6-14.8); WHITE BLOOD COUNT 5.9 K/UL (4.8-10.8)
[2018-01-28 06:56] LABS: ANION GAP 6 mmol/L (5-15); BLOOD UREA NITROGEN 19 mg/dL (7-18); CALCIUM 7.9 MG/DL (8.5-10.1); CARBON DIOXIDE 28 MMOL/L (21-32); CHLORIDE 104 MMOL/L (98-107); CREATININE 1.8 MG/DL (0.55-1.30); POTASSIUM 4.6 MMOL/L (3.5-5.1); SODIUM 137 MMOL/L (136-145)
[2018-01-28 08:00] VITALS: BP 141/72
[2018-01-28] MEDS: Aspirin Baby 81mg ORAL SCH (08:46)
[2018-01-28] MEDS: Amiodarone 200mg tab ORAL SCH (08:47)
[2018-01-28] MEDS: Heparin 5000 units/ml inj SUBQ SCH (08:49)
[2018-01-28] MEDS ORDERED: Amiodarone 200mg tab ORAL SCH ×2 (09:00)
[2018-01-28] MEDS: Docusate 100mg cap ORAL SCH ×2 (09:00→18:00)
--- NOTE | 2018-01-28 13:35 | Pulmonology Progress Note ---
Assessment/Plan Problems: (1) Pulmonary nodule (2) NSTEMI (non-ST elevated myocardial infarction) (3) Paroxysmal atrial fibrillation (4) Ribs, multiple fractures (5) Hypertension (6) History of CVA (cerebrovascular accident) (7) Diabetes Assessment/Plan feeling better all reviewed f/u tropoinin Monitor BP hear rate control. dc planning Subjective Constitutional: Reports: no symptoms HEENT: Repors: no symptoms Allergies: Coded Allergies: FUROSEMIDE (Unverified Allergy, Unknown, 12/07/17) Objective Last 24 Hour Vital Signs Date Time Temp Pulse Resp B/P (MAP) Pulse Ox O2 Delivery O2 Flow Rate FiO2 01/28/18 09:03 Room Air 01/28/18 08:02 75 16 Room Air 01/28/18 08:00 97.7 90 19 141/72 (95) 97 97.7 01/28/18 04:00 98.0 73 18 149/84 (105) 100 98.0 01/28/18 00:00 98.2 75 19 158/79 (105) 96 98.2 01/27/18 21:00 Room Air 01/27/18 20:00 98.5 83 19 133/63 (86) 95 98.5 01/27/18 19:00 73 18 Room Air 01/27/18 16:00 98.8 80 20 147/74 (98) 99 98.8 Intake and Output 01/27/18 01/28/18 19:00 07:00 Intake Total 840 ml 360 ml Output Total 600 ml 1500 ml Balance 240 ml -1140 ml Intake Oral 840 ml 360 ml Output Urine Total 600 ml 1500 ml # Bowel Movements 1 General Appearance: WD/WN HEENT: normocephalic, atraumatic Respiratory/Chest: chest wall non-tender, lungs clear Cardiovascular: normal peripheral pulses, normal rate Abdomen: normal bowel sounds, soft, non tender Genitourinary: normal external genitalia Skin: no rash Neurologic/Psychiatric: coater II-XII grossly normal Laboratory Tests 01/28/18 05:45: White Blood Count 5.9, Red Blood Count 2.83L, Hemoglobin 8.4L, Hematocrit 25.6L , Mean Corpuscular Volume 90, Mean Corpuscular Hemoglobin 29.6, Mean Corpuscular Hemoglobin Concent 32.8, Red Cell Distribution Width 14.2, Platelet Count 283, Mean Platelet Volume 7.9, Neutrophils (%) (Auto) 52.8, Lymphocytes (% ) (Auto) 24.5, Monocytes (%) (Auto) 10.6H, Eosinophils (%) (Auto) 9.8H, Basophils (%) (Auto) 2.4H, Sodium Level 137, Potassium Level 4.6, Chloride Level 104, Carbon Dioxide Level 28, Anion Gap 6, Blood Urea Nitrogen 19H, Creatinine 1.8H, Estimat Glomerular Filtration Rate , Glucose Level 101, Calcium Level 7.9L Current Medications Medications (Trade) Dose Ordered Sig/Kim Route PRN Reason Start Time Stop Time Status Last Admin Dose Admin Acetaminophen (Tylenol) 650 mg Q4H PRN ORAL T>100.5 01/26/18 17:00 02/21/18 16:59 Al Hydroxide/Mg Hydroxide (Mylanta II) 30 ml Q6H PRN ORAL dyspepsia 01/26/18 17:00 02/21/18 16:59 Amiodarone HCl (Cordarone) 200 mg DAILY ORAL 01/27/18 16:30 02/27/18 16:29 01/28/18 08:47 Aspirin (ASA) 81 mg DAILY ORAL 01/27/18 09:00 02/23/18 08:59 01/28/18 08:46 Clonidine HCl (Catapres Tab) 0.1 mg Q4H PRN ORAL For SBP>160 01/26/18 18:15 02/21/18 18:05 Clopidogrel Bisulfate (Plavix) 75 mg DAILY ORAL 01/27/18 09:00 02/23/18 08:59 01/28/18 08:47 Dextrose (Dextrose 50%) 25 ml STAT PRN IV Hypoglycemia 01/26/18 17:00 02/25/18 16:59 Dextrose (Dextrose 50%) 50 ml STAT PRN IV Hypoglycemia 01/26/18 17:00 02/25/18 16:59 Docusate Sodium (Colace) 100 mg TWICE A DAY ORAL 01/26/18 18:00 02/23/18 08:59 01/26/18 17:25 Heparin Sodium (Porcine) (Heparin 5000 units/ml) 5,000 units EVERY 12 HOURS SUBQ 01/26/18 21:00 02/21/18 20:59 01/28/18 08:49 Insulin Aspart (NovoLOG) BEFORE MEALS AND HS SUBQ 01/26/18 17:30 02/25/18 17:29 01/28/18 11:59 Lorazepam (Ativan 2mg/ml 1ml) 0.5 mg Q4H PRN IV For Anxiety 01/26/18 17:00 01/29/18 16:59 Morphine Sulfate (Morphine Sulfate) 1 mg Q4H PRN IVP Severe Pain (Pain Scale 7-10) 01/26/18 17:00 01/29/18 16:59 Nitroglycerin (Ntg) 0.4 mg Q5M X 3 DOSES PRN SL Prn Chest Pain 01/26/18 16:30 02/21/18 18:01 Ondansetron HCl (Zofran) 4 mg Q6H PRN IVP Nausea & Vomiting 01/26/18 17:00 02/21/18 16:59 Polyethylene Glycol (Miralax) 17 gm HSPRN PRN ORAL Constipation 01/26/18 21:00 02/21/18 20:59 Promethazine HCl/ Codeine (Phenergan with Codeine) 5 ml Q4H PRN ORAL For Cough 01/26/18 17:00 02/21/18 16:59 Temazepam (Restoril) 15 mg HSPRN PRN ORAL Insomnia 01/26/18 21:00 01/29/18 20:59 Tania Angel MD Jan 28, 2018 13:35
[2018-01-28 14:29] VITALS: BP 139/70
--- NOTE | 2018-01-28 15:45 | Neurology Progress Note ---
Interim History Interim History Interim History Mr. Woodard feels better generally. The mind is clear. The left upper extremity is still weak and in addition the forearm and had is numb over the dorsal aspect. He has noticed no new neurological symptoms. His Zio-patch has still not been analyzed. He has had no further episodes of loss of consciousness. Review of Systems Neuro Review of Systems Benign. Objective Physical Exam Last Vital Signs Date Time Temp Pulse Resp B/P (MAP) Pulse Ox O2 Delivery O2 Flow Rate FiO2 01/28/18 14:29 97.6 76 20 139/70 (93) 98 97.6 01/28/18 09:03 Room Air Laboratory Tests Test 01/28/18 05:45 White Blood Count 5.9 K/UL (4.8-10.8) Red Blood Count 2.83 M/UL (4.70-6.10) L Hemoglobin 8.4 G/DL (14.2-18.0) L Hematocrit 25.6 % (42.0-52.0) L Mean Corpuscular Volume 90 FL (80-99) Mean Corpuscular Hemoglobin 29.6 PG (27.0-31.0) Mean Corpuscular Hemoglobin Concent 32.8 G/DL (32.0-36.0) Red Cell Distribution Width 14.2 % (11.6-14.8) Platelet Count 283 K/UL (150-450) Mean Platelet Volume 7.9 FL (6.5-10.1) Neutrophils (%) (Auto) 52.8 % (45.0-75.0) Lymphocytes (%) (Auto) 24.5 % (20.0-45.0) Monocytes (%) (Auto) 10.6 % (1.0-10.0) H Eosinophils (%) (Auto) 9.8 % (0.0-3.0) H Basophils (%) (Auto) 2.4 % (0.0-2.0) H Sodium Level 137 MMOL/L (136-145) Potassium Level 4.6 MMOL/L (3.5-5.1) Chloride Level 104 MMOL/L (98-107) Carbon Dioxide Level 28 MMOL/L (21-32) Anion Gap 6 mmol/L (5-15) Blood Urea Nitrogen 19 mg/dL (7-18) H Creatinine 1.8 MG/DL (0.55-1.30) H Estimat Glomerular Filtration Rate mL/min (>60) Glucose Level 101 MG/DL (74-106) Calcium Level 7.9 MG/DL (8.5-10.1) L Neurologic Exam Objective PHYSICAL EXAMINATION: GENERAL: He is a well-developed, well-nourished, pleasant gentleman, lying in bed, in no acute distress. HEAD: Normocephalic and atraumatic. EENT: Examination benign. NECK: No neck rigidity was observed. NEUROLOGIC EXAMINATION: MENTAL STATUS EXAMINATION: He was awake and alert. He was oriented to person, place, and time. He was able to recall 3/3 words immediately after 1 minute and after 3 minutes on the second trial. He was able to remember presidents Trump through Nicholson senior. His mathematical skills were good. His visuospatial function was preserved. SPEECH: He had no dysarthria. LANGUAGE: He had no aphasia. CRANIAL NERVE EXAMINATION: II: The visual scales were intact to confrontation testing. III, IV & : External ocular movements were full and the pupils 3 mm in diameter, equal, round, regular, and reactive to light. V: He had normal facial sensations and the temporales, masseters, and pterygoids functioned normally. VII: He had a trace right VII central facial paresis. VIII: He was able to hear well bilaterally and had no nystagmus. IX: The palate moved symmetrically on phonation. X: He had no hoarseness of voice. XI: The sternocleidomastoids and trapezii functioned normally. XII: The tongue was in the midline without any fasciculations or atrophy. MOTOR SYSTEM: The tone was normal in all four extremities. Examination of muscle mass revealed no focal wasting. Examination of power revealed G 5/5 power except for G 4+/5 power in the left finger flexors and G 3/5 power in the left finger extensors and wrist extensors. SENSORY EXAMINATION: He had intact sensations to pinprick, light touch, and graphesthesia. He however complained of a subjective alteration to light touch over the dorsum of his left forearm and hand. COORDINATION: He performed well on [id number] and [id number] testing. On Romberg test, he swayed, but did not fall to one side or the other. REFLEXES: Trace+ and bilaterally symmetrical at the biceps, triceps, brachioradialis, knees, and zero at both ankles. The plantar responses were flexor bilaterally. STANCE: He had a minimally wide-based, but stable stance. GAIT: He walked with a minimally wide-based, but stable gait. Impression/Recommendations Diagnostic Impression 1. Mr. Everardo Woodard is a 72-year-old, right-handed, gentleman, who does have a past history of hypertension, dyslipidemia, diabetes mellitus, congestive heart failure, cerebrovascular disease with a prior stroke a few years ago and multiple episodes of loss of consciousness thought to be fainting spells. He was hospitalized after he had another syncopal episode at home and fell down. He was apparently on the floor for the next 10 days. He was finally found by neighbours and brought to the hospital. 2. He feels better generally. The mind is clear. The left upper extremity is still weak and in addition the forearm and hand is numb over the dorsal aspect. He has noticed no new neurological symptoms. His Zio-patch has still not been analyzed. He has had no further episodes of loss of consciousness. 3. On neurological examination at this time, he does have a trace right VII central facial paresis, weakness in the left upper extremity, altered sensations over the left forearm and hand, globally diminished deep tendon reflexes with loss of ankle jerks, a wide-based stance and a wide-based gait. 4. The CT scan of the brain without contrast done on 01/19/18 revealed "no evidence of acute intracranial hemorrhage, mass effect or cortical edema. Atrophy and nonspecific periventricular hypoattenuation suggestive of chronic ischemic microvascular changes." 5. The MRI of the brain done on 01/24/18 revealed a tiny focus of diffusion restriction high within the right frontal lobe consistent with an acute infarct. This focus is about 3 mm in size. 6. Laboratory Data obtained thus far revealed that he is anemic with a hemoglobin of 8.3. His chemistry panel on admission revealed that his BUN is elevated to 40, creatinine elevated to 2.5, and his albumin was low at 2.7. His urinalysis reveals 1+ leukocyte esterase, 2-4 red blood cells, and 2-4 white blood cells per high-power field. 7. The patient's history and neurological examination are most compatible with multiple episodes of loss of consciousness most probably syncopal episodes. The most likely etiology for the syncopal episodes would be autonomic dysfunction. 8. He does have new left upper extremity weakness. It is most probably related to a peripheral nerve injury and less likely the recent right frontal infarct seen on the MRI of the brain which is small in size. Recommendations 1. Continue present management. 2. Await results of Zio-patch cardiac monitoring. 3. Continue Plavix and statin. 4. PT/OT. Evert Capps M.D., M.S.P.Osvaldo. EVERT CAPPS Jan 28, 2018 15:45
--- NOTE | 2018-01-28 16:10 | Internal Med Progress Note ---
Subjective Date of Service: Jan 28, 2018 Physician Name Renzo Buckner Attending Physician Reynaldo Garland MD Current Medications Medications (Trade) Dose Ordered Sig/Kim Route PRN Reason Start Time Stop Time Status Last Admin Dose Admin Acetaminophen (Tylenol) 650 mg Q4H PRN ORAL T>100.5 01/26/18 17:00 02/21/18 16:59 Al Hydroxide/Mg Hydroxide (Mylanta II) 30 ml Q6H PRN ORAL dyspepsia 01/26/18 17:00 02/21/18 16:59 Amiodarone HCl (Cordarone) 200 mg DAILY ORAL 01/27/18 16:30 02/27/18 16:29 01/28/18 08:47 Aspirin (ASA) 81 mg DAILY ORAL 01/27/18 09:00 02/23/18 08:59 01/28/18 08:46 Clonidine HCl (Catapres Tab) 0.1 mg Q4H PRN ORAL For SBP>160 01/26/18 18:15 02/21/18 18:05 Clopidogrel Bisulfate (Plavix) 75 mg DAILY ORAL 01/27/18 09:00 02/23/18 08:59 01/28/18 08:47 Dextrose (Dextrose 50%) 25 ml STAT PRN IV Hypoglycemia 01/26/18 17:00 02/25/18 16:59 Dextrose (Dextrose 50%) 50 ml STAT PRN IV Hypoglycemia 01/26/18 17:00 02/25/18 16:59 Docusate Sodium (Colace) 100 mg TWICE A DAY ORAL 01/26/18 18:00 02/23/18 08:59 01/26/18 17:25 Heparin Sodium (Porcine) (Heparin 5000 units/ml) 5,000 units EVERY 12 HOURS SUBQ 01/26/18 21:00 02/21/18 20:59 01/28/18 08:49 Insulin Aspart (NovoLOG) BEFORE MEALS AND HS SUBQ 01/26/18 17:30 02/25/18 17:29 01/28/18 11:59 Lorazepam (Ativan 2mg/ml 1ml) 0.5 mg Q4H PRN IV For Anxiety 01/26/18 17:00 01/29/18 16:59 Morphine Sulfate (Morphine Sulfate) 1 mg Q4H PRN IVP Severe Pain (Pain Scale 7-10) 01/26/18 17:00 01/29/18 16:59 Nitroglycerin (Ntg) 0.4 mg Q5M X 3 DOSES PRN SL Prn Chest Pain 01/26/18 16:30 02/21/18 18:01 Ondansetron HCl (Zofran) 4 mg Q6H PRN IVP Nausea & Vomiting 01/26/18 17:00 02/21/18 16:59 Polyethylene Glycol (Miralax) 17 gm HSPRN PRN ORAL Constipation 01/26/18 21:00 02/21/18 20:59 Promethazine HCl/ Codeine (Phenergan with Codeine) 5 ml Q4H PRN ORAL For Cough 01/26/18 17:00 02/21/18 16:59 Temazepam (Restoril) 15 mg HSPRN PRN ORAL Insomnia 01/26/18 21:00 01/29/18 20:59 Allergies: Coded Allergies: FUROSEMIDE (Unverified Allergy, Unknown, 12/07/17) ROS Limited/Unobtainable: No Constitutional: Reports: no symptoms HEENT: Reports: no symptoms Cardiovascular: Reports: no symptoms Respiratory: Reports: no symptoms Gastrointestinal/Abdominal: Reports: no symptoms Genitourinary: Reports: no symptoms Neurologic/Psychiatric: Reports: no symptoms Subjective 72 YO M admitted with syncope. Now elevated troponin and acute DVT. Cover for Int Luis Daniel-Dr Garland. Objective Last Vital Signs Date Time Temp Pulse Resp B/P (MAP) Pulse Ox O2 Delivery O2 Flow Rate FiO2 01/28/18 14:29 97.6 76 20 139/70 (93) 98 97.6 01/28/18 09:03 Room Air Laboratory Tests Test 01/28/18 05:45 White Blood Count 5.9 K/UL (4.8-10.8) Red Blood Count 2.83 M/UL (4.70-6.10) L Hemoglobin 8.4 G/DL (14.2-18.0) L Hematocrit 25.6 % (42.0-52.0) L Mean Corpuscular Volume 90 FL (80-99) Mean Corpuscular Hemoglobin 29.6 PG (27.0-31.0) Mean Corpuscular Hemoglobin Concent 32.8 G/DL (32.0-36.0) Red Cell Distribution Width 14.2 % (11.6-14.8) Platelet Count 283 K/UL (150-450) Mean Platelet Volume 7.9 FL (6.5-10.1) Neutrophils (%) (Auto) 52.8 % (45.0-75.0) Lymphocytes (%) (Auto) 24.5 % (20.0-45.0) Monocytes (%) (Auto) 10.6 % (1.0-10.0) H Eosinophils (%) (Auto) 9.8 % (0.0-3.0) H Basophils (%) (Auto) 2.4 % (0.0-2.0) H Sodium Level 137 MMOL/L (136-145) Potassium Level 4.6 MMOL/L (3.5-5.1) Chloride Level 104 MMOL/L (98-107) Carbon Dioxide Level 28 MMOL/L (21-32) Anion Gap 6 mmol/L (5-15) Blood Urea Nitrogen 19 mg/dL (7-18) H Creatinine 1.8 MG/DL (0.55-1.30) H Estimat Glomerular Filtration Rate mL/min (>60) Glucose Level 101 MG/DL (74-106) Calcium Level 7.9 MG/DL (8.5-10.1) L Intake and Output 01/27/18 01/28/18 19:00 07:00 Intake Total 840 ml 360 ml Output Total 600 ml 1500 ml Balance 240 ml -1140 ml Intake Oral 840 ml 360 ml Output Urine Total 600 ml 1500 ml # Bowel Movements 1 Objective General Appearance: WD/WN, no apparent distress, alert EENT: PERRL/EOMI, normal ENT inspection, TMs normal Neck: non-tender, normal alignment, supple, normal inspection Cardiovascular: normal peripheral pulses, normal rate, regular rhythm, no gallop/murmur, no JVD Respiratory/Chest: chest wall non-tender, lungs clear, normal breath sounds, no accessory muscle use, respiratory distress Abdomen: normal bowel sounds, non tender, soft, no organomegaly, no mass Extremities: other - left hemiparesis Neurologic: poultry vaccinator II-XII grossly normal, motor weakness Skin: normal pigmentation, warm/dry Assessment/Plan Problem List: (1) Diabetes mellitus type II, uncontrolled Assessment & Plan: Elevated renal funct test-unable to start metformin. Start novolog sliding scale. (2) Left hemiparesis (3) Acute deep vein thrombosis (DVT) of left peroneal vein Assessment & Plan: No treatment - See hematology consult. Cont SQ heparin for now (4) Syncope Assessment & Plan: Await MRI brain result. ?CVA vs IA? See cardiology note. (5) NSTEMI (non-ST elevated myocardial infarction) (6) History of CVA (cerebrovascular accident) Assessment & Plan: MRI brain results=acute frontal lobe CVA (7) Hypokalemia Assessment & Plan: Resolved (8) Hypertension Assessment & Plan: PRN clonidine (9) Pulmonary nodule (10) Constipation Assessment & Plan: KUB=constipation. Dulcolax supp prn. Magnesium citrate PRN Status: progressing Assessment/Plan Discharge planning: [facility] vs [facility] per Dr Barfield with [facility] Renzo Buckner MD Jan 28, 2018 16:10
--- NOTE | 2018-01-28 16:39 | General Progress Note ---
Assessment/Plan Status: stable Assessment/Plan # DVT of the distal peroneal vein on the left leg. --> Since this is a distal vein, we recommend to hold off on anticoagulation. --> Pt is asymptomatic at this time. # Pulmonary nodule. --> At this time, continue to closely monitor. --> Chest CT: Scattered areas of clustered nodular opacities in the right lung which may be infectious or inflammatory in etiology. Correlate clinically. Follow-up chest CT in 3-6 months recommended to assess for stability/resolution. # Anemia due to underlying chronic disease. --> Closely monitor for improvement. --> anemia w/u has been reveiwed, will trend daily --> Hgb goal >7 # Paroxysmal atrial fibrillation. --> Pt on aspirin, Plavix, and amiodarone. The time the note was entered does not necessarily correspond to the time the patient was seen. Subjective Date patient seen: Jan 28, 2018 Hematologic/Lymphatic: Reports: anemia Allergies: Coded Allergies: FUROSEMIDE (Unverified Allergy, Unknown, 12/07/17) All Systems: reviewed and negative except above Subjective No acute events. Vitals are stable. DC planning. Objective Last 24 Hour Vital Signs Date Time Temp Pulse Resp B/P (MAP) Pulse Ox O2 Delivery O2 Flow Rate FiO2 01/28/18 14:29 97.6 76 20 139/70 (93) 98 97.6 01/28/18 09:03 Room Air 01/28/18 08:02 75 16 Room Air 01/28/18 08:00 97.7 90 19 141/72 (95) 97 97.7 01/28/18 04:00 98.0 73 18 149/84 (105) 100 98.0 01/28/18 00:00 98.2 75 19 158/79 (105) 96 98.2 01/27/18 21:00 Room Air 01/27/18 20:00 98.5 83 19 133/63 (86) 95 98.5 01/27/18 19:00 73 18 Room Air Intake and Output 01/27/18 01/28/18 19:00 07:00 Intake Total 840 ml 360 ml Output Total 600 ml 1500 ml Balance 240 ml -1140 ml Intake Oral 840 ml 360 ml Output Urine Total 600 ml 1500 ml # Bowel Movements 1 Laboratory Tests 01/28/18 05:45: White Blood Count 5.9, Red Blood Count 2.83L, Hemoglobin 8.4L, Hematocrit 25.6L , Mean Corpuscular Volume 90, Mean Corpuscular Hemoglobin 29.6, Mean Corpuscular Hemoglobin Concent 32.8, Red Cell Distribution Width 14.2, Platelet Count 283, Mean Platelet Volume 7.9, Neutrophils (%) (Auto) 52.8, Lymphocytes (% ) (Auto) 24.5, Monocytes (%) (Auto) 10.6H, Eosinophils (%) (Auto) 9.8H, Basophils (%) (Auto) 2.4H, Sodium Level 137, Potassium Level 4.6, Chloride Level 104, Carbon Dioxide Level 28, Anion Gap 6, Blood Urea Nitrogen 19H, Creatinine 1.8H, Estimat Glomerular Filtration Rate , Glucose Level 101, Calcium Level 7.9L Height (Feet): 5 Height (Inches): 5.00 Weight (Pounds): 149 General Appearance: no apparent distress EENT: PERRL/EOMI Neck: normal alignment Cardiovascular: normal peripheral pulses Respiratory/Chest: no respiratory distress Abdomen: normal bowel sounds Raul Contreras MD Jan 28, 2018 16:39
[2018-01-28 16:53] VITALS: BP 130/86
--- NOTE | 2018-01-28 17:12 | Cardiac Electrophysiology PN ---
Assessment/Plan Assessment/Plan 1. Troponin leak. The levels are flat at 0.9 and 0.9, most likely due to the patient's renal failure, the creatinine is 2.3. The patient does not have any chest pain either. Echocardiogram showed EF 55%. Continue aspirin and Plavix. 2. Paroxysmal Atrial fibrillation. In SR on aspirin, Plavix and Amiodarone. 3. Status post recurrent syncope. MRI Brain done. Had Zio patch for more than 2 weeks and was removed awaiting data interpretation. 4. History of cerebrovascular accident. 5. Renal failure, creatinine of 2.5. 6. Left leg acute DFT. F/U Dr Michael OBRIEN RN and Dr Jean Baptiste Subjective Subjective No CP or SOB.No events. RN at bedside. Objective Last 24 Hour Vital Signs Date Time Temp Pulse Resp B/P (MAP) Pulse Ox O2 Delivery O2 Flow Rate FiO2 01/28/18 16:53 97.4 77 20 130/86 (101) 98 97.4 01/28/18 14:29 97.6 76 20 139/70 (93) 98 97.6 01/28/18 09:03 Room Air 01/28/18 08:02 75 16 Room Air 01/28/18 08:00 97.7 90 19 141/72 (95) 97 97.7 01/28/18 04:00 98.0 73 18 149/84 (105) 100 98.0 01/28/18 00:00 98.2 75 19 158/79 (105) 96 98.2 01/27/18 21:00 Room Air 01/27/18 20:00 98.5 83 19 133/63 (86) 95 98.5 01/27/18 19:00 73 18 Room Air Intake and Output 01/27/18 01/28/18 19:00 07:00 Intake Total 840 ml 360 ml Output Total 600 ml 1500 ml Balance 240 ml -1140 ml Intake Oral 840 ml 360 ml Output Urine Total 600 ml 1500 ml # Bowel Movements 1 Laboratory Tests Test 01/28/18 05:45 White Blood Count 5.9 K/UL (4.8-10.8) Red Blood Count 2.83 M/UL (4.70-6.10) L Hemoglobin 8.4 G/DL (14.2-18.0) L Hematocrit 25.6 % (42.0-52.0) L Mean Corpuscular Volume 90 FL (80-99) Mean Corpuscular Hemoglobin 29.6 PG (27.0-31.0) Mean Corpuscular Hemoglobin Concent 32.8 G/DL (32.0-36.0) Red Cell Distribution Width 14.2 % (11.6-14.8) Platelet Count 283 K/UL (150-450) Mean Platelet Volume 7.9 FL (6.5-10.1) Neutrophils (%) (Auto) 52.8 % (45.0-75.0) Lymphocytes (%) (Auto) 24.5 % (20.0-45.0) Monocytes (%) (Auto) 10.6 % (1.0-10.0) H Eosinophils (%) (Auto) 9.8 % (0.0-3.0) H Basophils (%) (Auto) 2.4 % (0.0-2.0) H Sodium Level 137 MMOL/L (136-145) Potassium Level 4.6 MMOL/L (3.5-5.1) Chloride Level 104 MMOL/L (98-107) Carbon Dioxide Level 28 MMOL/L (21-32) Anion Gap 6 mmol/L (5-15) Blood Urea Nitrogen 19 mg/dL (7-18) H Creatinine 1.8 MG/DL (0.55-1.30) H Estimat Glomerular Filtration Rate mL/min (>60) Glucose Level 101 MG/DL (74-106) Calcium Level 7.9 MG/DL (8.5-10.1) L Objective HEAD AND NECK: No JVD. LUNGS: Clear. CARDIOVASCULAR: Regular S1 and S2 with no gallop or murmur. ABDOMEN: Soft. EXTREMITIES: No pitting edema. Abiodun Sands MD Jan 28, 2018 17:12
[2018-01-28] MEDS ORDERED: AMIODARONE HCL400 M1 ORAL (18:43)
[2018-01-28] MEDS ORDERED: ACETAMINOPHEN325 M1 ORAL (18:43)
[2018-01-28] MEDS ORDERED: MYLANTA30 M1 ORAL (18:44)
[2018-01-28] MEDS ORDERED: COLACE100 MG ORAL (18:45)
[2018-01-28] MEDS ORDERED: NOVOLIN R100 UNIT/1 SUBQ (18:45)
[2018-01-28] MEDS ORDERED: HEPARIN SO5000 UNIT2 SUBQ (18:45)
[2018-01-28] MEDS ORDERED: MORPHINE SU4 MG/1 ML IV (18:46)
[2018-01-28] MEDS ORDERED: ATIVAN0.5 MG ORAL (18:46)
[2018-01-28] MEDS ORDERED: NITROSTAT0.4 M1 SL (18:46)
[2018-01-28] MEDS ORDERED: MIRALAX17 G2 ORAL (18:47)
[2018-01-28] MEDS ORDERED: ZOFRAN 4 MG4 MG/2 ML IV (18:47)
[2018-01-28] MEDS ORDERED: PROMETH-CODEIN 65 ML PO (18:47)
[2018-01-28] MEDS ORDERED: CATAPRES0.1 MG ORAL ×2 (18:48→18:49)
[2018-01-28] MEDS ORDERED: RESTORIL15 MG ORAL (18:48)
[2018-01-28 20:30] VITALS: BP 149/84
--- NOTE | 2018-01-29 09:41 | Cardiology Report ---
APPROVED REPORT EXAM: Two-dimensional and M-mode echocardiogram with Doppler and color Doppler. INDICATION Left ventricular function M-Mode DIMENSIONS IVSd1.4 (0.7-1.1cm)Left Atrium (MM)2.0 (1.6-4.0cm) LVDd4.0 (3.5-5.6cm)Aortic Root2.8 (2.0-3.7cm) PWd1.1 (0.7-1.1cm)Aortic Cusp Exc.2.2 (1.5-2.0cm) LVDs1.9 (2.5-4.0cm) PWs1.9 cm Normal left ventricular chamber size, systolic function and wall motion. Left ventricular ejection fraction estimated to be 55 %. No evidence of left ventricular hypertrophy. Small circumferential pericardial effusion, mostly anterior. All other cardiac chamber sizes are within normal limits. Focal aortic valve sclerosis with adequate cusp excursion. Thickened mitral valve leaflets with normal excursion. Mild mitral annulus and aortic root calcification. Pulmonic valve not visualized. Normal tricuspid valve structure. Subcostal views not obtainable. A color flow and spectral Doppler study was performed and revealed: No aortic insufficiency. No mitral regurgitation. Mitral inflow velocities indicates possible pseudo normalization pattern implying significant left ventricular diastolic dysfunction (Grade II). No tricuspid regurgitation. Tricuspid systolic velocities suggests peak right ventricular systolic pressure of 9 mmHg.
--- NOTE | 2018-01-30 09:40 | Discharge Summary ---
Discharge Summary Discharge Summary _ DATE OF ADMISSION: 01/22/2018 DATE OF DISCHARGE: 01/28/2018 REASON FOR ADMISSION: 72 years old male with past medical history significant for diabetes, hypertension , paroxysmal atrial fibrillation ,CVA ,presented with increased left-sided weakness after syncopal episode. He also reported hitting his chest and right-sided chest pain after fall due to syncopal episode. Physical exam was consistent with possible rib fracture. CT of the chest revealed right sided rib fractures 6th through 10th. CT of the head revealed no acute intracranial pathology. Patient started on the IV hydration. Lactic acid was within normal limits 1.3. Troponin elevated 0.962. No leukocytosis Potassium 3.2 BUN 40, creatinine 2.5 with baseline of 1.6. Urinalysis was negative for evidence of UTI. EKG revealed normal sinus rhythm, no acute ischemic changes. Patient was given aspirin, nitroglycerin . Patient received antihypertensive medication for elevated blood pressure 198/82 . Patient received analgesia . Patient admitted with diagnoses of elevated troponin , possible NSTEDMI, renal insufficiency, stroke ,multiply rib fracture, paroxysmal atrial fibrillation, syncope. CONSULTANTS: member of parliament Dr. Sands neurologist Dr. Jean Baptiste pulmonary Dr. Angel jewelry bench molder/oncologist Dr. Contreras psychiatrist [facility] COURSE: Patient initially admitted to [place]. Neurology consult was requested. As mentioned above, CT of the brain without contrast revealed no evidence of acute intracranial pathology but showed findings consistent with chronic ischemic microvascular disease. MRI of the brain revealed recent right frontal infarct. Patient had left upper extremity weakness, which according to neurologist, was most likely related to recent infarct. Patient had multiple episodes of loss of consciousness , probably syncopal episodes. According to neurologist most likely etiology for syncopal episodes was autonomic dysfunction. Carotid duplex was essentially stable. Lipid panel was within normal limits. Patient was on aspirin, Plavix and statin. Organizational Development Manager closely followed. Troponin was downtrending. According to member of parliament, troponin levels were flat and troponin elevation was most likely were due to renal failure. No cardiac chest pain. Echocardiogram revealed preserved ejection fraction of 55% and evidence of significant left ventricular diastolic dysfunction. Patient exhibited evidence of paroxysmal atrial fibrillation and spontaneously converted to sinus rhythm. Patient was on amiodarone ,dose was decreased. TSH was within normal limits. Patient had Zio patch for more than 2 weeks , which was removed and awaiting for data interpretation. Patient was working with physical and occupational therapists. Diet was provided as per speech therapist recommendations after swallow evaluation with strict aspiration/reflux precautions. Patient noted to have on to be emancipated and malnourished upon admission. Dietary recommendations implemented in plan of care and to be continued at the [facility] facility. Venous duplex bilateral lower extremity revealed acute DVT left lower extremity in peroneal vein. Since peroneal vein was a distal vein, jewelry bench molder recommended to hold off on anticoagulation . Patient was asymptomatic. DVT prophylaxis provided. Patient was on gentle IV hydration . Renal parameters and electrolytes were closely monitored , electrolytes were corrected as needed and nephrotoxins were avoided. Prior to discharge creatinine from 2.5 down to 1.8 and potassium after replacement stable 4.6. Director Of Medical Education closely followed. Supplemental oxygen provided as needed to keep pulse oximetry above 92%. Pulmonary toilet was on standby as needed Chest x-ray revealed no acute cardiopulmonary pathology. CT of the chest revealed subtle fractures involving the right 6th through 10th ribs anterior, but no pneumothorax or pleural effusion. Scattered areas of clustered nodular opacities in the right lung which may be infectious or inflammatory in etiology. Follow-up CT of the chest in 3-6 months was recommended to assess for stability/ resolution. Hemoglobin and hematocrit were closely monitored with goal to keep hemoglobin above 7. No need for transfusion. According to jewelry bench molder patient had anemia of chronic disease. Blood pressure was closely monitored with liberal blood pressure readings to allow for adequate cerebral perfusion. Blood sugar was managed with sliding scale of insulin. Hemoglobin A1c 6.[address] was found at the [facility] facility for further management. Patient was stable for discharge. FINAL DIAGNOSES: Multiply episodes of syncopal episodes, likely due to autonomic dysfunction Likely troponin leak Possible NSTEMI Multiply rib fracture, on the right Acute DVT left lower extremity, peroneal vein Paroxysmal atrial fibrillation Recent right frontal CVA Renal failure, acute on chronic Emancipated with malnutrition Anemia of chronic disease Hypertension Pulmonary nodule Diabetes mellitus DISCHARGE MEDICATIONS: See Medication Reconciliation list. DISCHARGE INSTRUCTIONS: Patient was discharged to the [facility] facility. Follow up with medical doctor at the facility. I have been assigned to dictate discharge summary for this account. I was not involved in the patient's management. Farnaz Olson NP Jan 30, 2018 09:40
--- NOTE | 2018-01-31 19:52 | General Progress Note ---
Assessment/Plan Assessment/Plan Anxiety d/o Insomnia ativan prn provided ro/st Subjective Neurologic/Psychiatric: Reports: anxiety, depressed, emotional problems Allergies: Coded Allergies: FUROSEMIDE (Unverified Allergy, Unknown, 12/07/17) Objective Height (Feet): 5 Height (Inches): 5.00 Weight (Pounds): 149 General Appearance: no apparent distress, alert Neurologic: oriented x 3, depressed affect Kiera Earl MD Jan 31, 2018 19:52
== END 2018-01-28 21:30 | DRG 73 ==
LOC: EDBD 13:26 → EMR 14:00 → EDBEDREQ 14:50 → EDBEDREQSVC 14:50 → 2W 15:20 → EDBEDREQ 15:54 → 2W 16:36 → 2E 01-23 17:23 → 4W 01-26 16:34
DX: G90.8 Other disorders of autonomic nervous system (principal); I21.4 Non-ST elevation (NSTEMI) myocardial infarction; E43 Unspecified severe protein-calorie malnutrition; S22.41XA Multiple fractures of ribs, right side, initial encounter for closed fracture; I69.354 Hemiplegia and hemiparesis following cerebral infarction affecting left non-dominant side; I82.492 Acute embolism and thrombosis of other specified deep vein of left lower extremity; I11.0 Hypertensive heart disease with heart failure; I50.9 Heart failure, unspecified; R55 Syncope and collapse; E11.9 Type 2 diabetes mellitus without complications; Z88.8 Allergy status to other drugs, medicaments and biological substances; W19.XXXA Unspecified fall, initial encounter; Y92.009 Unspecified place in unspecified non-institutional (private) residence as the place of occurrence of the external cause; R91.1 Solitary pulmonary nodule; I48.0 Paroxysmal atrial fibrillation; Z79.02 Long term (current) use of antithrombotics/antiplatelets; D63.8 Anemia in other chronic diseases classified elsewhere; E78.5 Hyperlipidemia, unspecified; E11.65 Type 2 diabetes mellitus with hyperglycemia; E87.6 Hypokalemia; I25.10 Atherosclerotic heart disease of native coronary artery without angina pectoris; Z98.61 Coronary angioplasty status
CPT/HCPCS: 36415; 70450; 70551; 71045; 71250; 74018; 80048; 80053; 80061; 81001; 81003; 82140; 82248; 82550; 82962; 83036; 83605; 83880; 84133; 84300; 84443; 84484; 84550; 85025; 85610; 85730; 89050; 93005; 93306; 93880; 93970; 94664; 99285; J1815; J2405; J8499